=== PATIENT | female | born 1990 | race Caucasian/White ===

== ENCOUNTER 2020-03-29 14:25 | Outpatient (REF) | payer OTHER, SELFPAY | END 2020-03-29 14:26 | disposition home or self-care (01) | LOC: HO.LAB 14:25 | PROVIDERS: Visit Provider Internal Medicine | DX: Z20.828 Contact with and (suspected) exposure to other viral communicable diseases (principal) | CPT/HCPCS: C9803; U0003 ==

== ENCOUNTER 2020-04-06 12:52 | Outpatient (REF) | payer OTHER, SELFPAY ==
[2020-04-06 14:15] LABS: MANUAL DIFF FLAG NO
[2020-04-06 14:22] LABS: Basophils Percent Auto 0.3 % (0-2); Eosinophils Absolute Auto 0.1 X10*3/uL (0.0-0.4); Eosinophils Percent Auto 1.5 % (0-4); Hematocrit 43.2 % (37-47); Hemoglobin 13.6 g/dl (12.0-16.0); Imm Gran Abs Auto 0.03 X10*3/uL (0.00-0.03); Imm Gran Pct Auto 0.3 % (0.0-0.4); Lymphocytes Absolute Auto 2.8 X10*3/uL (1.2-4.9); Lymphocytes Percent Auto 29.3 % (20-40); Mean Corpuscular HGB Conc 31.5 g/dl (31.0-35.0); Mean Corpuscular Hemoglobin 27.3 pg (27.0-33.0); Mean Corpuscular Volume 86.6 fL (80-98); Mean Platelet Volume 9.9 fL (9.4-12.3); Monocytes Absolute Auto 0.7 X10*3/uL (0.1-1.2); Monocytes Percent Auto 6.8 % (2-11); Neutrophils Percent Auto 61.8 % (45-73); Platelet Count 393 X10*3/uL (160-400); Red Blood Count 4.99 X10*6/uL (4.20-5.50); Red Cell Distribution Width 13.4 % (11.0-16.0); White Blood Count 9.6 X10*3/uL (4.8-10.8)
[2020-04-06 14:43] LABS: Glucose Urine UA NEG (NEG); Leukocyte Esterase Urine NEG (NEG); Nitrite Urine NEG (NEG); PH 5.5 (5.0-8.0); Specific Gravity - Urine >= 1.030 (1.005-1.025); Urine Blood 2+ (NEG); Urine Ketones NEG (NEG); Urine Protein NEG (NEG-TRACE)
[2020-04-06 14:44] LABS: Carbon Dioxide 27 mmol/L (22-29); Chloride 106 mmol/L (96-108); Potassium 4.4 mmol/l (3.3-5.1); Sodium 140 mmol/L (135-145)
[2020-04-06 14:44] LABS: Appearance Urine HAZY; Color Urine YELLOW
[2020-04-06 14:45] LABS: Alanine Aminotransferase 14 U/L (0-31); Albumin Level 4.3 g/dL (3.5-5.0); Alkaline Phosphatase 104 U/L (39-117); Anion Gap 11 (12-20); Aspartate Amino Transferase 13 U/L (5-31); Bilirubin Total 0.4 mg/dL (0.0-1.0); Blood Urea Nitrogen 11 mg/dL (9-16); C Reactive Protein 1.68 mg/dL (< or = 0.50); Calcium 9.6 mg/dL (8.4-10.2); Estimated Glomerular Filt Rate > 60; Glucose Random 107 mg/dL (60-115); Rheumatoid Factor < 15.0 IU/mL (<15.0); Total Protein 7.6 g/dL (6.5-8.0)
[2020-04-06 14:53] LABS: Bacteria Urine 2+ /LPF; Mucus Urine TRACE /LPF; Squamous Epithelial Cell Urine 3+ /LPF; WBC Urine 0 /HPF (0-4)
[2020-04-06 15:24] LABS: Erythrocyte Sedimentation Rate 14 MM/HR (0-20)
[2020-04-07 12:47] LABS: Anti DNA DS Antibody 2 IU/mL; Antibody to SS-A Antigen <1.0 NEG AI (<1.0 NEG); Antibody to SS-B Antigen <1.0 NEG AI (<1.0 NEG)
[2020-04-09 11:43] LABS: Cyclic Citrullinated Peptide 16 UNITS
[2020-04-09 14:02] LABS: Complement C3 173 mg/dL (83-193)
== END 2020-04-06 12:53 | disposition home or self-care (01) ==
LOC: HO.LAB 12:52
PROVIDERS: PCP Internal Medicine; Visit Provider Student in an Organized Health Care Education/Training Program
DX: R76.8 Other specified abnormal immunological findings in serum (principal)
CPT/HCPCS: 36415; 80053; 81001; 85025; 85652; 86140; 86160; 86200; 86225; 86235; 86431; 99202

== ENCOUNTER 2020-04-23 14:50 | Outpatient (REF) | payer OTHER, SELFPAY | END 2020-04-23 14:51 | disposition home or self-care (01) | LOC: HO.LAB 14:50 | PROVIDERS: Visit Provider Internal Medicine | DX: Z20.822 Contact with and (suspected) exposure to COVID-19 (principal) | CPT/HCPCS: 36415; C9803; U0003 ==

== ENCOUNTER → 2020-05-03 13:33 | Outpatient (BNVA) | payer OTHER, SELFPAY | PROVIDERS: PCP Internal Medicine; Visit Provider Student in an Organized Health Care Education/Training Program | DX: Z76.89 Persons encountering health services in other specified circumstances (principal) ==

== ENCOUNTER 2020-05-07 14:54 | Outpatient (REF) | payer OTHER, SELFPAY | END 2020-05-07 14:55 | disposition home or self-care (01) | LOC: HO.LAB 14:54 | PROVIDERS: Visit Provider Internal Medicine | DX: Z20.822 Contact with and (suspected) exposure to COVID-19 (principal) | CPT/HCPCS: 36415; C9803; U0003 ==

== ENCOUNTER 2020-07-19 13:51 | Outpatient (REF) | payer OTHER, SELFPAY ==
[2020-07-19 14:22] LABS: MANUAL DIFF FLAG NO
[2020-07-19 14:28] LABS: Basophils Percent Auto 0.3 % (0-2); Eosinophils Absolute Auto 0.1 X10*3/uL (0.0-0.4); Eosinophils Percent Auto 0.7 % (0-4); Hematocrit 42.6 % (37-47); Hemoglobin 13.5 g/dl (12.0-16.0); Imm Gran Abs Auto 0.03 X10*3/uL (0.00-0.03); Imm Gran Pct Auto 0.3 % (0.0-0.4); Lymphocytes Absolute Auto 2.4 X10*3/uL (1.2-4.9); Lymphocytes Percent Auto 22.6 % (20-40); Mean Corpuscular HGB Conc 31.7 g/dl (31.0-35.0); Mean Corpuscular Hemoglobin 27.2 pg (27.0-33.0); Mean Corpuscular Volume 85.9 fL (80-98); Mean Platelet Volume 10.4 fL (9.4-12.3); Monocytes Absolute Auto 0.8 X10*3/uL (0.1-1.2); Monocytes Percent Auto 6.9 % (2-11); Neutrophils Absolute Auto 7.5 X10*3/uL (2.0-8.3); Neutrophils Percent Auto 69.2 % (45-73); Platelet Count 327 X10*3/uL (160-400); Red Blood Count 4.96 X10*6/uL (4.20-5.50); Red Cell Distribution Width 13.3 % (11.0-16.0); White Blood Count 10.8 X10*3/uL (4.8-10.8)
[2020-07-19 14:53] LABS: Alanine Aminotransferase 14 U/L (0-31); Albumin Level 4.5 g/dL (3.5-5.0); Alkaline Phosphatase 104 U/L (39-117); Anion Gap 13 (12-20); Aspartate Amino Transferase 13 U/L (5-31); Bilirubin Total 0.7 mg/dL (0.0-1.0); Blood Urea Nitrogen 8 mg/dL (9-16); Calcium 9.4 mg/dL (8.4-10.2); Carbon Dioxide 25 mmol/L (22-29); Chloride 105 mmol/L (96-108); Cholesterol 171 mg/dL; Estimated Glomerular Filt Rate > 60; Glucose Fasting 87 mg/dL (60-99); HDL Cholesterol 33 mg/dL; LDL Cholesterol Calculated 123 mg/dl; Potassium 3.9 mmol/L (3.3-5.1); Sodium 139 mmol/L (135-145); Total Protein 7.6 g/dL (6.5-8.0); Triglycerides 77 mg/dL
[2020-07-19 15:13] LABS: TSH reflex Free T4 1.62 uIU/mL (0.32-4.0); Vitamin D 25-OH Total 13.6 ng/mL (>30)
[2020-07-19 17:06] LABS: Glucose Urine UA NEG (NEG); Leukocyte Esterase Urine TRACE (NEG); Nitrite Urine NEG (NEG); Specific Gravity - Urine 1.025 (1.005-1.025); UACC Culture Trigger YES; Urine Blood 2+ (NEG); Urine Ketones 5 MG/DL (NEG); Urine Protein NEG (NEG-TRACE)
[2020-07-19 17:39] LABS: Appearance Urine HAZY; Color Urine YELLOW
[2020-07-19 18:02] LABS: Bacteria Urine 1+ /LPF; RBC Urine 0-2 /HPF (0); Squamous Epithelial Cell Urine 2+ /LPF; WBC Urine 0-2 /HPF (0-4)
== END 2020-07-19 13:52 | disposition home or self-care (01) ==
LOC: HO.LAB 13:51
PROVIDERS: PCP Internal Medicine; Visit Provider Internal Medicine
DX: Z00.00 Encounter for general adult medical examination without abnormal findings (principal); E55.9 Vitamin D deficiency, unspecified; K21.9 Gastro-esophageal reflux disease without esophagitis; G43.909 Migraine, unspecified, not intractable, without status migrainosus; J30.9 Allergic rhinitis, unspecified; E66.9 Obesity, unspecified
CPT/HCPCS: 36415; 80053; 80061; 81001; 81003; 82306; 84443; 85025; 87086

== ENCOUNTER 2020-08-23 10:01 | Outpatient (REF) | payer OTHER, SELFPAY ==
[2020-08-23 10:19] LABS: COVID-19 Test Positive (Negative)
== END 2020-08-23 10:02 | disposition home or self-care (01) ==
LOC: HO.LAB 10:01
PROVIDERS: Visit Provider Internal Medicine
DX: Z20.822 Contact with and (suspected) exposure to COVID-19 (principal)
CPT/HCPCS: 36415; 87635; C9803

== ENCOUNTER 2020-09-05 05:57 | Emergency (ER) | payer OTHER, SELFPAY ==
[2020-09-05 07:42] VITALS: BP 155/100; PULSE 68; RESP 16; TEMP 36.6; O2SAT 99; BMI 30.2
--- NOTE | 2020-09-05 07:51 | ED_ITS ---
HPI - Back Pain/Injury General Chief Complaint: Back Pain/Injury Stated Complaint: Back Pain Time Seen by Provider: 09/05/20 06:22 Source: patient Mode of arrival: ambulatory Limitations: no limitations History of Present Illness HPI Narrative: 30-year-old female who presents emergency department for evaluation of midthoracic back pain x2 days. Patient states that she has recovered from COVID-19 and tested positive 2 weeks prior. She states that 2 days prior she had a gradual onset of mid thoracic pain. She describes as a sharp pain which is intermittent. The pain is worse with movement. The pain does not change with breathing. She denied fever, chills, shortness of breath or cough. She denied dyspnea on exertion. The pain does not radiate to her arms or legs. She states the pain is an intermittent, sharp pain which is 10/10 at its worst. She has been taking Advil without any relief of her discomfort. She states she has had similar pain in the past and has had relief with tramadol. She does not recall any injury to her back. Related Data Previous Rx's Medication Instructions Recorded loratadine 10 mg tablet 10 mg PO DAILY PRN 30 Days #30 tab 03/23/20 omeprazole 40 mg capsule,delayed 40 mg PO DAILY PRN 30 Days #30 cap 03/23/20 release tramadol 50 mg tablet 50 mg PO .2 to 3 times PRN 28 Days 03/23/20 #84 tab azithromycin 250 mg tablet See Rx Instructions PO .COMPLEX #6 05/15/20 tab fluticasone propionate 50 2 spray INTRANASAL DAILY PRN 30 05/20/20 mcg/actuation nasal Days #16 g spray,suspension cyclobenzaprine 10 mg PO TID PRN #20 tab 09/05/20 tramadol 50 mg PO Q6H PRN 3 Days #10 tab 09/05/20 Allergies Allergy/AdvReac Type Severity Reaction Status Date / Time naproxen [NAPROXEN] Allergy Unknown RASH, Verified 05/20/20 16:54 SWOLLEN FEET, rash nitrofurantoin Allergy Unknown RASH, rash Verified 05/20/20 16:54 [NITROFURANTOIN] + nausea Review of Systems Review of Systems: Yes all other systems are reviewed and are negative Neurologic: Reports Abnormal speech present [facility] Past Medical History [facility] Narrative: Social history: She denies tobacco, and drug use. She states she drinks alcohol occasionally. Medical History Allergic rhinitis NILDA positive GERD without esophagitis Migraine Obesity (BMI 30-39.9) Patellofemoral arthralgia of left knee Pilar cyst Vitamin D deficiency Surgical History Hx of carpal tunnel repair Family History Family History Father HTN (hypertension) Mother HTN (hypertension) Brother No problems noted. Brother No problems noted. Brother No problems noted. Sister No problems noted. Social History Social History Alcohol intake: never Smoking Status: Former smoker Advance Directives: No Advance Directives Information Provided: No Patient : No Physical Exam Vital Signs: Vital Signs: Last Vital Signs Temp 97.9 F 09/05/20 07:42 Pulse 68 09/05/20 07:42 Resp 16 09/05/20 07:42 BP 155/100 H 09/05/20 07:42 Pulse Ox 99 09/05/20 07:42 Body Mass Index 30.2 Const: General: cooperative and healthy appearing Nutritional Appearance: overweight Orientation/consciousness: oriented to person and oriented to place Limitations: no limitations HENMT: Head: Yes normal to inspection, Yes normocephalic and Yes atraumatic Ears: external ears normal General nose exam: Normal external nose present Face and sinus: Yes normal facial exam Mouth: Normal oral and palatal mucosa present Throat: Yes posterior oropharynx normal Eyes: Periorbital: periorbital findings normal Eyelids: Yes eyelids normal Conjunctivae: conjunctivae normal Sclerae: sclerae normal Corneas: corneas normal Pupils: Equal, round and reactive pupils present Direct Ophthalmoscopy: normal light reflex Neck: Neck: Yes full ROM, Yes no lymphadenopathy, Yes no meningeal signs, Yes trachea midline and Yes supple Chest: Chest palpation & inspection: normal inspection of the chest and normal palpation of entire chest wall Resp: Effort & Inspection: normal respiratory effort and able to speak in complete sentences Auscultation: clear to auscultation bilaterally Cardio: Rate: regular rate Rhythm: regular rhythm Heart sounds: S1 normal heart sound present, S2 normal heart sound present and no murmurs GI: Inspection: Yes normal to inspection Palpation (GI): Soft to palpation, nontender, no guarding, not rigid and No hepatosplenomegaly present : General: Yes no CVA tenderness Back/Spine/Pelvis: Back: no CVA tenderness Cervical Spine: normal cervical lordosis Thoracic/Lumbar Spine: thoracic and lumbar spine normal to inspection, straight leg raise negative bilaterally and paraspinal muscle tenderness bilaterally in the mid thoracic Skin: Lesions: no lesions Rashes: no rashes Wounds: no wounds Neuro: General: oriented to person, oriented to place and no meningeal signs Cranial nerves: Yes CN's II-XII intact bilaterally and Yes Equal, round and reactive pupils present Cognition (Neuro): normal cognition Speech: Abnormal speech present Motor exam (neuro): 5/5 motor strength present throughout Extrem: General: Yes normal to inspection and Yes full ROM Psych: Appearance: well kempt Mental Status: mental status grossly normal Speech and movement: Normal speech and movement present Affect: normal affect Attitude: cooperative Thought process: Normal thought process present Thought content: Normal thought content present Course Course Course Narrative: 30-year-old female who is COVID positive 2 weeks prior and is now asymptomatic from her COVID infection but presents with 2 days of midthoracic back pain. The pain changes with movement and is not worse with breathing. She has had no shortness of breath or dyspnea on exertion. Vital signs reveal that she was hypertensive with a blood pressure of 155/100 otherwise were normal with a respiratory rate of 16, pulse of 68 and O2 saturation of 99% on room air. She was also afebrile. Her examination did reveal tenderness with palpation of the paraspinal muscles in the midthoracic area. At this time I do not think that her back pain is related to her COVID-19 infection and is more consistent with musculoskeletal strain. Patient was advised to take Advil (ibuprofen) and Tylenol. She was prescribed tramadol since this has helped her in the past with back pain and she was also prescribed Flexeril. She was given verbal and printed instructions and discharged home. Mass PAT revealed 5 prescriptions for controlled medications, 3 for tramadol in the past, with the last prescription being filled in March 2020. Discharge Plan Discharge Clinical Impression: Back strain Qualifiers: Encounter type: initial encounter Qualified Code(s): S39.012A - Strain of muscle, fascia and tendon of lower back, initial encounter Patient Disposition: Home, Self-Care Instructions: Thoracic Back Strain (ED) Additional Instructions: Back Pain Discharge Instructions: Take Advil (ibuprofen) 200 mg pills, 3 pills every 6 hours as needed for pain. Take Tyleno(acetaminophen) 500 mg pills, 2 pills every 6 hours as needed for pain. Take Flexerl(cyclobenzaprine) 10 mg pills, 1 pill every 8 hours as needed for pain or muscle spasm. This is a prescription medication. This medication will make you sleepy, therefore do not drive or work while taking this medication. For pain not relieved by Advil and Tylenol take tramadol 50 mg tablets, 1 pill every 6 hours as needed for pain. This medication will make you sleepy, do not drive or work while taking this medication. This medication can be addicting, if you are worried about addiction then you can ask the pharmacist for less pills than prescribed or not get the prescription filled. Apply ice for 15 minutes to the area that hurts on your back, then apply a heating a pad on low for 15 minutes. Do this 4-6 times a day to help reduce the pain in your back. Continue with normal activities as tolerated since staying in bed and not moving around will make your pain worse. You can also try over the counter lidocaine patches as directed on the box to help with the pain. Please return to the Emergency Department or see your doctor immediately if your symptoms get worse or if you develop any new symptoms that are concerning you. Follow up with your doctor in 2 day. Please read the other printed discharge instructions on back pain. Prescriptions: New tramadol 50 mg tablet 50 mg PO Q6H PRN (Reason: pain) 3 Days Qty: 10 RF: 0 cyclobenzaprine 10 mg tablet 10 mg PO TID PRN (Reason: muscle pain or spasm) Qty: 20 RF: 0 No Action loratadine 10 mg tablet 10 mg PO DAILY PRN (Reason: allergy symptoms) 30 Days Qty: 30 RF: 12 omeprazole 40 mg capsule,delayed release(DR/EC) 40 mg PO DAILY PRN (Reason: heartburn or abdominal pain) 30 Days Qty: 30 RF: 12 tramadol 50 mg tablet 50 mg PO .2 to 3 times PRN (Reason: pain) 28 Days Qty: 84 RF: 0 azithromycin 250 mg tablet See Rx Instructions PO .COMPLEX Qty: 6 RF: 0 fluticasone propionate 50 mcg/actuation spray,suspension 2 spray intranasal DAILY PRN (Reason: allergy symptoms) 30 Days Qty: 16 RF: 12
== END 2020-09-05 08:23 | disposition home or self-care (01) ==
PROVIDERS: Emergency Provider Emergency Medicine Emergency Medical Services; PCP Internal Medicine
DX: S39.012A Strain of muscle, fascia and tendon of lower back, initial encounter (principal); M54.6 Pain in thoracic spine; X58.XXXA Exposure to other specified factors, initial encounter; Y93.9 Activity, unspecified; Y92.9 Unspecified place or not applicable; Y99.9 Unspecified external cause status; Z86.16 Personal history of COVID-19; Z87.891 Personal history of nicotine dependence; Z79.899 Other long term (current) drug therapy
CPT/HCPCS: 99284

== ENCOUNTER 2020-10-05 21:24 | Emergency (ER) | payer OTHER, SELFPAY ==
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
[2020-10-05 21:25] VITALS: BP 151/97; PULSE 96; RESP 18; TEMP 36.9; O2SAT 98; BMI 29.2
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
[2020-10-06] MEDS: Cyclobenzaprine HCl 10 MG TABLET PO
[2020-10-06 00:15] LABS: Glucose Urine UA NEG (NEG); Leukocyte Esterase Urine NEG (NEG); Nitrite Urine NEG (NEG); Urine Blood NEG (NEG); Urine Ketones NEG (NEG); Urine Protein NEG (NEG-TRACE)
[2020-10-06 00:18] LABS: Appearance Urine CLEAR; Color Urine YELLOW; UPreg QC Valid YES; Urine Pregnancy NEGATIVE (NEGATIVE)
== END 2020-10-06 02:28 | disposition home or self-care (01) ==
PROVIDERS: Nurse Practitioner Family; Emergency Provider Internal Medicine; PCP Internal Medicine
DX: Z04.1 Encounter for examination and observation following transport accident (principal)
CPT/HCPCS: 71046; 81003; 81025; 99283; 99284

== ENCOUNTER → 2020-10-18 14:25 | Outpatient (BNVA) | payer OTHER, SELFPAY | PROVIDERS: PCP Internal Medicine; Referring Provider Internal Medicine; Visit Provider Surgery | DX: L72.11 Pilar cyst (principal) | CPT/HCPCS: 99212 ==

== ENCOUNTER 2020-10-24 08:36 | Day surgery (SDC) | payer OTHER, SELFPAY ==
--- NOTE | 2020-10-23 12:48 | P.CONAN_ITS ---
Documented by User: Poppy Garcíaney 10/23/20 12:50 HPI - Anesthesia Eval Consult details Narrative: 30yo F for Excision of Recurrent Pilar Cysts x3 PMFSH Active Problems Active Problems: All Active Problems (Updated 10/18/20 @ 14:56 by Aaron Carolina MD) Pilar cyst (Acute) Insect bites (Acute) Upper respiratory tract infection (Acute) Obesity (BMI 30-39.9) (Acute) GERD without esophagitis (Acute) Vitamin D deficiency (Acute) Allergic rhinitis (Acute) Migraine (Acute) Annual physical exam (Acute) NILDA positive (Acute) Past Medical History Medical History Allergic rhinitis NILDA positive GERD without esophagitis Migraine Obesity (BMI 30-39.9) Patellofemoral arthralgia of left knee Pilar cyst Vitamin D deficiency Family History Family History Father HTN (hypertension) Mother HTN (hypertension) Brother No problems noted. Brother No problems noted. Brother No problems noted. Sister No problems noted. Surgical History Surgical History History of excision of mass Hx of carpal tunnel repair Social History Social History Alcohol intake: current Alcohol intake frequency: holidays/special occasions only Patient Tobacco Use Status: Former Tobacco user Use of substances other than those prescribed or required for medical reasons: No Have you been hit, kicked, punched, or otherwise hurt by someone within the past year? If so, by whom?: No Are you DNR?: No Advance Directives: No Advance Directives Information Provided: Yes Recently lost weight without trying: No Nutrition Risks: No Nutritional Risk Patient : No (pt sts has her menses now) Meds Allergies Allergy/AdvReac Type Severity Reaction Status Date / Time naproxen [NAPROXEN] Allergy Unknown RASH, Verified 10/05/20 23:33 SWOLLEN FEET, rash nitrofurantoin Allergy Unknown RASH, rash Verified 10/05/20 23:33 [NITROFURANTOIN] + nausea Home Medications Medication Instructions Recorded Confirmed Last Taken Type albuterol sulfate 90 mcg/actuation 2 puff INHALATION Q6H PRN 09/12/20 10/18/20 Unknown History aerosol inhaler tramadol 50 mg tablet 50 mg PO Q6H PRN tab 09/17/20 10/18/20 Unknown History Exam Exam Date and Time: October 23, 2020 1248 Pertinent Lab Results Pertinent Lab Results: Laboratory Tests 07/19/20 07/19/20 14:00 14:00 WBC 10.8 Hgb 13.5 Hct 42.6 Sodium 139 Potassium 3.9 Chloride 105 Carbon Dioxide 25 BUN 8 L Creatinine 0.70 Assessment and Plan Assessment Anesthesia Assessment: Chart Reviewed Documented by User: Heidy Holguin 10/24/20 09:16 [facility] Past Medical History Medical History Allergic rhinitis NILDA positive GERD without esophagitis Migraine Obesity (BMI 30-39.9) Patellofemoral arthralgia of left knee Pilar cyst Vitamin D deficiency Family History Family History Father HTN (hypertension) Mother HTN (hypertension) Brother No problems noted. Brother No problems noted. Brother No problems noted. Sister No problems noted. Surgical History Surgical History History of excision of mass Hx of carpal tunnel repair Social History Social History Alcohol intake: current Alcohol intake frequency: holidays/special occasions only Patient Tobacco Use Status: Former Tobacco user Use of substances other than those prescribed or required for medical reasons: No Have you been hit, kicked, punched, or otherwise hurt by someone within the past year? If so, by whom?: No Are you DNR?: No Advance Directives: No Advance Directives Information Provided: Yes Recently lost weight without trying: No Nutrition Risks: No Nutritional Risk Patient : No (pt sts has her menses now) Meds Allergies Allergy/AdvReac Type Severity Reaction Status Date / Time naproxen [NAPROXEN] Allergy Unknown RASH, Verified 10/05/20 23:33 SWOLLEN FEET, rash nitrofurantoin Allergy Unknown RASH, rash Verified 10/05/20 23:33 [NITROFURANTOIN] + nausea Home Medications Medication Instructions Recorded Confirmed Last Taken Type albuterol sulfate 90 mcg/actuation 2 puff INHALATION Q6H PRN 09/12/20 10/18/20 Unknown History aerosol inhaler tramadol 50 mg tablet 50 mg PO Q6H PRN tab 09/17/20 10/18/20 Unknown History Exam Airway Mallampati Class: II TM Dist: >3cm Neck ROM: Full Assessment and Plan Assessment Anesthesia Assessment: Anesthesia Plan Discussed and Chart Reviewed Final Anesthetic Review NPO: Yes ASA Class: II Final Preanesthetic Review: No Changes in Pt Med Stat, Consent Obtained/Reviewed and Anes Risks/Benef Reviewed Patient Risk: Low Procedure Risk: Low Anesthetic Plan Anesthetic Plan: MAC: Disposition: Standard PACU
[2020-10-24 07:17] VITALS: BMI 29.2
[2020-10-24 08:59] VITALS: BP 140/67; PULSE 89; RESP 18; TEMP 36.9; O2SAT 98
--- NOTE | 2020-10-24 09:23 | MHC.SHP ---
Pre-Procedural Eval Section A Date of Service: 10/24/20 The patient is an INPATIENT: No Changes since office visit: Yes Patient answered all questions; No Cold of Flu in the past 2 weeks, No New Medical Problems and No Changes in Medication The History & Physical has been completed within 30 days and I have reviewed it.: Yes Section B Chief Complaint: Pilar Cysts Allergies: Allergies Allergy/AdvReac Type Severity Reaction Status Date / Time naproxen [NAPROXEN] Allergy Unknown RASH, Verified 10/05/20 23:33 SWOLLEN FEET, rash nitrofurantoin Allergy Unknown RASH, rash Verified 10/05/20 23:33 [NITROFURANTOIN] + nausea Plan Diagnosis/Plan: Unchanged I have reviewed the history and physical and performed a pertinent physical examination on my patient. No changes have occurred unless specified.
[2020-10-24] MEDS: Lactated Ringers 1,000 ML 100 ML IVCONT (09:25)
[2020-10-24 09:30] LABS: UPreg QC Valid YES; Urine Pregnancy NEGATIVE (NEGATIVE)
--- NOTE | 2020-10-24 10:11 | W.PM.OPN ---
Operative Note Operative Note Date of Service: 10/24/20 Narrative: Preoperative diagnosis: Pilar cyst x3 Postoperative diagnosis: same Procedure: excision of Pilar cyst x3 Surgeon: Aaron Carolina MD [employer]rrigation Equipment Mechanic: no physician Anesthesia: mac Indications for procedure: 30-year-old female presenting with a previous history of Pilar cyst excised under local anesthesia. Patient now has 3 new Pilar cyst which are causing discomfort she is requesting vision under seizure. Operative findings: Pilar cyst x3, including frontal scalp cyst measuring 1 cm, left parietal cyst measuring 1 cm, and right occipital cyst measuring 1.5 cm Specimen: Pilar cyst x3 Estimated blood loss: 2 mL Complications: none Procedure details: patient was brought to the OR and placed in a supine position. After administering light sedation the patient's scalp was prepped with Betadine and draped in a sterile fashion. A surgical time-out was called the consent confirmed. Patient received preoperative antibiotics and Venodyne boots were in place. Local anesthesia consisting of 0.25% Sensorcaine with epinephrine was then infiltrated over each of the cyst. Beginning with the frontal scalp incision was made directly over the cyst. This was carried down through to subcutaneous tissue. Blunt dissection was then used using a hemostat to dissect out a complete Pilar cyst. This was sent to pathology for further examination. Skin was then closed using a single 2-0 Prolene suture. Attention was then directed to the left parietal cyst which again was anesthetized with local anesthesia. Incision was then made over the cystic carried out through the subcutaneous tissue. Blunt dissection was then used to dissect the cyst from the subcutaneous tissue. This was sent to pathology for further examination. Skin was then closed using a single 2-0 Prolene suture. Attention was then directed to the occipital lesion on the right side. Additional local was infiltrated around the cyst. Incision was then made with a scalpel carried out through subcutaneous tissue. Blunt dissection was then used to dissect the cyst completely from the subcutaneous tissue. Skin was then closed using the 2 0 Prolene suture. The patient tolerated the procedure well. Sponge, instrument, needle counts reported as correct. She was transferred to PACU in stable condition.
[2020-10-24 10:17] VITALS: BP 118/68; PULSE 112; RESP 16; TEMP 36.3; O2SAT 97
[2020-10-24 10:33] VITALS: BP 133/71; PULSE 78; RESP 16; TEMP 36.3; O2SAT 97
== END 2020-10-24 11:00 | disposition home or self-care (01) ==
PROVIDERS: Nurse Practitioner; PCP Internal Medicine; Visit Provider Surgery
PROC: (CPT 11422; principal; 2020-10-24 10:20)
DX: L72.11 Pilar cyst (principal); E55.9 Vitamin D deficiency, unspecified; J30.9 Allergic rhinitis, unspecified; R76.0 Raised antibody titer; Z79.899 Other long term (current) drug therapy; Z87.891 Personal history of nicotine dependence
CPT/HCPCS: 11422; 11421 ×2; 81025; 88304; J0690; J2250; J2405; J3010

== ENCOUNTER → 2020-11-02 14:37 | Outpatient (BNVA) | payer OTHER, SELFPAY | PROVIDERS: PCP Internal Medicine; Referring Provider Internal Medicine; Visit Provider Surgery | DX: Z48.817 Encounter for surgical aftercare following surgery on the skin and subcutaneous tissue (principal); Z87.2 Personal history of diseases of the skin and subcutaneous tissue | CPT/HCPCS: 99212 ==

== ENCOUNTER 2021-02-12 17:00 | Outpatient (RCR) | payer OTHER, SELFPAY ==
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
--- NOTE | 2021-02-12 18:33 | MHC.PT.DC ---
[facility] [place] Office [place] Office [place] Office [address] Clement Tidwell [address] [phone] F: [phone] F: [phone] F: [phone] F: [phone] Physical Therapy Discharge Report Diagnosis: Low Back Pain Date of Surgery: Date of Evaluation: 12/17/20 Date of Discharge: 02/12/21 Treatments to Date: 12 Cancellations to Date: No Shows to Date: 1 Discharge Status: Achieved Goals Improved Function Independent with HEP Discharge Summary: Pt has made good progress since SOC and has had a decrease in pain and improved tolerance for exercise. She has made good progress toward her goals and is being D/C from skilled PT services as she has reached a functional plateau. Pt reports no further questions or concerns for PT at this time. She has printed copy of HEP and has theraband to perform HEP. No further PT indicated at this time. Electronically signed by: Cindy Dhillon, PT, DPT Please sign and return to therapist. Thank you for your referral.
== END 2021-02-12 18:31 | disposition home or self-care (01) ==
LOC: HO.PT 17:00
PROVIDERS: PCP Internal Medicine; Visit Provider Internal Medicine
DX: M54.5 Low back pain (principal)
CPT/HCPCS: 97014; 97110; 97162; 97530

== ENCOUNTER 2021-08-09 11:05 | Outpatient (REF) | payer OTHER, SELFPAY ==
[2021-08-09 11:34] LABS: Basophils Absolute Auto 0.1 X10*3/uL (0.0-0.2); Basophils Percent Auto 0.5 % (0-2); Eosinophils Absolute Auto 0.1 X10*3/uL (0.0-0.4); Eosinophils Percent Auto 1.4 % (0-4); Hematocrit 45.5 % (37.0-47.0); Imm Gran Abs Auto 0.03 X10*3/uL (0.00-0.03); Imm Gran Pct Auto 0.3 % (0.0-0.4); Lymphocytes Absolute Auto 2.5 X10*3/uL (1.2-4.9); Lymphocytes Percent Auto 25.7 % (20-40); MANUAL DIFF FLAG SCAN; Mean Corpuscular HGB Conc 30.8 g/dl (31.0-35.0); Mean Corpuscular Hemoglobin 26.6 pg (27.0-33.0); Mean Corpuscular Volume 86.3 fL (80.0-98.0); Monocytes Absolute Auto 0.7 X10*3/uL (0.1-1.2); Monocytes Percent Auto 7.4 % (2-11); Neutrophils Absolute Auto 6.4 x10*3/uL (2.0-8.3); Neutrophils Percent Auto 64.7 % (45-73); PLT CLUMP 1; Red Blood Count 5.27 X10*6/uL (4.20-5.50); Red Cell Distribution Width 13.8 % (11.0-16.0); SCAN SMEAR FLAG 1
[2021-08-09 12:07] LABS: White Blood Count 9.9 X10*3/uL (4.8-10.8)
[2021-08-09 12:08] LABS: SLIDE REVIEW VERIFIED
[2021-08-09 12:20] LABS: TSH reflex Free T4 2.01 uIU/mL (0.32-4.0); Vitamin D 25-OH Total 8.7 ng/mL (>30)
[2021-08-09 12:22] LABS: Appearance Urine CLOUDY; Color Urine YELLOW; Glucose Urine UA NEG (NEG); Leukocyte Esterase Urine NEG (NEG); Nitrite Urine NEG (NEG); PH 5.5 (5.0-8.0); Specific Gravity - Urine >= 1.030 (1.005-1.025); UACC Culture Trigger NO; Urine Blood 2+ (NEG); Urine Ketones NEG (NEG); Urine Protein NEG (NEG-TRACE)
[2021-08-09 12:26] LABS: Alanine Aminotransferase 10 U/L (0-31); Albumin Level 4.1 g/dL (3.5-5.0); Alkaline Phosphatase 97 U/L (39-117); Anion Gap 13 (12-20); Aspartate Amino Transferase 15 U/L (5-31); Bilirubin Total 0.3 mg/dL (0.0-1.0); Blood Urea Nitrogen 13 mg/dL (9-16); Calcium 9.6 mg/dL (8.4-10.2); Carbon Dioxide 23 mmol/L (22-29); Chloride 108 mmol/L (96-108); Cholesterol 174 mg/dL; Estimated Glomerular Filt Rate > 60; Glucose Fasting 113 mg/dL (60-99); HDL Cholesterol 34 mg/dL; LDL Cholesterol Calculated 123 mg/dl; Potassium 4.8 mmol/L (3.3-5.1); Sodium 139 mmol/L (135-145); Total Protein 7.5 g/dL (6.5-8.0); Triglycerides 85 mg/dL
[2021-08-09 13:16] LABS: Squamous Epithelial Cell Urine 3+ /LPF
[2021-08-09 13:17] LABS: Amorphous Sediment Urine 2+ /LPF
== END 2021-08-09 11:06 | disposition home or self-care (01) ==
LOC: HO.LAB 11:05
PROVIDERS: PCP Internal Medicine; Visit Provider Internal Medicine
DX: Z00.00 Encounter for general adult medical examination without abnormal findings (principal); E66.9 Obesity, unspecified; E55.9 Vitamin D deficiency, unspecified
CPT/HCPCS: 36415; 80053; 80061; 81001; 82306; 84443; 85025

== ENCOUNTER 2022-01-01 15:57 | Emergency (ER) | payer OTHER, SELFPAY ==
[2022-01-01 16:19] VITALS: BP 144/95; PULSE 114; RESP 18; O2SAT 99; BMI 30.2
[2022-01-01 16:43] LABS: Strep A Nucleic Acid Negative (Negative)
[2022-01-01 16:47] LABS: Influenza A Negative (Negative); Influenza B2 Negative (Negative)
[2022-01-01 16:48] LABS: COVID-19 Test Negative (Negative); IDNOW Serial# 55D5AD1C
--- NOTE | 2022-01-01 18:52 | ED_ITS ---
HPI - General Adult General Chief complaint: General Medical Stated complaint: Throat Pain Time Seen by Provider: 01/01/22 18:50 History of Present Illness HPI narrative: Patient is a 31-year-old female presented today with having sore throat that has been ongoing for few days. No fever no chills. Pain on swallowing. Both sides are hurting. No coughing or congestion or respiratory symptoms. Patient is from home. No history of DC in the past. No history diabetes. Question scarlett rgies to naproxen patient claims that she swells up. It had Motrin in the past without any issues.. Related Data Previous Rx's Medication Instructions Recorded mometasone 0.1 % topical cream 1 appl topical DAILY PRN skin 09/25/20 irritation/rash #45 grams albuterol sulfate 90 mcg/actuation 2 puff inhalation Q6H PRN 04/02/21 aerosol inhaler shortness of breath or wheezing 30 days #8.5 grams loratadine 10 mg tablet 10 mg PO DAILY PRN allergy 04/02/21 symptoms 30 days #30 tabs omeprazole 40 mg capsule,delayed 40 mg PO DAILY PRN heartburn or 04/02/21 release abdominal pain 30 days #30 caps tramadol 50 mg tablet 50 mg PO .2 to 3 times PRN pain 28 04/02/21 days #84 tabs fluticasone propionate 50 2 spray intranasal DAILY PRN 10/15/21 mcg/actuation nasal allergy symptoms 30 days #16 grams spray,suspension amoxicillin 500 mg tablet 500 mg PO BID #10 tabs 11/13/21 cholecalciferol (vitamin D3) 1,250 1,250 mcg PO QWEEK #12 caps 11/13/21 mcg (50,000 unit) capsule lidocaine 4 % topical patch 1 patch topical DAILY PRN pain #15 11/13/21 (Aspercreme (lidocaine)) ea ibuprofen 400 mg tablet 400 mg PO Q6H PRN pain #20 tabs 01/01/22 penicillin V potassium 500 mg 500 mg PO TID 10 days #30 tabs 01/01/22 tablet Allergies Allergy/AdvReac Type Severity Reaction Status Date / Time naproxen [NAPROXEN] Allergy Unknown RASH, Verified 11/13/21 17:06 SWOLLEN FEET, rash nitrofurantoin Allergy Unknown RASH, rash Verified 11/13/21 17:06 [NITROFURANTOIN] + nausea Review of Systems Review of Systems: Positive sore throat, no difficulty swallowing. No change in voice Yes all other systems are reviewed and are negative [facility] Past Medical History Attestation statement: The following information was validated with the patient. Medical History Allergic rhinitis NILDA positive GERD without esophagitis Migraine Obesity (BMI 30-39.9) Patellofemoral arthralgia of left knee Vitamin D deficiency Surgical History History of excision of mass Hx of carpal tunnel repair Pilar cyst Family History Family History Father HTN (hypertension) Mother HTN (hypertension) Brother No problems noted. Brother No problems noted. Brother No problems noted. Sister No problems noted. Social History Social History Housing: House Alcohol intake: current Alcohol intake frequency: holidays/special occasions only Patient Tobacco Use Status: Former Tobacco user Second Hand Smoke Exposure: Yes service: No Current occupational status: employed Cognitive needs: No Hearing needs: No Vision needs: Yes Physical Exam ED Vital Signs: Vital Signs - 24 hr 01/01/22 16:19 Pulse Rate 114 H Respiratory Rate 18 Blood Pressure 144/95 H Pulse Oximetry 99 Oxygen Delivery Method Room Air BMI result Body Mass Index 30.2 Appearance: Alert. Oriented X3. No acute distress. Eyes: Pupils equal, round and reactive to light. ENT: Pharynx positive redness in the posterior pharynx. Tonsils are enlarged with exudate is noted bilaterally. Neck: Normal inspection. Neck supple. No lymph nodes noted. No crepitus CVS: Normal heart rate and rhythm. Pulses normal. Normal S1 and S2 Respiratory: No respiratory distress. Breath sounds normal. No Wheezing. No rales Abdomen: Soft and nontender. No rigidity. No distention. good BS x4 Skin: Skin warm and dry. Normal skin color. Normal skin turgor. Extremities: No lower extremity edema. Neurovascular intact to all extremities. No Lacerations. No Rash Neuro: Oriented X 3. No motor deficit. No sensory deficit. Moving all extermities. No slurred speech Medical Decision Making MDM Narrative Medical decision making narrative: Positive pharyngitis. Will start antibiotics. Patient's strep was negative. However given the appearance of the pharyngitis. Will prescribe patient with penicillin. Motrin for pain. Patient had Motrin past without any difficulties. Being discharged home in stable condition. No change in voice. Able to tolerate fluids. Lab Data Labs: Lab Results 01/01/22 01/01/22 01/01/22 Range/Units 16:22 16:22 16:22 COVID-19 ([facility]) Negative (Negative) COVID-19 Clin Com See Note Influenza Type A ([facility]) Negative (Negative) Influenza Type B ([facility]) Negative (Negative) Influenza A & B Note See Note S. pyogenes GrpA [facility] Negative (Negative) Discharge Plan Discharge Clinical Impression: Acute pharyngitis Patient Disposition: Home, Self-Care Instructions: Pharyngitis (ED) Prescriptions: New ibuprofen 400 mg tablet 400 mg PO Q6H PRN (Reason: pain) Qty: 20 0RF penicillin V potassium 500 mg tablet 500 mg PO TID 10 Days Qty: 30 0RF No Action tramadol 50 mg tablet 50 mg PO .2 to 3 times PRN (Reason: pain) 28 Days Qty: 84 0RF Rx Instructions: take 1 tablet 2 to 3 times a day as needed for increased pain albuterol sulfate 90 mcg/actuation HFA aerosol inhaler 2 puff inhalation Q6H PRN (Reason: shortness of breath or wheezing) 30 Days Qty: 8.5 1RF Rx Instructions: 2 puffs as needed Inhalation every 6 hrs loratadine 10 mg tablet 10 mg PO DAILY PRN (Reason: allergy symptoms) 30 Days Qty: 30 12RF omeprazole 40 mg capsule,delayed release(DR/EC) 40 mg PO DAILY PRN (Reason: heartburn or abdominal pain) 30 Days Qty: 30 12RF fluticasone propionate 50 mcg/actuation spray,suspension 2 spray intranasal DAILY PRN (Reason: allergy symptoms) 30 Days Qty: 16 12RF Rx Instructions: administer into each nostril mometasone 0.1 % cream 1 appl topical DAILY PRN (Reason: skin irritation/rash) Qty: 45 1RF cholecalciferol (vitamin D3) 1,250 mcg (50,000 unit) capsule 1,250 mcg PO QWEEK Qty: 12 0RF lidocaine [Aspercreme (lidocaine)] 4 % adhesive patch,medicated 1 patch topical DAILY PRN (Reason: pain) Qty: 15 0RF amoxicillin 500 mg tablet 500 mg PO BID Qty: 10 0RF Referrals: Nico Riley MD [Primary Care Provider] -
[2022-01-01 19:13] VITALS: BP 134/96; PULSE 127; RESP 16; O2SAT 98
== END 2022-01-01 19:44 | disposition home or self-care (01) ==
PROVIDERS: Emergency Provider Emergency Medicine Emergency Medical Services; PCP Internal Medicine
DX: J02.9 Acute pharyngitis, unspecified (principal); Z20.822 Contact with and (suspected) exposure to COVID-19; Z79.899 Other long term (current) drug therapy
CPT/HCPCS: 87502; 87635; 87651; 99283

== ENCOUNTER 2022-05-22 09:31 | Outpatient (REF) | payer OTHER, SELFPAY ==
[2022-05-22 09:43] LABS: MANUAL DIFF FLAG NO
[2022-05-22 10:01] LABS: Basophils Absolute Auto 0.1 X10*3/uL (0.0-0.2); Basophils Percent Auto 0.5 % (0-2); Eosinophils Absolute Auto 0.1 X10*3/uL (0.0-0.4); Hematocrit 45.3 % (37.0-47.0); Hemoglobin 14.3 g/dl (12.0-16.0); Imm Gran Abs Auto 0.04 X10*3/uL (0.00-0.03); Imm Gran Pct Auto 0.3 % (0.0-0.4); Lymphocytes Absolute Auto 2.6 X10*3/uL (1.2-4.9); Lymphocytes Percent Auto 19.7 % (20-40); Mean Corpuscular HGB Conc 31.6 g/dl (31.0-35.0); Mean Corpuscular Hemoglobin 26.3 pg (27.0-33.0); Mean Corpuscular Volume 83.4 fL (80.0-98.0); Mean Platelet Volume 10.2 fL (9.4-12.3); Monocytes Absolute Auto 0.7 X10*3/uL (0.1-1.2); Monocytes Percent Auto 5.5 % (2-11); Neutrophils Absolute Auto 9.6 x10*3/uL (2.0-8.3); Platelet Count 436 X10*3/uL (160-400); Red Blood Count 5.43 X10*6/uL (4.20-5.50); Red Cell Distribution Width 13.8 % (11.0-16.0); White Blood Count 13.1 X10*3/uL (4.8-10.8)
[2022-05-22 10:17] LABS: Appearance Urine Cloudy; Color Urine Yellow; Glucose Urine UA Negative (Negative); Leukocyte Esterase Urine Moderate (2+) (Negative); Nitrite Urine Negative (Negative); PH 5.5 (5.0-9.0); Specific Gravity - Urine 1.015 (1.005-1.025); UMIC TRIGGER UACC YES; Urine Blood Trace (Negative); Urine Ketones Negative (Negative); Urine Protein Negative (Neg-Trace)
[2022-05-22 10:22] LABS: Bacteria Urine Trace (None Seen); Hyaline Casts Urine 0-2 /LPF (0-2); UACC Culture Trigger YES
[2022-05-22 10:28] LABS: Alanine Aminotransferase 16 U/L (0-31); Albumin Level 4.5 g/dL (3.5-5.0); Alkaline Phosphatase 100 U/L (39-117); Anion Gap 11 (12-20); Aspartate Amino Transferase 16 U/L (5-31); Bilirubin Total 0.7 mg/dL (0.0-1.0); Blood Urea Nitrogen 7 mg/dL (9-16); Calcium 9.8 mg/dL (8.4-10.2); Carbon Dioxide 28 mmol/L (22-29); Chloride 105 mmol/L (96-108); Cholesterol 167 mg/dL; Estimated Glomerular Filt Rate > 60; Glucose Fasting 105 mg/dL (60-99); HDL Cholesterol 42 mg/dL; LDL Cholesterol Calculated 115 mg/dl; Potassium 4.4 mmol/L (3.3-5.1); Sodium 140 mmol/L (135-145); Total Protein 7.5 g/dL (6.5-8.0); Triglycerides 51 mg/dL
[2022-05-22 10:45] LABS: TSH reflex Free T4 1.92 uIU/mL (0.32-4.0); Vitamin D 25-OH Total 17.2 ng/mL (>30)
== END 2022-05-22 09:32 | disposition home or self-care (01) ==
LOC: HO.LAB 09:31
PROVIDERS: PCP Internal Medicine; Visit Provider Internal Medicine
DX: Z00.00 Encounter for general adult medical examination without abnormal findings (principal); E78.00 Pure hypercholesterolemia, unspecified; E55.9 Vitamin D deficiency, unspecified
CPT/HCPCS: 36415; 80053; 80061; 81001; 82306; 84443; 85025; 87086

== ENCOUNTER 2022-06-10 00:44 | Emergency (ER) | payer OTHER, SELFPAY ==
[2022-06-10 00:57] VITALS: BP 128/78; PULSE 66; RESP 16; O2SAT 99; BMI 25.0
--- NOTE | 2022-06-10 01:44 | ED_ITS ---
HPI - Allergic Reaction General Chief complaint: Allergic Reaction Stated complaint: allergic reaction Time Seen by Provider: 06/10/22 01:39 Source: patient Mode of arrival: ambulatory Limitations: no limitations History of Present Illness HPI narrative: Patient complaining of with the creation to cats feels whole body is burning with slight erythema of the cheek in the forearm no hives noticed patient claimed that she had hives earlier and she took loratadine no shortness of breath patient very limited in answering the questions Related Data Previous Rx's Medication Instructions Recorded ibuprofen 400 mg tablet 400 mg PO Q6H PRN pain #20 tabs 01/01/22 mometasone 0.1 % topical cream 1 appl topical DAILY PRN skin 05/13/22 irritation/rash #45 grams Ventolin HFA 90 mcg/actuation 2 puff inhalation Q6H PRN 05/22/22 aerosol inhaler (albuterol sulfate) shortness of breath or wheezing #18 grams cholecalciferol (vitamin D3) 1,250 1,250 mcg PO QWEEK 3 months #13 05/22/22 mcg (50,000 unit) capsule caps fluticasone propionate 50 2 spray intranasal DAILY PRN 05/22/22 mcg/actuation nasal allergy symptoms 30 days #16 grams spray,suspension lidocaine 4 % topical patch 1 patch topical DAILY PRN pain #15 05/22/22 (Aspercreme (lidocaine)) ea omeprazole 40 mg capsule,delayed 40 mg PO DAILY PRN heartburn or 05/22/22 release abdominal pain 30 days #30 caps diphenhydramine HCl 25 mg capsule 50 mg PO TID PRN allergic reaction 06/10/22 (Benadryl) #30 caps prednisone 20 mg tablet 40 mg PO DAILY #10 tabs 06/10/22 Allergies Allergy/AdvReac Type Severity Reaction Status Date / Time naproxen [NAPROXEN] Allergy Unknown RASH, Verified 05/22/22 09:12 SWOLLEN FEET, rash nitrofurantoin Allergy Unknown RASH, rash Verified 05/22/22 09:12 [NITROFURANTOIN] + nausea Review of Systems Review of Systems: Yes all other systems are reviewed and are negative PMF[facility] Past Medical History Medical History Allergic rhinitis NILDA positive GERD without esophagitis Migraine Obesity (BMI 30-39.9) Patellofemoral arthralgia of left knee Vitamin D deficiency Surgical History History of excision of mass Hx of carpal tunnel repair Pilar cyst Family History Family History Father HTN (hypertension) Mother HTN (hypertension) Brother No problems noted. Brother No problems noted. Brother No problems noted. Sister No problems noted. Social History Social History Housing: House Alcohol intake: current Alcohol intake frequency: holidays/special occasions only Patient Tobacco Use Status: Former Tobacco user Second Hand Smoke Exposure: Yes Advance Directives: No Advance Directives Information Provided: Yes service: No Current occupational status: employed Cognitive needs: No Hearing needs: No Vision needs: Yes Physical Exam ED Vital Signs: Vital Signs - 24 hr 06/10/22 00:57 Pulse Rate 66 Respiratory Rate 16 Blood Pressure 128/78 Pulse Oximetry 99 Oxygen Delivery Method Room Air BMI result Body Mass Index 25.0 Appearance: Alert. Oriented X3. No acute distress. ENT: Pharynx normal. Oral Mucosa moist lips and tongue normal Neck: Normal inspection. Neck supple. CVS: Normal heart rate and rhythm. Pulses normal. Respiratory: No respiratory distress. Equal air entry bilateral, no wheezing/rales/rhonchi Abdomen: Soft and nontender. Bowel sounds are present, Skin: Skin warm and dry. Normal skin color. Normal skin turgor. Some erythema of the of cheeks and forearm no hives noticed Extremities: No lower extremity edema. No calf tenderness Neuro: Oriented X 3. Medications Administered Discontinued Medications Generic Name Dose Route Start Last Admin Trade Name Freq PRN Reason Stop Dose Admin Acetaminophen 650 mg 06/10/22 02:06 06/10/22 02:08 Acetaminophen 325 Mg Tablet PO 06/10/22 02:07 650 mg ONCE ONE Administration Diphenhydramine HCl 50 mg 06/10/22 01:45 06/10/22 02:00 Diphenhydramine Hcl 25 Mg Capsule PO 06/10/22 01:46 50 mg ONCE ONE Administration Prednisone 40 mg 06/10/22 01:45 06/10/22 02:00 Prednisone 20 Mg Tablet PO 06/10/22 01:46 40 mg ONCE ONE Administration Medical Decision Making Medical Decision Making [facility] Narrative: Patient with nonspecific allergic reaction to some external allergen will give prednisone along with Benadryl Discharge Plan Discharge Clinical Impression: Allergic reaction Patient Disposition: Home, Self-Care Instructions: General Allergic Reaction (ED) Additional Instructions: Take medications prescribed Follow-up with PCP if not better for further testing Prescriptions: New prednisone 20 mg tablet 40 mg PO DAILY Qty: 10 0RF diphenhydramine HCl [Benadryl] 25 mg capsule 50 mg PO TID PRN (Reason: allergic reaction) Qty: 30 0RF No Action mometasone 0.1 % cream 1 appl topical DAILY PRN (Reason: skin irritation/rash) Qty: 45 1RF ibuprofen 400 mg tablet 400 mg PO Q6H PRN (Reason: pain) Qty: 20 0RF lidocaine [Aspercreme (lidocaine)] 4 % adhesive patch,medicated 1 patch topical DAILY PRN (Reason: pain) Qty: 15 3RF albuterol sulfate [Ventolin HFA] 90 mcg/actuation HFA aerosol inhaler 2 puff inhalation Q6H PRN (Reason: shortness of breath or wheezing) Qty: 18 2RF cholecalciferol (vitamin D3) 1,250 mcg (50,000 unit) capsule 1,250 mcg PO QWEEK 90 Days Qty: 13 3RF fluticasone propionate 50 mcg/actuation spray,suspension 2 spray intranasal DAILY PRN (Reason: allergy symptoms) 30 Days Qty: 16 12RF Rx Instructions: administer into each nostril omeprazole 40 mg capsule,delayed release(DR/EC) 40 mg PO DAILY PRN (Reason: heartburn or abdominal pain) 30 Days Qty: 30 12RF Stand Alone Forms: Work/School Release Interventions: ED Discharge Assessment Last Done: 06/10/22 02:16 Discharge Date/Time: 06/10/22 02:17
[2022-06-10] MEDS: diphenhydrAMINE HCL 25 MG CAPSULE 50 MG PO (02:00)
[2022-06-10] MEDS: predniSONE 20 MG TABLET 40 MG PO (02:00)
[2022-06-10] MEDS: Acetaminophen 325 MG TABLET 650 MG PO (02:08)
== END 2022-06-10 02:17 | disposition home or self-care (01) ==
PROVIDERS: Emergency Provider Internal Medicine; PCP Internal Medicine
DX: T78.40XA Allergy, unspecified, initial encounter (principal); X58.XXXA Exposure to other specified factors, initial encounter
CPT/HCPCS: 99283

== ENCOUNTER 2022-09-17 14:16 | Outpatient (REF) | payer OTHER, SELFPAY ==
[2022-09-18 02:38] LABS: CT PCR NOT DETECTED (Not Detect.); NG PCR NOT DETECTED (Not Detect.)
[2022-09-18 08:56] LABS: BV Int Neg Control Negative (Negative); BV Int Pos Control Positive (Positive)
[2022-09-20 01:04] LABS: HPV mRNA E6/E7 rflx Not Detected (Not Detected)
== END 2022-09-17 14:17 | disposition home or self-care (01) ==
LOC: HO.LNP 14:16
PROVIDERS: PCP Internal Medicine; Visit Provider Advanced Practice Midwife
DX: Z01.419 Encounter for gynecological examination (general) (routine) without abnormal findings (principal); Z20.2 Contact with and (suspected) exposure to infections with a predominantly sexual mode of transmission; Z79.899 Other long term (current) drug therapy
CPT/HCPCS: 0353U; 81025; 87480; 87510; 87624; 87660; 88142

== ENCOUNTER 2022-09-29 18:02 | Emergency (ER) | payer OTHER, SELFPAY ==
--- NOTE | ~2022-09-29 | XR_ITS ---
EXAMINATION: XR CHEST CLINICAL INFORMATION: Cough. COMPARISON: Chest radiographs dated 10/06/2020. TECHNIQUE: Frontal view of the chest was obtained. FINDINGS: No significant abnormality is noted involving the heart, lungs, mediastinum, bony thorax or soft tissues. XR/XR chest 1V IMPRESSION: Unremarkable examination.
--- NOTE | ~2022-09-29 | CT_ITS ---
EXAMINATION: CT HEAD WITHOUT CONTRAST CLINICAL INFORMATION: Dizziness and headache. Hypertension. COMPARISON: CT head 04/05/2015. TECHNIQUE: Contiguous axial imaging was performed from the skull base to vertex without intravenous administration of contrast. This CT examination was performed using dose optimization techniques as appropriate, variously including the following: *Automated exposure control *Adjustment of mA and/or kV according to patient size (this includes techniques or standardized protocols for targeted exams where dose is matched to indication/reason for exam; i.e. extremities or head) *Use of iterative reconstruction technique DLP: 965 mGy-cm FINDINGS: Patient motion degrades image quality therefore the diagnostic accuracy of this examination is limited. There is no acute intracranial hemorrhage or abnormal extra-axial collection. No intracranial mass effect or midline shift. Lateral and third ventricles are normal. No hydroceles. Mcgarry-white matter differentiation is grossly preserved and there is no evidence of acute territorial infarct. The calvarium and skull base are intact. Mastoid air cells and middle ear cavities are well-aerated. No active paranasal sinus disease. CT/CT head/brain wo IV con IMPRESSION: Patient motion degrades image quality therefore the diagnostic accuracy of this examination is limited. Grossly no evidence of acute territorial infarct or hemorrhage.
--- NOTE | ~2022-09-29 | US_ITS ---
EXAMINATION: US ABDOMEN LIMITED CLINICAL INFORMATION: Right upper quadrant pain. COMPARISON: None available. TECHNIQUE: Real-time imaging of the right upper quadrant abdominal viscera. FINDINGS: PANCREAS: Normal. LIVER: Normal. The liver is normal in size. The liver contour is normal. Parenchymal echogenicity is normal. No focal hepatic lesion. There is no intrahepatic biliary duct dilatation seen. GALLBLADDER: Normal. The gallbladder is physiologically distended without evidence of stones, sludge, polyps, wall thickening or pericholecystic fluid. COMMON BILE DUCT: Normal in caliber measuring 0.2 cm in diameter. RIGHT KIDNEY: Normal. No hydronephrosis. No renal calculi or focal parenchymal lesions. The kidney measures 12.1 cm in maximum dimension. FREE FLUID: None. US/US abdomen limited IMPRESSION: Negative exam. A cause for the patient's abdominal pain has not been found.
[2022-09-29 18:39] VITALS: BP 177/111; PULSE 79; RESP 18; TEMP 36.6; O2SAT 100; BMI 30.6
--- NOTE | 2022-09-29 18:39 | ED_ITS ---
HPI - Abdominal Pain General Chief Complaint: General Medical Stated Complaint: sharp abd pain, cough Time Seen by Provider: 09/29/22 19:47 Source: patient, RN notes reviewed and old records reviewed Mode of arrival: ambulatory Limitations: no limitations History of Present Illness HPI narrative: 32-year-old female presents for evaluation of multiple complaints. Patient reports for the last few days she has had a dry cough, she has had sharp, stabbing upper abdominal pain. She reports that she has also noticed that she is losing her voice. Denies any significant shortness of breath No fevers or chills Patient reports some nausea without vomiting. Denies any history abdominal surgeries Currently her pain is a 4/10 Denies any sick contacts or recent travel Related Data Home Medications Medication Instructions Recorded Confirmed epinephrine 0.3 mg/0.3 mL IM 09/17/22 09/17/22 injection, auto-injector Previous Rx's Medication Instructions Recorded ibuprofen 400 mg tablet 400 mg PO Q6H PRN pain #20 tabs 01/01/22 mometasone 0.1 % topical cream 1 appl topical DAILY PRN skin 05/13/22 irritation/rash #45 grams Ventolin HFA 90 mcg/actuation 2 puff inhalation Q6H PRN 05/22/22 aerosol inhaler (albuterol sulfate) shortness of breath or wheezing #18 grams cholecalciferol (vitamin D3) 1,250 1,250 mcg PO QWEEK 3 months #13 05/22/22 mcg (50,000 unit) capsule caps fluticasone propionate 50 2 spray intranasal DAILY PRN 05/22/22 mcg/actuation nasal allergy symptoms 30 days #16 grams spray,suspension lidocaine 4 % topical patch 1 patch topical DAILY PRN pain #15 05/22/22 (Aspercreme (lidocaine)) ea omeprazole 40 mg capsule,delayed 40 mg PO DAILY PRN heartburn or 05/22/22 release abdominal pain 30 days #30 caps Lubricant Eye Drops 0.5 % 2 drp ophthalmic (eye) TID PRN dry 06/10/22 (carboxymethylcellulose sodium) eye(s) #15 mL diphenhydramine HCl 25 mg capsule 50 mg PO TID PRN allergic reaction 06/10/22 (Benadryl) #30 caps prednisone 20 mg tablet 40 mg PO DAILY #10 tabs 02/21/23 lidocaine 5 % topical patch 1 patch topical DAILY PRN pain #30 06/11/22 ea cetirizine 10 mg tablet 10 mg PO DAILY PRN allergy 06/18/22 symptoms 90 days #90 tabs famotidine 20 mg tablet 20 mg PO BID 15 days #30 tabs 06/18/22 montelukast 10 mg tablet 10 mg PO DAILY 30 days #30 tabs 06/18/22 vitamin with calcium 1 tab PO DAILY #90 tabs 09/17/22 no.72-iron 27 mg-folic acid 1 mg tablet ( Vitamins Plus Low Iron) benzonatate 200 mg capsule 200 mg PO TID PRN cough #20 caps 09/29/22 cefpodoxime 200 mg tablet 200 mg PO BID #10 tabs 09/29/22 Allergies Allergy/AdvReac Type Severity Reaction Status Date / Time naproxen [NAPROXEN] Allergy Unknown RASH, Verified 09/29/22 18:39 SWOLLEN FEET, rash nitrofurantoin Allergy Unknown RASH, rash Verified 09/29/22 18:39 [NITROFURANTOIN] + nausea Review of Systems Constitutional: Reports as per HPI, Denies chills, Denies fatigue, Denies fever(s) and Reports headache(s) Reports headache(s) and Reports hoarseness Cardiovascular: Denies chest pain and Denies dyspnea Respiratory: Reports cough and Denies dyspnea Gastrointestinal: Reports abdominal pain, Denies constipation, Reports nausea and Denies vomiting Genitourinary: Denies dysuria Reports headache(s) and Denies focal weakness Endocrine: Denies fatigue PMFSH Past Medical History Medical History Allergic rhinitis NILDA positive GERD without esophagitis Migraine Obesity (BMI 30-39.9) Patellofemoral arthralgia of left knee Vitamin D deficiency Surgical History History of excision of mass Hx of carpal tunnel repair Pilar cyst Family History Family History Father HTN (hypertension) Mother HTN (hypertension) Brother No problems noted. Brother No problems noted. Brother No problems noted. Sister No problems noted. Social History Social History Housing: House Alcohol intake: current Alcohol intake frequency: holidays/special occasions only Patient Tobacco Use Status: Former Tobacco user Smoked in Last 30 Days: No e-Cigarette/Vaping Use: Never Used Second Hand Smoke Exposure: Yes Use of substances other than those prescribed or required for medical reasons: No Advance Directives: No Advance Directives Information Provided: No service: No Current occupational status: employed Cognitive needs: No Hearing needs: No Vision needs: Yes Physical Exam ED Vital Signs: Vital Signs - 24 hr 09/29/22 18:39 09/29/22 19:59 09/29/22 22:00 Temperature 97.8 F 98.1 F 98.3 F Pulse Rate 79 70 79 Respiratory Rate 18 14 16 Blood Pressure 177/111 H 173/105 H 168/99 H Pulse Oximetry 100 99 98 Oxygen Delivery Method Room Air Room Air Room Air BMI result Body Mass Index 30.6 Const General: healthy appearing, comfortable, no acute distress, alert and awake Nutritional Appearance: well nourished Orientation/consciousness: patient oriented x3 HENMT Head: Yes normocephalic and Yes atraumatic Eyes Eyelids: Yes eyelids normal Conjunctivae: conjunctivae normal Sclerae: sclerae normal Corneas: corneas normal Pupils: Equal, round and reactive pupils present EOM: EOMs intact bilaterally Neck Neck: Yes full ROM Resp Effort & Inspection: normal respiratory effort, able to speak in complete sentences, no audible wheezes and not labored Auscultation: clear to auscultation bilaterally Cardio Rate: regular rate Rhythm: regular rhythm GI Inspection: No distended Palpation (GI): Soft to palpation, not firm, Tenderness to palpation present (GI) (Tenderness in the epigastric region), no guarding and not rigid Auscultation: normoactive bowel sounds Skin General skin exam: no rashes or lesions noted and elasticity normal Neuro General: patient oriented x3 Cranial nerves: Yes Equal, round and reactive pupils present and Yes Bilaterally intact EOM present Cognition (Neuro): normal cognition Extrem Other: Moving all extremities well without any obvious deformities Course Course Course Narrative: RME: 32yo F w/PMHx asthma, GERD, migraines, c/o intermittent ARELLANO and neck pain x3 days with sharp epigastric abdominal pain and dry cough. Also reports dry throat and dizziness. denies CP/SOB or taking AC HTNsive 176/119, repeat 177/111 in contralateral arm, denies hx HTN EKG, labs, CXR, head CT ordered Full HPI, ROS and PE to be performed by primary ED provider. Reevaluation(s) Reevaluation #1: Patient workup largely unremarkable. The workup was discussed with the patient. She does however have a mild UTI. She will be discharged test some Perles for her cough. She is advised to follow-up with her PCP for her high blood pressure. Time: 22:16 Medical Decision Making Medical Decision Making [facility] Narrative: 32-year-old female presents for evaluation of multiple complaints. She complains of upper abdominal pain, hoarse voice and dry cough. Her physical exam is reassuring. She is tender in the epigastric region without guarding. Lungs are clear to auscultation. Patient's labs are significant for a very mild leukocytosis. No other significant lab abnormalities. Chest x-ray is clear. Will get an ultrasound of gallbladder. Patient had a CT scan of brain ordered by triage provider which did not show any concerning abnormalities. The patient a negative neurologic exam. At this time, viral etiology of her symptoms most likely. Differential Diagnosis Viral syndrome Bronchitis Pharyngitis Cholelithiasis Lab Data [facility] Lab Attestation statement: I reviewed the patient's lab results. 09/29/22 19:10 09/29/22 19:10 Labs: Lab Results 09/29/22 09/29/22 09/29/22 Range/Units 19:10 19:10 19:10 WBC 11.5 H (4.8-10.8) X10*3/uL RBC 5.00 (4.20-5.50) X10*6/uL Hgb 13.5 (12.0-16.0) g/dl Hct 43.1 (37.0-47.0) % MCV 86.2 (80.0-98.0) fL MCH 27.0 (27.0-33.0) pg MCHC 31.3 (31.0-35.0) g/dl RDW 15.0 (11.0-16.0) % Plt Count 358 (160-400) X10*3/uL MPV 9.8 (9.4-12.3) fL Immature Gran % (Auto) 0.2 (0.0-0.4) % Neut % (Auto) 64.1 (45-73) % Lymph % (Auto) 26.0 (20-40) % [place] % (Auto) 7.0 (2-11) % Eos % (Auto) 2.2 (0-4) % Baso % (Auto) 0.5 (0-2) % Lymph # (Auto) 3.0 (1.2-4.9) X10*3/uL [place] # (Auto) 0.8 (0.1-1.2) X10*3/uL Eos # (Auto) 0.3 (0.0-0.4) X10*3/uL Baso # (Auto) 0.1 (0.0-0.2) X10*3/uL Abs Immat Gran (auto) 0.02 (0.00-0.03) X10*3/uL Absolute Neuts (auto) 7.4 (2.0-8.3) x10*3/uL Absolute Nucleated RBC 0.000 (0.0-0.012) X10*3/uL Nucleated RBC % (auto) 0.0 (0.0-0.2) /100WBC Sodium 142 (135-145) mmol/L Potassium 4.4 (3.3-5.1) mmol/L Chloride 109 H (96-108) mmol/L Carbon Dioxide 25 (22-29) mmol/L Anion Gap 12 (12-20) BUN 11 (9-16) mg/dL Creatinine 0.73 (0.5-1.4) mg/dL Estim Creat Clear Calc 106.5 Estimated GFR > 60 Random Glucose 89 (60-115) mg/dL Calcium 9.5 (8.4-10.2) mg/dL Magnesium 1.9 (1.6-2.6) mg/dL Total Bilirubin 1.0 (0.0-1.0) mg/dL Direct Bilirubin 0.3 (0.0-0.5) mg/dL AST 18 (5-31) U/L ALT 19 (0-31) U/L Alkaline Phosphatase 91 (39-117) U/L Total Protein 6.9 (6.5-8.0) g/dL Albumin 3.9 (3.5-5.0) g/dL Urine Color Urine Appearance Urine pH (5.0-9.0) Ur Specific Plessis (1.005-1.025) Urine Protein (Neg-Trace) mg/dL Urine Glucose (UA) (Negative) mg/dL Urine Ketones (Negative) mg/dL Urine Blood (Negative) Urine Nitrite (Negative) Ur Leukocyte Esterase (Negative) Urine RBC (0-2) /HPF Urine WBC (0-5) /HPF Ur Squamous Epith Cells (0-2) /HPF Urine Bacteria (None Seen) Hyaline Casts (0-2) /LPF COVID-19 (CHIVO) (Negative) COVID-19 Clin Com Influenza Type A (DALTON) Negative (Negative) Influenza Type B (DALTON) Negative (Negative) Influenza A & B Note See Note S. pyogenes GrpA DALTON (Negative) 09/29/22 09/29/22 09/29/22 Range/Units 19:10 19:10 20:49 WBC (4.8-10.8) X10*3/uL RBC (4.20-5.50) X10*6/uL Hgb (12.0-16.0) g/dl Hct (37.0-47.0) % MCV (80.0-98.0) fL MCH (27.0-33.0) pg MCHC (31.0-35.0) g/dl RDW (11.0-16.0) % Plt Count (160-400) X10*3/uL MPV (9.4-12.3) fL Immature Gran % (Auto) (0.0-0.4) % Neut % (Auto) (45-73) % Lymph % (Auto) (20-40) % [place] % (Auto) (2-11) % Eos % (Auto) (0-4) % Baso % (Auto) (0-2) % Lymph # (Auto) (1.2-4.9) X10*3/uL [place] # (Auto) (0.1-1.2) X10*3/uL Eos # (Auto) (0.0-0.4) X10*3/uL Baso # (Auto) (0.0-0.2) X10*3/uL Abs Immat Gran (auto) (0.00-0.03) X10*3/uL Absolute Neuts (auto) (2.0-8.3) x10*3/uL Absolute Nucleated RBC (0.0-0.012) X10*3/uL Nucleated RBC % (auto) (0.0-0.2) /100WBC Sodium (135-145) mmol/L Potassium (3.3-5.1) mmol/L Chloride (96-108) mmol/L Carbon Dioxide (22-29) mmol/L Anion Gap (12-20) BUN (9-16) mg/dL Creatinine (0.5-1.4) mg/dL Estim Creat Clear Calc Estimated GFR Random Glucose (60-115) mg/dL Calcium (8.4-10.2) mg/dL Magnesium (1.6-2.6) mg/dL Total Bilirubin (0.0-1.0) mg/dL Direct Bilirubin (0.0-0.5) mg/dL AST (5-31) U/L ALT (0-31) U/L Alkaline Phosphatase (39-117) U/L Total Protein (6.5-8.0) g/dL Albumin (3.5-5.0) g/dL Urine Color Yellow Urine Appearance Clear Urine pH 5.5 (5.0-9.0) Ur Specific Plessis 1.020 (1.005-1.025) Urine Protein Negative (Neg-Trace) mg/dL Urine Glucose (UA) Negative (Negative) mg/dL Urine Ketones Negative (Negative) mg/dL Urine Blood Small (1+) H (Negative) Urine Nitrite Negative (Negative) Ur Leukocyte Esterase Trace H (Negative) Urine RBC 0-2 (0-2) /HPF Urine WBC 0-5 (0-5) /HPF Ur Squamous Epith Cells 3-5 (0-2) /HPF Urine Bacteria 1+ (None Seen) Hyaline Casts 0-2 (0-2) /LPF COVID-19 (CHIVO) Negative (Negative) COVID-19 Clin Com See Note Influenza Type A (DALTON) (Negative) Influenza Type B (DALTON) (Negative) Influenza A & B Note S. pyogenes GrpA DALTON Negative (Negative) Independent Interpretation I performed an independent interpretation of an: Plain X-Ray (Clear chest) Discharge Plan Discharge Clinical Impression: Cough, UTI (urinary tract infection) Patient Disposition: Home, Self-Care Instructions: Acute Cough (ED) Additional Instructions: Take Tessalon Perles as needed for coughing Take cefpodoxime twice daily for UTI Hydrate well Follow-up with your primary doctor Prescriptions: New benzonatate 200 mg capsule 200 mg PO TID PRN (Reason: cough) Qty: 20 0RF cefpodoxime 200 mg tablet 200 mg PO BID Qty: 10 0RF Rx Instructions: must administer with a meal/food No Action mometasone 0.1 % cream 1 appl topical DAILY PRN (Reason: skin irritation/rash) Qty: 45 1RF carboxymethylcellulose sodium [Lubricant Eye Drops] 0.5 % drops 2 drp ophthalmic (eye) TID PRN (Reason: dry eye(s)) Qty: 15 3RF lidocaine 5 % adhesive patch,medicated 1 patch topical DAILY PRN (Reason: pain) Qty: 30 3RF Rx Instructions: leave on most painful area for up to 12 hrs prednisone 20 mg tablet 40 mg PO DAILY Qty: 10 0RF diphenhydramine HCl [Benadryl] 25 mg capsule 50 mg PO TID PRN (Reason: allergic reaction) Qty: 30 0RF ibuprofen 400 mg tablet 400 mg PO Q6H PRN (Reason: pain) Qty: 20 0RF lidocaine [Aspercreme (lidocaine)] 4 % adhesive patch,medicated 1 patch topical DAILY PRN (Reason: pain) Qty: 15 3RF albuterol sulfate [Ventolin HFA] 90 mcg/actuation HFA aerosol inhaler 2 puff inhalation Q6H PRN (Reason: shortness of breath or wheezing) Qty: 18 2RF cholecalciferol (vitamin D3) 1,250 mcg (50,000 unit) capsule 1,250 mcg PO QWEEK 90 Days Qty: 13 3RF fluticasone propionate 50 mcg/actuation spray,suspension 2 spray intranasal DAILY PRN (Reason: allergy symptoms) 30 Days Qty: 16 12RF Rx Instructions: administer into each nostril omeprazole 40 mg capsule,delayed release(DR/EC) 40 mg PO DAILY PRN (Reason: heartburn or abdominal pain) 30 Days Qty: 30 12RF cetirizine 10 mg tablet 10 mg PO DAILY PRN (Reason: allergy symptoms) 90 Days Qty: 90 3RF famotidine 20 mg tablet 20 mg PO BID 15 Days Qty: 30 0RF montelukast 10 mg tablet 10 mg PO DAILY 30 Days Qty: 30 3RF epinephrine 0.3 mg/0.3 mL auto-injector IM Vitamin Plus Low Iron 27 mg iron- 1 mg tablet 1 tab PO DAILY Qty: 90 2RF Stand Alone Forms: Work/School Release
[2022-09-29 19:17] LABS: MANUAL DIFF FLAG NO
[2022-09-29 19:20] LABS: Basophils Absolute Auto 0.1 X10*3/uL (0.0-0.2); Basophils Percent Auto 0.5 % (0-2); Eosinophils Absolute Auto 0.3 X10*3/uL (0.0-0.4); Eosinophils Percent Auto 2.2 % (0-4); Hematocrit 43.1 % (37.0-47.0); Hemoglobin 13.5 g/dl (12.0-16.0); Imm Gran Abs Auto 0.02 X10*3/uL (0.00-0.03); Imm Gran Pct Auto 0.2 % (0.0-0.4); Mean Corpuscular HGB Conc 31.3 g/dl (31.0-35.0); Mean Corpuscular Volume 86.2 fL (80.0-98.0); Mean Platelet Volume 9.8 fL (9.4-12.3); Monocytes Absolute Auto 0.8 X10*3/uL (0.1-1.2); Neutrophils Absolute Auto 7.4 x10*3/uL (2.0-8.3); Neutrophils Percent Auto 64.1 % (45-73); Platelet Count 358 X10*3/uL (160-400); White Blood Count 11.5 X10*3/uL (4.8-10.8)
[2022-09-29 19:31] LABS: IDNOW Serial# 08D9AD1C; Strep A Nucleic Acid Negative (Negative)
[2022-09-29 19:40] LABS: Alanine Aminotransferase 19 U/L (0-31); Albumin Level 3.9 g/dL (3.5-5.0); Alkaline Phosphatase 91 U/L (39-117); Anion Gap 12 (12-20); Aspartate Amino Transferase 18 U/L (5-31); Bilirubin Direct 0.3 mg/dL (0.0-0.5); Blood Urea Nitrogen 11 mg/dL (9-16); Calcium 9.5 mg/dL (8.4-10.2); Carbon Dioxide 25 mmol/L (22-29); Chloride 109 mmol/L (96-108); Creatinine Clr Calc Pharmacy 106.5; Estimated Glomerular Filt Rate > 60; Glucose Random 89 mg/dL (60-115); Magnesium 1.9 mg/dL (1.6-2.6); Potassium 4.4 mmol/L (3.3-5.1); Sodium 142 mmol/L (135-145); Total Protein 6.9 g/dL (6.5-8.0)
[2022-09-29 19:41] LABS: COVID-19 Test Negative (Negative); IDNOW Serial# 6674DD1D
[2022-09-29 19:42] LABS: IDNOW Serial# BCCEAD1C; Influenza A Negative (Negative); Influenza B2 Negative (Negative)
[2022-09-29 19:59] VITALS: BP 173/105; PULSE 70; RESP 14; TEMP 36.7; O2SAT 99
--- NOTE | 2022-09-29 20:40 | PC.NURSE ---
Pt ca&ox3, no signs of distress. Pt reports 10/10 posterior mid neck pain for the past 2 days, cough, and mid abdm pain. Wctm.
--- NOTE | 2022-09-29 20:55 | PC.NURSE ---
Pt ambulated to the rest room with a steady gait. Clean catch collected and sent.
[2022-09-29 21:05] LABS: Appearance Urine Clear; Color Urine Yellow; Glucose Urine UA Negative (Negative); Leukocyte Esterase Urine Trace (Negative); Nitrite Urine Negative (Negative); PH 5.5 (5.0-9.0); UMIC TRIGGER UACC YES; Urine Blood Small (1+) (Negative); Urine Ketones Negative (Negative); Urine Protein Negative (Neg-Trace)
[2022-09-29 21:18] LABS: Bacteria Urine 1+ (None Seen); Hyaline Casts Urine 0-2 /LPF (0-2); RBC Urine 0-2 /HPF (0-2); WBC Urine 0-5 /HPF (0-5)
[2022-09-29 22:00] VITALS: BP 168/99; PULSE 79; RESP 16; TEMP 36.8; O2SAT 98
== END 2022-09-29 22:30 | disposition home or self-care (01) ==
PROVIDERS: Physician Assistant; Emergency Provider Emergency Medicine Emergency Medical Services
DX: R05.9 Cough, unspecified (principal); R10.10 Upper abdominal pain, unspecified; R51.9 Headache, unspecified; R49.0 Dysphonia; Z20.822 Contact with and (suspected) exposure to COVID-19
CPT/HCPCS: 70450; 71045; 76705; 80048; 80076; 81001; 81003; 83735; 85025; 87502; 87635; 87651; 99284

== ENCOUNTER 2022-11-17 17:00 | Outpatient (AMB) | payer OTHER, SELFPAY ==
[2022-11-17 17:01] VITALS: BP 116/80; PULSE 76; O2SAT 99; BMI 31.7
--- NOTE | 2022-11-17 17:01 | MHC.PC.OV ---
Vital Signs 11/17/22 17:01 Height 5 ft 2 in Weight 173 lb 4 oz BMI 31.7 BP 116/80 Blood Pressure Location Lt brachial Position Sitting Pulse 76 Pulse Source Pulse Oximeter Pulse Oximetry (%) 99 Oxygen Delivery Method Room Air Intake Visit Reasons: asthma, GERD Construction Consultant Required: No Accompanied by: Self / Same As Patient Allergies naproxen [NAPROXEN] Allergy (Unknown, Verified 11/17/22 17:26) RASH, SWOLLEN FEET, rash nitrofurantoin [NITROFURANTOIN] Allergy (Unknown, Verified 11/17/22 17:26) RASH, rash + nausea Medication List - Last Reconciled 11/17/22 by Nico Riley MD cetirizine 10 mg PO DAILY PRN 90 days cholecalciferol (vitamin D3) 1,250 mcg PO QWEEK 3 months cyclobenzaprine 5 mg PO BEDTIME PRN diclofenac sodium 1% (Arthritis Pain (diclofenac)) 2 grams topical QID PRN diphenhydramine HCl (Benadryl) 50 mg (2 x 25 mg) PO TID PRN epinephrine IM fluticasone propionate 50 mcg/actuation 2 sprays intranasal DAILY PRN 30 days ibuprofen 400 mg PO Q6H PRN lidocaine 4% (Aspercreme (lidocaine)) 1 patch topical DAILY PRN lidocaine 5% 1 patch topical DAILY PRN Lubricant Eye Drops 0.5% (carboxymethylcellulose sodium) 2 drps ophthalmic (eye) TID PRN NS mometasone 0.1% 1 appl topical DAILY PRN montelukast 10 mg PO DAILY 30 days omeprazole 40 mg PO DAILY PRN 30 days PNV,calcium 19-crdf-ackem acid 27 mg iron- 1 mg ( Vitamins Plus Low Iron) 1 tab PO DAILY Ventolin HFA 90 mcg/actuation (albuterol sulfate) 2 puffs inhalation Q6H PRN NS Tobacco use date assessed: 11/17/22 Dental Screening Dental Screen Date: 11/17/22 Did you have a dental visit in the last 12 months?: Yes Did you have a dental problem in the last 6 months where you did not have access to dental care?: No Was dental information given to patient?: Patient has dentist HPI asthma, GERD HPI Details Patient comes in today for her follow up visit She went to the ER last month for increased abdominal pain and multiple non-specific complaints Work ups done in the ER came out mostly normal except for findings suggestive of a UTI She was started on some Abx empirically and states that her symptoms gradually resolved She came in for follow up a week later and was complaining of increasing neck pain at the time and she was subsequently referred to physical therapy for further management States that she has been going to PT for a couple of weeks now for her neck pain and that the treatments she has been receiving has been helping with her neck pain a lot States that she feels okay otherwise Denies any headaches or dizziness Denies any chest pains, no SOB - asthma has been well-controlled lately No nausea/vomiting, no abdominal pain No change in bowel habits noted [facility] Medical History Allergic rhinitis NILDA positive GERD without esophagitis Migraine Obesity (BMI 30-39.9) Patellofemoral arthralgia of left knee Vitamin D deficiency Surgical History History of excision of mass Hx of carpal tunnel repair Pilar cyst Family History Father HTN (hypertension) Mother HTN (hypertension) Brother No problems noted. Brother No problems noted. Brother No problems noted. Sister No problems noted. Social History Housing: House Alcohol intake: current Alcohol intake frequency: holidays/special occasions only Patient Tobacco Use Status: Former Tobacco user e-Cigarette/Vaping Use: Never Used Second Hand Smoke Exposure: Yes service: No Current occupational status: employed Cognitive needs: No Hearing needs: No Vision needs: Yes Female Reproductive History Menstrual Age of Menarche: 18 Questionnaire PHQ-9 Over the last 2 weeks, how often have you been bothered by any of the following problems? 1. Little interest or pleasure in doing things: not at all 2. Feeling down, depressed, or hopeless: not at all 3. Trouble falling or staying asleep, or sleeping too much: not at all 4. Feeling tired or having little energy: not at all 5. Poor appetite or overeating: not at all 6. Feeling bad about yourself - or that you are a failure or have let yourself or your family down: not at all 7. Trouble concentrating on things, such as reading the newspaper or watching television: not at all 8. Moving or speaking so slowly that other people could have noticed. Or the opposite - being so fidgety or restless that you have been moving around a lot more than usual: not at all 9. Thoughts that you would be better off or of hurting yourself in some way: not at all Total score: 0 Depression Screening Interpretation: Negative 08254 - PHQ-9 Billing: Yes Source: Developed by Drs. Frederic Mandel, Eun Kilpatrick, Sherman Espinosa and colleagues, with an educational zev from [employer]. Thrive Questionnaire Date Thrive assessed: 11/17/22 I am a: Patient What is your living situation today?: I have a steady place to live Within the past 12 months, did the food you bought not last and you didn't have the money to get more?: Never true Within the past 12 months, did you worry whether your food would run out before you got money to buy more?: Never true Do you have trouble paying for medicines?: No Do you have trouble getting transportation to medical appointments?: No Do you have trouble paying your heating and electricity bill?: No Do you have trouble taking care of your child, family member or friend?: No Do you have trouble with day-to-day activities such as bathing, preparing meals, shopping, managing finances, etc.?: No Are you currently unemployed and looking for a job?: No Are you interested in more education?: No Please select the resources that you would like help with: None Currently or been in a relationship where the following occur: no concerns reported AUDIT C Alcohol Use Questionnaire (AUDIT-C) 1. How often do you have a drink containing alcohol?: Never 3. How often do you have six or more drinks on one occasion?: Never Total Score: 0 Score Reviewed/Action Taken: Yes MULU-7 AMB Questionnaire MULU-7 Date MULU - 7 assessed: 11/17/22 Feeling nervous, anxious, or on edge: 0 = Not at all Not being able to stop or control worryin = Not at all Worrying too much about different things: 0 = Not at all Trouble relaxin = Not at all Being so restless that it is hard to sit still: 0 = Not at all Becoming easily annoyed or irritable: 0 = Not at all Feeling afraid as if something awful might happen: 0 = Not at all Total MULU-7 score (0-4 normal; 5-9 mild; 10-14 moderate; 15-21 severe): 0 Source: Developed by Drs. Frederic Manedl, Eun Kilpatrick, Sherman Espinosa and colleagues, with an educational zev from [employer]. Review of Systems Const Denies fatigue, Denies fever(s) and Denies headache(s) ENT Denies dysphagia, Denies dizziness, Denies otalgia, Denies headache(s), Reports neck pain (improving), Denies odynophagia and Denies sore throat Card Denies chest pain, Denies palpitations and Denies dyspnea Resp Denies cough and Denies dyspnea GI Denies abdominal pain, Denies constipation, Denies dysphagia, Denies heartburn, Denies diarrhea, Denies nausea, Denies odynophagia and Denies vomiting Denies difficulty voiding, Denies nocturia and Denies dysuria Musc Reports back pain (over the lower back) and Reports neck pain (improving) Neuro Denies dizziness and Denies headache(s) Endo Denies fatigue and Denies palpitations Physical exam (Primary Care) Vital Signs: Last Vital Signs Pulse 76 11/17/22 17:01 BP 116/80 11/17/22 17:01 Pulse Ox 99 11/17/22 17:01 Oxygen Delivery Method Room Air 11/17/22 17:01 BMI result Body Mass Index 31.7 Tobacco/Smoking Status: Tobacco use Status Tobacco use date assessed 11/17/22 11/17/22 17:07 Patient Tobacco Use Status Former Tobacco user 11/17/22 17:07 e-Cigarette/Vaping Use Never Used 11/17/22 17:07 PHQ-9: PHQ-9 Score PHQ-9: Total score 0 11/17/22 17:38 Depression Screening Interpretation: Negative Thrive Assessment: Date of Thrive Assessment Date Thrive assessed 11/17/22 11/17/22 17:07 Currently or been in a relationship where the following occur: no concerns reported Const General: no acute distress and alert HENMT Ears: TM's normal bilaterally and EAC's normal Throat: Yes posterior oropharynx normal and Yes tonsils normal (no TP congestion) Neck Neck: Yes no lymphadenopathy and Yes supple Resp Auscultation: clear to auscultation bilaterally, no rales and no wheezes Cardio Rate: regular rate Rhythm: regular rhythm Heart sounds: no murmurs GI Palpation (GI): Soft to palpation and nontender Auscultation: normal bowel sounds Back/Spine/Pelvis Cervical Spine: cervical muscular tenderness Thoracic/Lumbar Spine: lumbar spinal tenderness (mild) Skin General skin exam: no rashes or lesions noted Extrem General: Yes no clubbing, cyanosis or edema Assessment and Plan Assessment & Plan (1) Migraine: Code(s): G43.909 - Migraine, unspecified, not intractable, without status migrainosus Qualifiers: Intractability: not intractable Migraine type: unspecified Status migrainosus presence: without status migrainosus Qualified Code(s): G43.909 - Migraine, unspecified, not intractable, without status migrainosus Plan: Stable - reinforced avoidance of migraine triggers Continue Ibuprofen 400 mg Q 6 to 8 hours PRN (2) Allergic rhinitis: Code(s): J30.9 - Allergic rhinitis, unspecified Qualifiers: Allergic rhinitis seasonality: unspecified Allergic rhinitis trigger: unspecified Qualified Code(s): J30.9 - Allergic rhinitis, unspecified Plan: Continue Cetirizine 10 mg QD PRN and Fluticasone 50 mcg nasal spray QD PRN (3) Asthma: Code(s): J45.909 - Unspecified asthma, uncomplicated Qualifiers: Asthma severity: mild Asthma persistence: intermittent Asthma complication type: uncomplicated Qualified Code(s): J45.20 - Mild intermittent asthma, uncomplicated Plan: Stable/controlled Continue Montelukast 10 mg Q PM and Ventolin HFA 2 inhalations Q 6 hours PRN (4) Vitamin D deficiency: Code(s): E55.9 - Vitamin D deficiency, unspecified Plan: Vitamin D level was still low when checked earlier this year Continue Vitamin D3 1250 mcg Q week Will have patient recheck her labs in 6 months for follow up - is instructed to get her labs done about 1 week before her next scheduled appointment (5) GERD without esophagitis: Code(s): K21.9 - Gastro-esophageal reflux disease without esophagitis Plan: Dietary restrictions reinforced Continue Omeprazole 40 mg QD - states that her symptoms are well-controlled as long as she stays on her Rx (6) Patellofemoral arthralgia of left knee: Code(s): M25.562 - Pain in left knee Plan: Continue Tramadol 50 mg TID PRN and Ibuprofen 400 mg Q 6 to 8 hours PRN for pain Follow up with orthopedics as scheduled (7) Neck pain: Code(s): M54.2 - Cervicalgia Plan: Symptoms are gradually improving with physical therapy - to continue with PT as scheduled Continue Cyclobenzaprine 5 mg Q HS PRN and Ibuprofen 400 mg Q 6 to 8 hours PRN for pain (8) Low back pain: Code(s): M54.50 - Low back pain, unspecified Qualifiers: Back pain laterality: midline Chronicity: unspecified Sciatica presence: without sciatica Qualified Code(s): M54.50 - Low back pain, unspecified Plan: Reinforced activity and weight-lifting restrictions Continue Lidocaine patches 5% QD PRN and Ibuprofen 400 mg Q 6 to 8 hours PRN for pain Consider referral to physical therapy if low back pain persists or progresses (9) Obesity (BMI 30-39.9): Code(s): E66.9 - Obesity, unspecified Plan: Reinforced diet/exercise as tolerated/lose weight Plan To return in 6 months for her next annual physical examination Orders: Orders Comprehensive [facility]. Panel Fast 05/14/23 E78.00 - Pure hypercholesterolemia, unspecified, Z00.00 - Encounter for general adult medical examination without abnormal findings Lipid Panel 05/14/23 E78.00 - Pure hypercholesterolemia, unspecified, Z00.00 - Encounter for general adult medical examination without abnormal findings TSH reflex Free T4 05/14/23 E78.00 - Pure hypercholesterolemia, unspecified, Z00.00 - Encounter for general adult medical examination without abnormal findings Vitamin D 25-OH Total 05/14/23 E55.9 - Vitamin D deficiency, unspecified, Z00.00 - Encounter for general adult medical examination without abnormal findings Complete Blood Count Auto Diff 05/14/23 J45.909 - Unspecified asthma, uncomplicated, K21.9 - Gastro-esophageal reflux disease without esophagitis, Z00.00 - Encounter for general adult medical examination without abnormal findings UA CC w/rflx Micro + Cult 05/14/23 R30.0 - Dysuria, Z00.00 - Encounter for general adult medical examination without abnormal findings Coding Level of Care Code Est Pt Level 4 (76627) Diagnoses Migraine G43.909 Intractability: not intractable Migraine type: unspecified Status migrainosus presence: without status migrainosus Allergic rhinitis J30.9 Allergic rhinitis seasonality: unspecified Allergic rhinitis trigger: unspecified Asthma J45.20 Asthma severity: mild Asthma persistence: intermittent Asthma complication type: uncomplicated Vitamin D deficiency E55.9 GERD without esophagitis K21.9 Patellofemoral arthralgia of left knee M25.562 Neck pain M54.2 Low back pain M54.50 Back pain laterality: midline Chronicity: unspecified Sciatica presence: without sciatica Obesity (BMI 30-39.9) E66.9
== END 2022-11-17 17:32 | disposition home or self-care (01) ==
PROVIDERS: PCP Internal Medicine; Visit Provider Internal Medicine
DX: G43.909 Migraine, unspecified, not intractable, without status migrainosus (principal); J45.20 Mild intermittent asthma, uncomplicated; E55.9 Vitamin D deficiency, unspecified; K21.9 Gastro-esophageal reflux disease without esophagitis; J30.9 Allergic rhinitis, unspecified; M25.562 Pain in left knee; M54.2 Cervicalgia; M54.50 Low back pain, unspecified; E66.9 Obesity, unspecified
CPT/HCPCS: 99214

== ENCOUNTER 2022-12-03 16:00 | Outpatient (RCR) | payer OTHER, SELFPAY ==
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
--- NOTE | 2023-01-27 12:15 | MHC.PT.DC ---
[facility] [place] Office [place] Office [place] Office [address] [place] [address] [facility] [phone] F: [phone] F: [phone] F: [phone] F: [phone] Physical Therapy Discharge Report Diagnosis: neck pain/cervicalgia Date of Surgery: Date of Evaluation: 11/05/22 Date of Discharge: 01/27/23 Treatments to Date: 5 Cancellations to Date: 0 No Shows to Date: 0 Discharge Status: Patient Elected to Stop Discharge Summary: Patient attended scheduled PT sessions but did not make more after her last session on 12/03/22. She was presenting with postural deficits and muscle imbalances. She is discharged from PT at this time. Electronically signed by: Viky Reina, PT, DPT Please sign and return to therapist. Thank you for your referral.
== END 2023-01-27 12:15 | disposition home or self-care (01) ==
LOC: HO.PT 16:00
PROVIDERS: PCP Internal Medicine; Visit Provider Nurse Practitioner Family
DX: M54.2 Cervicalgia (principal)
CPT/HCPCS: 97110; 97140; 97161

== ENCOUNTER 2023-05-25 17:22 | Outpatient (AMB) | payer OTHER, SELFPAY ==
--- NOTE | 2023-05-25 17:23 | A.OFFPC_ITS ---
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 Accompanied by: Self / Same As Patient Allergies naproxen [NAPROXEN] Allergy (Unknown, Verified 05/25/23 18:11) RASH, SWOLLEN FEET, rash nitrofurantoin [NITROFURANTOIN] Allergy (Unknown, Verified 05/25/23 18:11) RASH, rash + nausea Medication List - Last Reconciled 05/25/23 by Nico Riley MD cetirizine 10 mg PO DAILY PRN 90 days cholecalciferol (vitamin D3) 1,250 mcg PO QWEEK 3 months cyclobenzaprine 5 mg PO BEDTIME PRN diclofenac sodium 1% (Arthritis Pain (diclofenac)) 2 grams topical QID PRN diphenhydramine HCl (Benadryl) 50 mg (2 x 25 mg) PO TID PRN epinephrine IM fluticasone propionate 50 mcg/actuation 2 sprays intranasal DAILY PRN 30 days ibuprofen 400 mg PO Q6H PRN lidocaine 4% (Aspercreme (lidocaine)) 1 patch topical DAILY PRN lidocaine 5% 1 patch topical DAILY PRN Lubricant Eye Drops 0.5% (carboxymethylcellulose sodium) 2 drps ophthalmic (eye) TID PRN NS mometasone 0.1% 1 appl topical DAILY PRN montelukast 10 mg PO DAILY 30 days omeprazole 40 mg PO DAILY PRN 30 days PNV,calcium 94-[id number]-[id number] acid 27 mg iron- 1 mg ( Vitamins Plus Low Iron) 1 tab PO DAILY Ventolin HFA 90 mcg/actuation (albuterol sulfate) 2 puffs inhalation Q6H PRN NS Tobacco use date assessed: 05/25/23 Dental Screening Dental Screen Date: 05/25/23 Did you have a dental visit in the last 12 months?: Yes Did you have a dental problem in the last 6 months where you did not have access to dental care?: No Was dental information given to patient?: Patient has dentist HPI pe HPI Details Patient comes in today for her annual physical examination States that she currently has a small and painless nodule on the dorsum of her left hand that has been present for the past 1 month States that she feels okay otherwise She denies any increased headaches or dizziness - states that her migraine headaches have been well-controlled lately Denies any chest pains, no shortness of breath - her asthma has also been well- controlled for the past few months No nausea/vomiting, no abdominal pain No change in bowel habits noted She denies any acute urinary symptoms States that her low back pain and joint pains have been mostly manageable lately Needs a few of her Rx refilled She was not able to get her previously ordered labs prior to her visit today She is currently up-to-date with her annual pap smear and gynecology exam - had them last done in September 2022 and she is scheduled for her next gynecology appointment in September 2023 [facility] Medical History (Updated 05/26/23 @ 03:07 by Nico Riley MD) Asthma Obesity (BMI 30-39.9) GERD without esophagitis Vitamin D deficiency Allergic rhinitis Migraine NILDA positive Patellofemoral arthralgia of left knee Surgical History History of excision of mass Hx of carpal tunnel repair Pilar cyst Family History Father HTN (hypertension) Mother HTN (hypertension) Brother No problems noted. Brother No problems noted. Brother No problems noted. Sister No problems noted. Social History Housing: House Alcohol intake: current Alcohol intake frequency: holidays/special occasions only Patient Tobacco Use Status: Former Tobacco user e-Cigarette/Vaping Use: Never Used Second Hand Smoke Exposure: Yes service: No Current occupational status: employed Cognitive needs: No Hearing needs: No Vision needs: Yes Female Reproductive History Menstrual Age of Menarche: 18 Questionnaire PHQ-9 Over the last 2 weeks, how often have you been bothered by any of the following problems? 1. Little interest or pleasure in doing things: not at all 2. Feeling down, depressed, or hopeless: not at all 3. Trouble falling or staying asleep, or sleeping too much: not at all 4. Feeling tired or having little energy: not at all 5. Poor appetite or overeating: not at all 6. Feeling bad about yourself - or that you are a failure or have let yourself or your family down: not at all 7. Trouble concentrating on things, such as reading the newspaper or watching television: not at all 8. Moving or speaking so slowly that other people could have noticed. Or the opposite - being so fidgety or restless that you have been moving around a lot more than usual: not at all 9. Thoughts that you would be better off or of hurting yourself in some way: not at all Total score: 0 Depression Screening Interpretation: Negative Depression Screening Done: Yes 32245 - PHQ-9 Billing: Yes Source: Developed by Drs. Frederic Mandel, Eun Kilpatrick, Sherman Espinosa and colleagues, with an educational zev from [employer]. Thrive Questionnaire Date Thrive assessed: 05/25/23 I am a: Patient What is your living situation today?: I have a steady place to live Within the past 12 months, did the food you bought not last and you didn't have the money to get more?: Never true Within the past 12 months, did you worry whether your food would run out before you got money to buy more?: Never true Do you have trouble paying for medicines?: No Do you have trouble getting transportation to medical appointments?: No Do you have trouble paying your heating and electricity bill?: No Do you have trouble taking care of your child, family member or friend?: No Do you have trouble with day-to-day activities such as bathing, preparing meals, shopping, managing finances, etc.?: No Are you currently unemployed and looking for a job?: No Are you interested in more education?: No Please select the resources that you would like help with: None Currently or been in a relationship where the following occur: no concerns reported THRIVE Score: 0 AUDIT C Alcohol Use Questionnaire (AUDIT-C) 1. How often do you have a drink containing alcohol?: Never 3. How often do you have six or more drinks on one occasion?: Never Total Score: 0 Score Reviewed/Action Taken: Yes MULU-7 AMB Questionnaire MULU-7 Date MULU - 7 assessed: 05/25/23 Feeling nervous, anxious, or on edge: 0 = Not at all Not being able to stop or control worryin = Not at all Worrying too much about different things: 0 = Not at all Trouble relaxin = Not at all Being so restless that it is hard to sit still: 0 = Not at all Becoming easily annoyed or irritable: 0 = Not at all Feeling afraid as if something awful might happen: 0 = Not at all Total MULU-7 score (0-4 normal; 5-9 mild; 10-14 moderate; 15-21 severe): 0 Source: Developed by Drs. Frederic Mandel, Eun Kilpatrick, Sherman Espinosa and colleagues, with an educational zev from [employer]. Review of Systems Const Denies chills, Denies fatigue, Denies fever(s), Denies headache(s) and Denies malaise Eyes Denies blurry vision, Denies change in vision, Denies irritation and Denies itchy eyes ENT Denies dysphagia, Denies dizziness, Denies otalgia, Denies headache(s), Denies nasal congestion, Denies neck pain, Denies odynophagia, Denies sinus pain and Denies sore throat Card Denies chest pain, Denies rapid heart rate, Denies irregular heart rhythm, Denies palpitations and Denies dyspnea Resp Denies chest congestion, Denies cough, Denies dyspnea and Denies wheezing GI Denies abdominal pain, Denies bloating, Denies constipation, Denies dysphagia, Denies heartburn, Denies diarrhea, Denies nausea, Denies odynophagia and Denies vomiting Denies hematuria, Denies urinary frequency, Denies dysuria, Denies urinary incontinence and Denies urinary urgency Musc Reports back pain (on and off), Reports arthralgias (left knee, on and off), Denies joint swelling, Denies muscle weakness and Denies neck pain Skin/Breast Denies breast pain, Denies breast mass, Denies change in pigmentation, Denies lesions, Denies rash and Denies unusual bruising Neuro Denies dizziness, Denies headache(s) and Denies paresthesias Psych Denies anxiety and Denies depression Endo Denies fatigue and Denies palpitations Jayson/Lymph Denies easy bruising Aller/Immun Denies itchy eyes and Denies wheezing Physical exam (Primary Care) Vital Signs: Last Vital Signs Pulse 77 05/25/23 17:24 BP 110/80 05/25/23 17:24 Pulse Ox 97 05/25/23 17:24 Oxygen Delivery Method Room Air 05/25/23 17:24 BMI result Body Mass Index 34.1 Tobacco/Smoking Status: Tobacco use Status Tobacco use date assessed 05/25/23 05/25/23 17:28 Patient Tobacco Use Status Former Tobacco user 05/25/23 17:28 e-Cigarette/Vaping Use Never Used 05/25/23 17:28 PHQ-9: PHQ-9 Score PHQ-9: Total score 0 05/26/23 03:02 Depression Screening Interpretation: Negative Thrive Assessment: Date of Thrive Assessment Date Thrive assessed 05/25/23 05/25/23 17:28 Currently or been in a relationship where the following occur: no concerns reported Const General: no acute distress, alert and awake Orientation/consciousness: patient oriented x3 HENMT Head: Yes normocephalic and Yes atraumatic Ears: external ears normal, TM's normal bilaterally and EAC's normal General nose exam: No nasal discharge present Face and sinus: Yes normal facial exam and Yes sinuses nontender Teeth and gingiva: dentition normal Throat: Yes posterior oropharynx normal and Yes tonsils normal (no TP congestion) Eyes Eyelids: Yes eyelids normal Conjunctivae: conjunctivae normal Pupils: Equal, round and reactive pupils present EOM: EOMs intact bilaterally Neck Neck: Yes no lymphadenopathy and Yes supple Thyroid: Thyroid normal Resp Auscultation: clear to auscultation bilaterally, no rales and no wheezes Cardio Rate: regular rate Rhythm: regular rhythm Heart sounds: no murmurs GI Palpation (GI): Soft to palpation, nontender and No hepatosplenomegaly present Auscultation: normal bowel sounds General: Yes no CVA tenderness Back/Spine/Pelvis Back: no CVA tenderness Thoracic/Lumbar Spine: lumbar spinal tenderness (mild) Skin Lesions: no lesions Rashes: no rashes Neuro General: patient oriented x3, moves all extremities, no focal motor deficits and CN's II-XI intact bilaterally Cranial nerves: Yes Equal, round and reactive pupils present Cognition (Neuro): normal cognition Gait exam (Neuro): Normal gait present Extrem General: Yes no clubbing, cyanosis or edema Left lower extremity: knee Details: tenderness (mild) Location: of the tibial tuberosity and of the pre-patellar area and normal ROM; no swelling Assessment and Plan Assessment & Plan (1) Annual physical exam: Code(s): Z00.00 - Encounter for general adult medical examination without abnormal findings Plan: Check labs - will have patient use her current lab orders (updated) for her lab draw She is up-to-date with her annual cervical cancer screening Is not yet due to start routine mammograms and screening colonoscopy - has no increased personal or family Hx risks (2) Asthma: Code(s): J45.909 - Unspecified asthma, uncomplicated Qualifiers: Asthma complication type: uncomplicated Asthma persistence: intermittent Asthma severity: mild Qualified Code(s): J45.20 - Mild intermittent asthma, uncomplicated Plan: Stable/controlled Continue Montelukast 10 mg Q PM and Ventolin HFA 2 inhalations Q 6 hours PRN (3) Migraine: Code(s): G43.909 - Migraine, unspecified, not intractable, without status migrainosus Qualifiers: Intractability: not intractable Migraine type: unspecified Status migrainosus presence: without status migrainosus Qualified Code(s): G43.909 - Migraine, unspecified, not intractable, without status migrainosus Plan: Stable - reinforced avoidance of migraine triggers Continue Ibuprofen 400 mg Q 6 to 8 hours PRN - Rx refilled (4) Allergic rhinitis: Code(s): J30.9 - Allergic rhinitis, unspecified Qualifiers: Allergic rhinitis seasonality: unspecified Allergic rhinitis trigger: unspecified Qualified Code(s): J30.9 - Allergic rhinitis, unspecified Plan: Continue Cetirizine 10 mg QD PRN and Fluticasone 50 mcg nasal spray QD PRN (5) Vitamin D deficiency: Code(s): E55.9 - Vitamin D deficiency, unspecified Plan: Continue Vitamin D3 1250 mcg once a week (6) GERD without esophagitis: Code(s): K21.9 - Gastro-esophageal reflux disease without esophagitis Plan: Dietary restrictions reinforced Continue Omeprazole 40 mg QD - states that her symptoms are well-controlled as long as she stays on her Rx (7) Patellofemoral arthralgia of left knee: Code(s): M25.562 - Pain in left knee Plan: Continue Tramadol 50 mg TID PRN and Ibuprofen 400 mg Q 6 to 8 hours PRN for pain Follow up with orthopedics as scheduled (8) Neck pain: Code(s): M54.2 - Cervicalgia Plan: Cervical spine x-rays done in the past came out normal Continue Cyclobenzaprine 5 mg Q HS PRN and Ibuprofen 400 mg Q 6 to 8 hours PRN for pain (9) Low back pain: Code(s): M54.50 - Low back pain, unspecified Qualifiers: Back pain laterality: midline Chronicity: unspecified Sciatica presence: without sciatica Qualified Code(s): M54.50 - Low back pain, unspecified Plan: Reinforced activity and weight-lifting restrictions Continue Lidocaine patches 5% QD PRN and Ibuprofen 400 mg Q 6 to 8 hours PRN for pain Will consider referral to physical therapy if her low back pain persists or progresses (10) Obesity (BMI 30-39.9): Code(s): E66.9 - Obesity, unspecified Plan: Reinforced diet/exercise as tolerated/lose weight Plan Follow up in 6 months Medications: New multivitamin (Multiple Vitamins tablet) 1 tab PO DAILY 90 days 90 tabs 3RF Changed From omeprazole 40 mg PO DAILY 30 days PRN 30 caps 12RF heartburn or abdominal pain K21.9 - Gastro-esophageal reflux disease without esophagitis To omeprazole 40 mg PO DAILY 90 days PRN 90 caps 3RF heartburn or abdominal pain K21.9 - Gastro-esophageal reflux disease without esophagitis From ibuprofen 400 mg PO Q6H PRN 20 tabs 0RF pain To ibuprofen Take with food 400 mg PO Q6H PRN 90 tabs 1RF pain Refilled Ventolin HFA 90 mcg/actuation (albuterol sulfate) 2 puffs inhalation Q6H PRN 18 grams 2RF shortness of breath or wheezing NS Coding Level of Care Code Est Pt Prev Care 18-39y([id number]) Diagnoses Annual physical exam Z00.00 Mild intermittent asthma without complication J45.20 Asthma complication type: uncomplicated Asthma persistence: intermittent Asthma severity: mild Migraine without status migrainosus, not intractable, unspecified migraine type G43.909 Intractability: not intractable Migraine type: unspecified Status migrainosus presence: without status migrainosus Allergic rhinitis, unspecified seasonality, unspecified trigger J30.9 Allergic rhinitis seasonality: unspecified Allergic rhinitis trigger: unspecified Vitamin D deficiency E55.9 GERD without esophagitis K21.9 Patellofemoral arthralgia of left knee M25.562 Neck pain M54.2 Midline low back pain without sciatica, unspecified chronicity M54.50 Back pain laterality: midline Chronicity: unspecified Sciatica presence: without sciatica Obesity (BMI 30-39.9) E66.9
[2023-05-25 17:24] VITALS: BP 110/80; PULSE 77; O2SAT 97; BMI 34.1
== END 2023-05-25 18:18 | disposition home or self-care (01) ==
PROVIDERS: PCP Internal Medicine; Visit Provider Internal Medicine
DX: Z00.00 Encounter for general adult medical examination without abnormal findings (principal); J45.20 Mild intermittent asthma, uncomplicated; E66.9 Obesity, unspecified; Z68.34 Body mass index [BMI] 34.0-34.9, adult; G43.909 Migraine, unspecified, not intractable, without status migrainosus; J30.9 Allergic rhinitis, unspecified; E55.9 Vitamin D deficiency, unspecified; K21.9 Gastro-esophageal reflux disease without esophagitis; M25.562 Pain in left knee; M54.2 Cervicalgia; M54.50 Low back pain, unspecified
CPT/HCPCS: 99395

== ENCOUNTER 2023-06-06 16:42 | Emergency (ER) | payer OTHER, SELFPAY ==
[2023-06-06 17:00] VITALS: BP 149/98; PULSE 82; RESP 16; TEMP 36.6; O2SAT 97; BMI 29.3
--- NOTE | 2023-06-06 17:00 | ED_ITS ---
HPI - Back Pain/Injury General Chief Complaint: Back Pain/Injury Stated Complaint: lower back pain Time Seen by Provider: 06/06/23 17:03 Source: patient, RN notes reviewed and old records reviewed Mode of arrival: ambulatory History of Present Illness HPI Narrative: 33-year-old female with a past medical history of asthma, migraines, GERD, presenting to the ED complaining of bilateral low back pain x5 days without known injury/trauma or fall. Has been using heat packs at home with relief. Pain described as feeling stiff, worse with movement. States pain is nonradiating. Denies weakness, numbness/tingling, incontinence/retention, fever/chills MD elicited complaint: back pain Related Data Home Medications Medication Instructions Recorded Confirmed epinephrine 0.3 mg/0.3 mL IM 09/17/22 05/25/23 injection, auto-injector Previous Rx's Medication Instructions Recorded mometasone 0.1 % topical cream 1 appl topical DAILY PRN skin 05/13/22 irritation/rash #45 grams cholecalciferol (vitamin D3) 1,250 1,250 mcg PO QWEEK 3 months #13 05/22/22 mcg (50,000 unit) capsule caps fluticasone propionate 50 2 spray intranasal DAILY PRN 05/22/22 mcg/actuation nasal allergy symptoms 30 days #16 grams spray,suspension lidocaine 4 % topical patch 1 patch topical DAILY PRN pain #15 05/22/22 (Aspercreme (lidocaine)) ea Lubricant Eye Drops 0.5 % 2 drp ophthalmic (eye) TID PRN dry 06/10/22 (carboxymethylcellulose sodium) eye(s) #15 mL diphenhydramine HCl 25 mg capsule 50 mg (2 x 25 mg) PO TID PRN 06/10/22 (Benadryl) allergic reaction #30 caps lidocaine 5 % topical patch 1 patch topical DAILY PRN pain #30 06/11/22 ea cetirizine 10 mg tablet 10 mg PO DAILY PRN allergy 06/18/22 symptoms 90 days #90 tabs montelukast 10 mg tablet 10 mg PO DAILY 30 days #30 tabs 06/18/22 vitamin with calcium 1 tab PO DAILY #90 tabs 09/17/22 no.72-iron 27 mg-folic acid 1 mg tablet ( Vitamins Plus Low Iron) cyclobenzaprine 5 mg tablet 5 mg PO BEDTIME PRN muscle spasm 10/07/22 #14 tabs diclofenac sodium 1 % topical gel 2 g topical QID PRN pain #100 grams 10/07/22 (Arthritis Pain (diclofenac)) Ventolin HFA 90 mcg/actuation 2 puff inhalation Q6H PRN 05/25/23 aerosol inhaler (albuterol sulfate) shortness of breath or wheezing #18 grams ibuprofen 400 mg tablet 400 mg PO Q6H PRN pain #90 tabs 05/25/23 multivitamin (Multiple Vitamins 1 tab PO DAILY 90 days #90 tabs 05/25/23 tablet) omeprazole 40 mg capsule,delayed 40 mg PO DAILY PRN heartburn or 05/25/23 release abdominal pain 90 days #90 caps acetaminophen 500 mg tablet 500 mg PO Q6H PRN fever or pain 06/06/23 (Tylenol Extra Strength) #14 tabs cyclobenzaprine 5 mg tablet 5 mg PO Q8H PRN pain (scale score 06/06/23 7-10) 5 days #14 tabs lidocaine 5 % topical patch 1 patch topical DAILY PRN pain #30 06/06/23 (Lidoderm) ea Allergies Allergy/AdvReac Type Severity Reaction Status Date / Time naproxen [NAPROXEN] Allergy Unknown RASH, Verified 06/06/23 17:03 SWOLLEN FEET, rash nitrofurantoin Allergy Unknown RASH, rash Verified 06/06/23 17:03 [NITROFURANTOIN] + nausea Review of Systems Review of Systems: Constitutional: No Fever, No Chills ENT/Mouth: No Ear Pain, No Nasal Congestion, No sore throat, No Rhinorrhea Cardiovascular: No Chest Pain, No SOB Respiratory: No Cough Gastrointestinal: No Nausea, No Vomiting, No Abdominal pain Genitourinary: No Dysuria, No Hematuria, No Urinary Incontinence/retention, No Flank Pain Musculoskeletal: +joint pain, No Myalgias, No Joint Swelling Skin: No Skin Lesions, No rash Neuro: No Weakness, No Numbness, No Paresthesias Yes all other systems are reviewed and are negative Constitutional: Constitutional: Reports as per HPI Neurologic: Denies Sensory deficit (Neuro) [facility] Past Medical History Attestation statement: The following information was validated with the patient. Source: old records reviewed Medical History Asthma Obesity (BMI 30-39.9) GERD without esophagitis Vitamin D deficiency Allergic rhinitis Migraine NILDA positive Patellofemoral arthralgia of left knee Surgical History History of excision of mass Hx of carpal tunnel repair Pilar cyst Family History Family History Father HTN (hypertension) Mother HTN (hypertension) Brother No problems noted. Brother No problems noted. Brother No problems noted. Sister No problems noted. Social History Social History Housing: House Alcohol intake: current Alcohol intake frequency: holidays/special occasions only Patient Tobacco Use Status: Former Tobacco user e-Cigarette/Vaping Use: Never Used Second Hand Smoke Exposure: Yes service: No Current occupational status: employed Cognitive needs: No Hearing needs: No Vision needs: Yes Physical Exam Vital Signs: Vital Signs: Last Vital Signs Temp 97.8 F 06/06/23 17:00 Pulse 82 06/06/23 17:00 Resp 16 06/06/23 17:00 BP 149/98 H 06/06/23 17:00 Pulse Ox 97 06/06/23 17:00 O2 Del Method Room Air 06/06/23 17:00 BMI result Body Mass Index 29.3 Const: General: cooperative, healthy appearing and no acute distress Orientation/consciousness: patient oriented x3 Limitations: no limitations HEENT: Head: Yes normal to inspection and Yes atraumatic Ears: hearing gabriela ssly normal bilaterally General nose exam: Normal external nose present Face and sinus: Yes normal facial exam Eyes: General: appearance normal, both eyes and all related structures EOM: EOMs intact bilaterally Neck: Neck: Yes normal visual inspection and Yes no meningeal signs Resp: Effort & Inspection: normal respiratory effort and no respiratory distre ss Cardio: Rate: regular rate GI: Inspection: Yes normal to inspection Palpation (GI): Soft to palpation, nontender, no guarding and not rigid : General: Yes no CVA tenderness Back/Spine/Pelvis: Other: No midline cervical/thoracic/lumbar spinous tenderness/step-off or deformity. + bilateral lumbar paraspinal/MSK tenderness to palpation reproducing subjective complaint, greater on left. Appreciable muscle spasming noted. No erythema/warmth or rash Back: no CVA tenderness Skin: Rashes: no rashes Wounds: no wounds Neuro: Other: Strength intact throughout. No saddle anesthesia. Sensation intact to light touch. Neurovascular intact distally General: patient oriented x3, gait normal, tone normal, moves all extremities, no meningeal signs and no focal motor deficits Cranial nerves: Yes CN's II-XII intact bilaterally Gait exam (Neuro): Normal gait present Motor exam (neuro): 5/5 motor strength present throughout Sensory Exam: No Sensory deficit (Neuro) Extrem: General: Yes normal to inspection Medical Decision Making Medical Decision Making MDM Narrative: 33-year-old female with a past medical history of asthma, migraines, GERD, presenting to the ED complaining of bilateral low back pain x5 days without known injury/trauma or fall. On exam vital signs stable, NAD, nontoxic appearing, physical exam as noted above. No midline spinous tenderness throughout or red flag symptoms. Ambulating with steady gait. Abdomen soft/nontender. Concern for muscle spasming/strain vs possible herniated disc. Low suspicion for fracture, cauda equina/cord compression, epidural abscess, intra-abdominal pathology, renal stones/pyelo Plan: Pain control, PCP follow-up Please refer to course for remaining clinical decision making, interpretation of labs/imaging results, and discussions with consultants and/or family members. Results discussed with patient including worrisome signs and symptoms and strict return precautions, and when to return to the emergency department. They verbalized understanding and feel safe for discharge at this time. Differential Diagnosis Differential Diagnoses: The differential diagnosis associated with the presentation includes As above External Record Review External record reviewed: Inpatient record, Office record, Outpatient record, Prior outpatient labs, Prior outpatient radiology, Primary care record and Outside ED record Tests considered The following testing was considered but not selected: As above Prescription Management I considered prescription management with: Pain Medication Discharge Plan Discharge Clinical Impression: Low back pain Patient Disposition: Home, Self-Care Instructions: Acute Low Back Pain (ED) Additional Instructions: Your pain is likely musculoskeletal Flexeril is a muscle relaxer, take at night as it makes you drowsy, do not drive, drink alcohol, or operate machinery while taking it Lidoderm patches are numbing patches, apply to painful area In addition take Tylenol at home If symptoms persist or worsen, pain becomes unbearable, you developed urinary retention or incontinence, or weakness return to the ED Prescriptions: New acetaminophen [Tylenol Extra Strength] 500 mg tablet 500 mg PO Q6H PRN (Reason: fever or pain) Qty: 14 0RF lidocaine [Lidoderm] 5 % adhesive patch,medicated 1 patch topical DAILY MDD remove after 12 hours PRN (Reason: pain) Qty: 30 0RF Rx Instructions: leave on most painful area for up to 12 hrs cyclobenzaprine 5 mg tablet 5 mg PO Q8H PRN (Reason: pain (scale score 7-10)) 5 Days Qty: 14 0RF No Action mometasone 0.1 % cream 1 appl topical DAILY PRN (Reason: skin irritation/rash) Qty: 45 1RF carboxymethylcellulose sodium [Lubricant Eye Drops] 0.5 % drops 2 drp ophthalmic (eye) TID PRN (Reason: dry eye(s)) Qty: 15 3RF lidocaine 5 % adhesive patch,medicated 1 patch topical DAILY PRN (Reason: pain) Qty: 30 3RF Rx Instructions: leave on most painful area for up to 12 hrs diphenhydramine HCl [Benadryl] 25 mg capsule 50 mg PO TID PRN (Reason: allergic reaction) Qty: 30 0RF lidocaine [Aspercreme (lidocaine)] 4 % adhesive patch,medicated 1 patch topical DAILY PRN (Reason: pain) Qty: 15 3RF cholecalciferol (vitamin D3) 1,250 mcg (50,000 unit) capsule 1,250 mcg PO QWEEK 90 Days Qty: 13 3RF fluticasone propionate 50 mcg/actuation spray,suspension 2 spray intranasal DAILY PRN (Reason: allergy symptoms) 30 Days Qty: 16 12RF Rx Instructions: administer into each nostril cetirizine 10 mg tablet 10 mg PO DAILY PRN (Reason: allergy symptoms) 90 Days Qty: 90 3RF montelukast 10 mg tablet 10 mg PO DAILY 30 Days Qty: 30 3RF albuterol sulfate [Ventolin HFA] 90 mcg/actuation HFA aerosol inhaler 2 puff inhalation Q6H PRN (Reason: shortness of breath or wheezing) Qty: 18 2RF omeprazole 40 mg capsule,delayed release(DR/EC) 40 mg PO DAILY PRN (Reason: heartburn or abdominal pain) 90 Days Qty: 90 3RF multivitamin [Multiple Vitamins] Tablet 1 tab PO DAILY 90 Days Qty: 90 3RF ibuprofen 400 mg tablet 400 mg PO Q6H PRN (Reason: pain) Qty: 90 1RF Rx Instructions: Take with food cyclobenzaprine 5 mg tablet 5 mg PO BEDTIME PRN (Reason: muscle spasm) Qty: 14 0RF diclofenac sodium [Arthritis Pain (diclofenac)] 1 % gel 2 g topical QID PRN (Reason: pain) Qty: 100 0RF epinephrine 0.3 mg/0.3 mL auto-injector IM Vitamin Plus Low Iron 27 mg iron- 1 mg tablet 1 tab PO DAILY Qty: 90 2RF Referrals: Nico Riley MD [Primary Care Provider] - 1 week
== END 2023-06-06 17:24 | disposition home or self-care (01) ==
LOC: HO.ED 17:13
PROVIDERS: Emergency Provider Student in an Organized Health Care Education/Training Program; PCP Internal Medicine
DX: M54.50 Low back pain, unspecified (principal); Z87.891 Personal history of nicotine dependence
CPT/HCPCS: 99282; 99283; 99284

== ENCOUNTER 2023-10-07 16:00 | Outpatient (RCR) | payer OTHER, SELFPAY ==
--- NOTE | 2023-07-15 17:15 | MHC.PT.EP ---
[facility] [place] Office [place] Office [place] Office [address] Clement Tidwell [address] [phone] F: [phone] F: [phone] F: [phone] F: [phone] Physical Therapy Plan of Care Date of Evaluation: 07/15/23 Date of Surgery: Diagnosis: low back pain (RS) Assessment: Patient is a pleasant 33 y.o. 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 Nico Riley MD, with Dx of low back pain. She responds well to and would benefit from extension bias as well as core strengthening/stabilization exercises. Patient impairments include limited ROM, weakness in glutes and core, antalgic gait, poor body mechanics and posture. Patient current functional limitations are difficulty getting up out of bed in the morning, prolonged sitting. Patient will benefit from skilled PT to address aforementioned impairments and functional limitations to meet established goals. Frequency and Duration: The patient will be seen 1-2x/week for 4 weeks Short Term Goals: 2 weeks Patient demonstrates consistency and independence with HEP to self manage symptoms. [facility] Goals: 4 weeks Patient presents with increased lumbar extension 25 degrees to be able to sit for prolonged periods of time without sxs. Patitnet presents with increased bilateral glut med 5/5 to be able to get out of bed in the morning without sxs. Treatment Plan: Modalities to reduce pain, spasms and effusion. Manual therapy to restore motion and function. Therapeutic exercise to improve strength and flexibility. Neuromuscular re-education for posture and balance. Therapeutic activities to return to functional activities of daily living. Electronically signed by: Viky Reina, PT, DPT Please sign and return to therapist. Thank you for your referral.
--- NOTE | 2023-10-08 13:55 | MHC.PT.DC ---
[facility] [place] Office [place] Office [place] Office [address] Clement Tidwell [address] [phone] F: [phone] F: [phone] F: [phone] F: [phone] Physical Therapy Discharge Report Diagnosis: low back pain (RS) Date of Surgery: Date of Evaluation: 07/15/23 Date of Discharge: 10/07/23 Treatments to Date: 8 Cancellations to Date: No Shows to Date: Discharge Status: Improved Function Independent with HEP Discharge Summary: Sangita demonstrates reduction in pain, increased strength and ROM in her back and LEs, no longer having radicular sxs. I showed her core stabilization exercises in supine as to not stress her wrist. She is appropriate for discharge from PT to independent HEP. Electronically signed by: Viky Reina, PT, DPT Please sign and return to therapist. Thank you for your referral.
== END 2023-10-08 13:55 | disposition home or self-care (01) ==
LOC: HO.PT 16:00
PROVIDERS: PCP Internal Medicine; Visit Provider Internal Medicine
DX: M54.50 Low back pain, unspecified (principal)
CPT/HCPCS: 97110; 97140; 97161; 97530

== ENCOUNTER 2023-10-21 14:13 | Outpatient (REF) | payer OTHER, SELFPAY ==
[2023-10-22 06:05] LABS: CT PCR NOT DETECTED (Not Detect.); NG PCR NOT DETECTED (Not Detect.)
[2023-10-22 09:14] LABS: Bacterial Vaginosis PCR POSITIVE (Negative); Candida Group PCR NOT DETECTED (Not Detect); Candida glab krusei PCR NOT DETECTED (Not Detect); Trichomonas vaginalis PCR DETECTED (Not Detect)
== END 2023-10-21 14:14 | disposition home or self-care (01) ==
LOC: HO.LAB 14:13
PROVIDERS: PCP Internal Medicine; Visit Provider Advanced Practice Midwife
DX: Z11.3 Encounter for screening for infections with a predominantly sexual mode of transmission (principal); N89.8 Other specified noninflammatory disorders of vagina; E66.9 Obesity, unspecified
CPT/HCPCS: 0352U; 87491; 87591; 99395

== ENCOUNTER 2023-10-21 14:13 | Outpatient (AMB) | payer OTHER, SELFPAY ==
--- NOTE | 2023-10-21 14:14 | MHC.OFFVIS ---
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: No Steel Die Engraver Services: Steel Die Engraver Present Information Interpreted: clinical only Special Effects Person: Special Effects Person Present Allergies naproxen [NAPROXEN] Allergy (Unknown, Verified 10/21/23 14:22) RASH, SWOLLEN FEET, rash nitrofurantoin [NITROFURANTOIN] Allergy (Unknown, Verified 10/21/23 14:22) RASH, rash + nausea Medication List - Last Reconciled 10/21/23 by Vanessa Noel CNM acetaminophen (Tylenol Extra Strength) 500 mg PO Q6H PRN cetirizine 10 mg PO DAILY PRN 90 days cholecalciferol (vitamin D3) 1,250 mcg PO QWEEK 3 months cyclobenzaprine 5 mg PO Q8H PRN 5 days cyclobenzaprine 5 mg PO BEDTIME PRN diclofenac sodium 1% (Arthritis Pain (diclofenac)) 2 grams topical QID PRN diphenhydramine HCl (Benadryl) 50 mg (2 x 25 mg) PO TID PRN epinephrine IM fluticasone propionate 50 mcg/actuation 2 sprays intranasal DAILY PRN 30 days ibuprofen 400 mg PO Q6H PRN lidocaine 5% (Lidoderm) 1 patch topical DAILY PRN MDD remove after 12 hours lidocaine 4% (Aspercreme (lidocaine)) 1 patch topical DAILY PRN lidocaine 5% 1 patch topical DAILY PRN Lubricant Eye Drops 0.5% (carboxymethylcellulose sodium) 2 drps ophthalmic (eye) TID PRN NS mometasone 0.1% 1 appl topical DAILY PRN montelukast 10 mg PO DAILY 30 days multivitamin (Multiple Vitamins tablet) 1 tab PO DAILY 90 days omeprazole 40 mg PO DAILY PRN 90 days Ventolin HFA 90 mcg/actuation (albuterol sulfate) 2 puffs inhalation Q6H PRN NS Is last menstrual period known: Yes Last menstrual period: 10/09/23 HPI HPI 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 Riley and says he has not worried about anything and she has some blood work to do for him that is fasting. 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 she is enjoying the summer. She is open to if it happens but she has not trying right now. [facility] Medical History Asthma Obesity (BMI 30-39.9) GERD without esophagitis Vitamin D deficiency Allergic rhinitis Migraine NILDA positive Patellofemoral arthralgia of left knee Surgical History History of excision of mass Hx of carpal tunnel repair Pilar cyst Family History Father HTN (hypertension) Mother HTN (hypertension) Brother No problems noted. Brother No problems noted. Brother No problems noted. Sister No problems noted. Social History Housing: House Alcohol intake: current Alcohol intake frequency: holidays/special occasions only Patient Tobacco Use Status: Former Tobacco user e-Cigarette/Vaping Use: Never Used Second Hand Smoke Exposure: Yes service: No Current occupational status: employed Cognitive needs: No Hearing needs: No Vision needs: Yes Female Reproductive History Menstrual Age of Menarche: 18 Duration of menses: 6-7 days Date of last menstrual period: 10/09/23 control method: none Total pregnancies: 0 Date of last pap smear: 09/18/22 (negative) History of abnormal pap smear: Yes (hx abn. unsure date) Physical Exam Vital Signs: Last Vital Signs BP 112/66 10/21/23 14:22 BMI result Body Mass Index 33.5 Const General: healthy appearing, comfortable, no acute distress, well developed and alert Nutritional Appearance: average body habitus Orientation/consciousness: patient oriented x3 Limitations: no limitations HEENT Head: Yes normocephalic Neck Neck: Yes normal visual inspection Chest Chest palpation & inspection: normal inspection of the chest Breast/axilla inspection: normal inspection of the breasts and normal inspection of the axillae Breast/axilla palpation: normal palpation of the breasts and normal palpation of the axillae Resp Effort & Inspection: normal respiratory effort GI Inspection: Yes normal to inspection, No Abdominal wall edema and No distended Palpation (GI): Soft to palpation and nontender Other: External exam within normal limits vagina is pink and moist cervix nulliparous pink smooth round nontender mobile with normal scant white discharge consistent with phase of cycle uterus small midposition mobile nontender adnexa nontender good tone with Kegel instructed on Kegel's General: Yes bladder normal to palpation External Female Exam: normal external appearance and normal appearance of the urethra Speculum Exam - Vagina: normal appearance of the vagina, normal palpation and normal vaginal discharge Speculum Exam - Cervix: normal appearance of the cervix, normal palpation and nontender Bimanual exam- vagina & uterus: normal bimanual exam, normal palpation, uterine size normal, bladder normal to palpation, consistency normal, normal palpation, uterine mobility normal, uterine shape normal, No Cervical tenderness present, non-tender and no cervical motion tenderness Bimanual Exam- Adnexa, other: normal adnexae, no masses, normal and No adnexal tenderness Neuro General: patient oriented x3 Assessment & Plan Assessment & Plan (1) Screen for sexually transmitted diseases: Code(s): Z11.3 - Encounter for screening for infections with a predominantly sexual mode of transmission Category: Medical (2) Cervical cancer screening: Comment: History of abnormal unclear when last Pap normal 2017, Pap done 09/17/2022== negative with negative HPV.. Code(s): Z12.4 - Encounter for screening for malignant neoplasm of cervix Category: Medical (3) Well woman exam with routine gynecological exam: Code(s): Z01.419 - Encounter for gynecological examination (general) (routine) without abnormal findings Category: Medical (4) Obesity (BMI 30-39.9): Code(s): E66.9 - Obesity, unspecified Category: Medical Plan -----Discussed in this visit the following: healthy balanced diet, regular and consistent exercise, getting recommended health screens, doing the best she can for her particular health concerns, kegel exercises, pap smear screening and followup recommendations, mammography screening and SBE, normal changes in cycles in her life stage--- . Discussed being physically and emotionally ready and being in the best health she can be in. Discussed taking multivitamins with folic acid discussed trying to be best weight and having addressed as many healthcare challenges as might be necessary ahead of time.. Discussed options for care and delivery in the [facility] which include depending on where she lives delivering at either [facility], [facility], [facility], and/ or other options. Discussed that is she would be having her 1st baby I would strongly recommend that she consider starting care from the start with a practice that she would want to deliver with. Discussed the rationale in the there so many issues to think about and consider in 1st that she would want establish trusting relationships with providers who are going to deliver her baby so she can feel comfortable discussing anything that could come up. Discussed that while we CAN provide care here at [facility], because we are not delivering babies here here and do not have full scope obstetrical practice here, somebody having their 1st baby would be better served starting from the beginning where they would deliver. If somebody is low risk and chooses to come here for care any obstetrical ultrasounds and specialized testing would need to be done at [facility] and delivery occurs at [facility]. Because of the issues involved with transfer information sometimes information can sometimes not crossover as expected. RTC next year. Orders: Orders CT NG by PCR Today N89.8 - Other specified noninflammatory disorders of vagina, Z11.3 - Encounter for screening for infections with a predominantly sexual mode of transmission Bacterial Vaginosis Panel Today N89.8 - Other specified noninflammatory disorders of vagina Coding Level of Care Code Est Pt Prev Care [id number]([id number]) Diagnoses Screen for sexually transmitted diseases Z11.3 Cervical cancer screening Z12.4 Well woman exam with routine gynecological exam Z01.419 Obesity (BMI 30-39.9) E66.9
[2023-10-21 14:22] VITALS: BP 112/66; BMI 33.5
== END 2023-10-21 15:16 | disposition home or self-care (01) ==
LOC: HO.HWSM 14:13
PROVIDERS: PCP Internal Medicine; Visit Provider Advanced Practice Midwife
DX: Z01.419 Encounter for gynecological examination (general) (routine) without abnormal findings (principal); E66.9 Obesity, unspecified
CPT/HCPCS: 99395

== ENCOUNTER 2023-12-30 14:04 | Outpatient (REF) | payer OTHER, SELFPAY ==
[2023-12-31 06:37] LABS: CT PCR NOT DETECTED (Not Detect.); NG PCR NOT DETECTED (Not Detect.)
[2023-12-31 09:31] LABS: Bacterial Vaginosis PCR POSITIVE (Negative); Candida Group PCR NOT DETECTED (Not Detect); Candida glab krusei PCR NOT DETECTED (Not Detect); Trichomonas vaginalis PCR NOT DETECTED (Not Detect)
== END 2023-12-30 14:05 | disposition home or self-care (01) ==
LOC: HO.LAB 14:04
PROVIDERS: PCP Internal Medicine; Visit Provider Advanced Practice Midwife
DX: N89.8 Other specified noninflammatory disorders of vagina (principal); A59.9 Trichomoniasis, unspecified; Z11.3 Encounter for screening for infections with a predominantly sexual mode of transmission; Z12.4 Encounter for screening for malignant neoplasm of cervix
CPT/HCPCS: 0352U; 87491; 87591; 99212

== ENCOUNTER 2023-12-30 14:04 | Outpatient (AMB) | payer OTHER, SELFPAY ==
[2023-12-30 14:34] VITALS: BP 110/66; BMI 34.0
--- NOTE | 2023-12-30 14:34 | A.OFFVIS_ITS ---
Vital Signs 12/30/23 14:34 Height 5 ft 2 in Weight 186 lb BMI 34.0 BP 110/66 Intake Visit Reasons: MONO Audiometric Technician Required: No Information Interpreted: clinical only Strap Stitcher: Strap Stitcher Present Allergies naproxen [NAPROXEN] Allergy (Unknown, Verified 12/30/23 14:36) RASH, SWOLLEN FEET, rash nitrofurantoin [NITROFURANTOIN] Allergy (Unknown, Verified 12/30/23 14:36) RASH, rash + nausea Medication List - Last Reconciled 12/30/23 by Vanessa Noel CNM acetaminophen (Tylenol Extra Strength) 500 mg PO Q6H PRN cetirizine 10 mg PO DAILY PRN 90 days cholecalciferol (vitamin D3) 1,250 mcg PO QWEEK 3 months cyclobenzaprine 5 mg PO Q8H PRN 5 days cyclobenzaprine 5 mg PO BEDTIME PRN diclofenac sodium 1% (Arthritis Pain (diclofenac)) 2 grams topical QID PRN diphenhydramine HCl (Benadryl) 50 mg (2 x 25 mg) PO TID PRN epinephrine IM fluticasone propionate 50 mcg/actuation 2 sprays intranasal DAILY PRN 30 days ibuprofen 400 mg PO Q6H PRN lidocaine 5% 1 patch topical DAILY PRN Lubricant Eye Drops 0.5% (carboxymethylcellulose sodium) 2 drps ophthalmic (eye) TID PRN NS mometasone 0.1% 1 appl topical DAILY PRN montelukast 10 mg PO DAILY 30 days multivitamin (Multiple Vitamins tablet) 1 tab PO DAILY 90 days omeprazole 40 mg PO DAILY PRN 90 days Ventolin HFA 90 mcg/actuation (albuterol sulfate) 2 puffs inhalation Q6H PRN NS Is last menstrual period known: Yes Last menstrual period: 12/07/23 HPI HPI MONO: Details: Patient is here for her a test of cure visit after being treated for trich in October. She noticed a big difference after taking medication she and her partner both to the medication and abstain from sex for quite some time. She also had an external rash and she called the nurses and they recommended that she try just cool water and then baking powder and it made huge difference and the rash cleared right up. She is open to getting blood work for STIs as well. [facility] Medical History (Updated 12/30/23 @ 14:52 by Vanessa Noel CNM) Asthma Obesity (BMI 30-39.9) GERD without esophagitis Vitamin D deficiency Allergic rhinitis Migraine NILDA positive Patellofemoral arthralgia of left knee Surgical History History of excision of mass Hx of carpal tunnel repair Pilar cyst Family History Father HTN (hypertension) Mother HTN (hypertension) Brother No problems noted. Brother No problems noted. Brother No problems noted. Sister No problems noted. Social History Housing: House Alcohol intake: current Alcohol intake frequency: holidays/special occasions only Patient Tobacco Use Status: Former Tobacco user e-Cigarette/Vaping Use: Never Used Second Hand Smoke Exposure: Yes service: No Current occupational status: employed Cognitive needs: No Hearing needs: No Vision needs: Yes Female Reproductive History Menstrual Age of Menarche: 18 Duration of menses: 6-7 days Date of last menstrual period: 12/07/23 control method: none Total pregnancies: 0 Date of last pap smear: 09/18/22 (negative) Physical Exam Vital Signs: Last Vital Signs BP 110/66 12/30/23 14:34 BMI result Body Mass Index 34.0 Other: External vulva appears ever so slightly swollen but not red or inflamed vagina is pink and moist with healthy appearing normal appearing white mucus consistent with luteal phase. Cervix is pink and smooth and clear. Testing done for gonorrhea chlamydia trichomoniasis Gardnerella BV. External Female Exam: normal external appearance and normal appearance of the urethra Speculum Exam - Vagina: normal appearance of the vagina and normal vaginal discharge Speculum Exam - Cervix: normal appearance of the cervix and Cervical os closed Results Reviewed Results Reviewed: Name: Sangita Johnson Age/Sex: 33/F : 1990 Unit#: [id number] Attend Dr: Vanessa Noel CNM Re10/21/23 Status: DEP REF Location: .LAB Disch: SPEC : [id number] ABDIRIZAK: 10/21/23-UNK STATUS: COMP REQ : [id number] RECD: 10/21/23-[address]: Vanessa Noel CNM COMP: 10/22/23-913 ENTERED: 10/21/23-[address]: Nico Riley MD ORDERED: BV Panel Test Result Flag Reference TV PCR DETECTED A Not Detect BV PCR POSITIVE A Negative The BV organism targets of the Xpert Xpress MVP test can be commensal in women; Xpert Xpress MVP positive results for bacterial vaginosis should be considered in conjunction with other clinical and patient information to determine the disease status. Organisms that are not detected by the Xpert Xpress MVP test have also been reported to be associated with BV and aerobic vaginitis. The Xpert Xpress MVP test performance has not been evaluated in patients under the age of 14. Danyell [facility]p PCR NOT DETECTED Not Detect Can gla-kru NOT DETECTED Not Detect END OF REPORT Assessment & Plan Assessment & Plan (1) Screen for sexually transmitted diseases: Code(s): Z11.3 - Encounter for screening for infections with a predominantly sexual mode of transmission Category: Medical (2) Cervical cancer screening: Comment: History of abnormal unclear when last Pap normal 2017, Pap done 09/17/2022== negative with negative HPV.. Code(s): Z12.4 - Encounter for screening for malignant neoplasm of cervix Category: Medical (3) Trichomoniasis: Comment: Treated 10/23/2023, test of cure 12/30/2023,,, Code(s): A59.9 - Trichomoniasis, unspecified Category: Medical Plan Test of cure done as well as testing for STIs and I offered her blood work for other STI screens. When placing the orders in the computer I noticed that she had a lot of fasting labs ordered for her primary care provider for basic metabolic screening and informed her of this so she is going to go get those done at hospital some morning as well I gave her information about portal so she can get the results herself and she is going to check to see if she has already signed in and if she isn't she may try it and if not she can call for the blood work results in a few days we would notify her about anything positive otherwise. Orders: Orders Hepatitis B Surface Antigen Today A59.9 - Trichomoniasis, unspecified, Z11.3 - Encounter for screening for infections with a predominantly sexual mode of transmission, Z12.4 - Encounter for screening for malignant neoplasm of cervix HIV Ab/Ag Today A59.9 - Trichomoniasis, unspecified, Z11.3 - Encounter for screening for infections with a predominantly sexual mode of transmission, Z12.4 - Encounter for screening for malignant neoplasm of cervix Syphilis Screen Today A59.9 - Trichomoniasis, unspecified, Z11.3 - Encounter for screening for infections with a predominantly sexual mode of transmission, Z12.4 - Encounter for screening for malignant neoplasm of cervix Hepatitis C Antibody Today A59.9 - Trichomoniasis, unspecified, Z11.3 - Encounter for screening for infections with a predominantly sexual mode of transmission, Z12.4 - Encounter for screening for malignant neoplasm of cervix Coding Level of Care Code Est Pt Level 3 (08563) Diagnoses Screen for sexually transmitted diseases Z11.3 Cervical cancer screening Z12.4 Trichomoniasis A59.9
== END 2023-12-30 15:08 | disposition home or self-care (01) ==
PROVIDERS: PCP Internal Medicine; Visit Provider Advanced Practice Midwife
DX: Z11.3 Encounter for screening for infections with a predominantly sexual mode of transmission (principal); Z12.4 Encounter for screening for malignant neoplasm of cervix; A59.9 Trichomoniasis, unspecified
CPT/HCPCS: 99213

== ENCOUNTER 2023-12-30 14:59 | Outpatient (REF) | payer OTHER, SELFPAY ==
[2023-12-31 04:35] LABS: Syphilis Screen Nonreactive (Nonreactive)
[2023-12-31 05:14] LABS: HIV AB/AG Nonreactive (Nonreactive); HIV Num 1 0.06 S/CO (0.00-0.99); Hepatitis B Surface Antigen Negative (Negative); ~HepC Num1 0.29 S/CO (0.00-0.79); ~Hepatitis C Antibody Nonreactive (Nonreactive)
== END 2023-12-30 15:00 | disposition home or self-care (01) ==
LOC: HO.HHCL 14:59
PROVIDERS: Visit Provider Advanced Practice Midwife
DX: A59.9 Trichomoniasis, unspecified (principal); Z11.3 Encounter for screening for infections with a predominantly sexual mode of transmission; Z12.4 Encounter for screening for malignant neoplasm of cervix
CPT/HCPCS: 36415; 86780; 86803; 87340; 87389

== ENCOUNTER 2024-02-09 20:39 | Emergency (ER) | payer OTHER, SELFPAY ==
[2024-02-09 21:44] VITALS: BP 127/94; PULSE 89; RESP 16; TEMP 36.8; O2SAT 99; BMI 32.7
[2024-02-09 22:33] LABS: IDNOW Serial# 08D9AD1C; Strep A Nucleic Acid Positive (Negative)
[2024-02-09 22:42] LABS: COVID-19 Test Negative (Negative); IDNOW Serial# 152EDE1D
[2024-02-09 23:01] LABS: IDNOW Serial# 08D9AD1C; Influenza A Negative (Negative); Influenza B2 Negative (Negative)
--- NOTE | 2024-02-09 23:59 | ED_ITS ---
HPI - URI/Sore Throat General Chief Complaint: Headache Stated Complaint: Flu like symptoms Time Seen by Provider: 02/09/24 23:50 Source: patient Mode of arrival: ambulatory Limitations: no limitations History of Present Illness HPI Narrative: Patient is a 33 year-old female who presents emergency department for evaluation of general myalgias, intermittent headache without vision changes dizziness lightheadedness neck pain, sore throat without inability to swallow, dry nonproductive cough and intermittent subjective fever over the past 2 days. Related Data Home Medications ?Medication ?Instructions ?Recorded ?Confirmed epinephrine 0.3 mg/0.3 mL IM 09/17/22 12/30/23 injection, auto-injector Previous Rx's ?Medication ?Instructions ?Recorded mometasone 0.1 % topical cream 1 appl topical DAILY PRN skin 05/13/22 irritation/rash #45 grams cholecalciferol (vitamin D3) 1,250 1,250 mcg PO QWEEK 3 months #13 05/22/22 mcg (50,000 unit) capsule caps fluticasone propionate 50 2 spray intranasal DAILY PRN 05/22/22 mcg/actuation nasal allergy symptoms 30 days #16 grams spray,suspension Lubricant Eye Drops 0.5 % 2 drp ophthalmic (eye) TID PRN dry 06/10/22 (carboxymethylcellulose sodium) eye(s) #15 mL diphenhydramine HCl 25 mg capsule 50 mg (2 x 25 mg) PO TID PRN 06/10/22 (Benadryl) allergic reaction #30 caps lidocaine 5 % topical patch 1 patch topical DAILY PRN pain #30 06/11/22 ea montelukast 10 mg tablet 10 mg PO DAILY 30 days #30 tabs 06/18/22 cyclobenzaprine 5 mg tablet 5 mg PO BEDTIME PRN muscle spasm 10/07/22 #14 tabs Ventolin HFA 90 mcg/actuation 2 puff inhalation Q6H PRN 05/25/23 aerosol inhaler (albuterol sulfate) shortness of breath or wheezing #18 grams ibuprofen 400 mg tablet 400 mg PO Q6H PRN pain #90 tabs 05/25/23 multivitamin (Multiple Vitamins 1 tab PO DAILY 90 days #90 tabs 05/25/23 tablet) omeprazole 40 mg capsule,delayed 40 mg PO DAILY PRN heartburn or 05/25/23 release abdominal pain 90 days #90 caps acetaminophen 500 mg tablet 500 mg PO Q6H PRN fever or pain 06/06/23 (Tylenol Extra Strength) #14 tabs cyclobenzaprine 5 mg tablet 5 mg PO Q8H PRN pain (scale score 06/06/23 7-10) 5 days #14 tabs cetirizine 10 mg tablet 10 mg PO DAILY PRN allergy 09/23/23 symptoms 90 days #90 tabs diclofenac sodium 1 % topical gel 2 g topical QID PRN pain #100 grams 10/14/23 (Arthritis Pain (diclofenac)) amoxicillin 500 mg capsule 1,000 mg (2 x 500 mg) PO DAILY 9 02/10/24 days #18 caps Allergies Allergy/AdvReac Type Severity Reaction Status Date / Time naproxen [NAPROXEN] Allergy Unknown RASH, Verified 02/09/24 21:47 SWOLLEN FEET, rash nitrofurantoin Allergy Unknown RASH, rash Verified 02/09/24 21:47 [NITROFURANTOIN] + nausea Review of Systems Review of Systems: Yes all other systems are reviewed and are negative PMFSH Past Medical History Attestation statement: The following information was validated with the patient. Source: old records reviewed Medical History Asthma Obesity (BMI 30-39.9) GERD without esophagitis Vitamin D deficiency Allergic rhinitis Migraine NILDA positive Patellofemoral arthralgia of left knee Surgical History History of excision of mass Hx of carpal tunnel repair Pilar cyst Family History Family History Father HTN (hypertension) Mother HTN (hypertension) Brother No problems noted. Brother No problems noted. Brother No problems noted. Sister No problems noted. Social History Social History Housing: House Alcohol intake: current Alcohol intake frequency: holidays/special occasions only Patient Tobacco Use Status: Former Tobacco user e-Cigarette/Vaping Use: Never Used Second Hand Smoke Exposure: Yes Advance Directives: No Advance Directives Information Provided: Yes Do you have a plan to hurt others: No Plan service: No Current occupational status: employed Cognitive needs: No Hearing needs: No Vision needs: Yes Physical Exam Vital Signs: Vital Signs: Last Vital Signs Temp 98.3 F 02/09/24 21:44 Pulse 89 02/09/24 21:44 Resp 16 02/09/24 21:44 BP 127/94 H 02/09/24 21:44 Pulse Ox 99 02/09/24 21:44 O2 Del Method Room Air 02/09/24 21:44 BMI result Body Mass Index 32.7 Appearance: Alert.?Oriented to person, place and time. No acute distress.?Normal affect. Eyes: Pupils equal, round and reactive to light.? ENT: TM normal bilaterally. Pharynx is erythematous with 2+ tonsillar hypertrophy bilaterally no exudates. Uvula midline. No trismus. No drooling. Neck: Normal inspection.? Neck supple.??No cervical adenopathy CVS: Heart sounds normal. Normal heart rate and rhythm.? Pulses normal.?? Respiratory: No respiratory distress.? Lung sounds clear to auscultation bilaterally?? Abdomen: Soft and non-tender. Normoactive bowel sounds. Skin: Skin warm and dry.? Normal skin color.? ? Extremities: No lower extremity edema.? Neuro: Moves all extremities spontaneously. Sensation intact bilaterally. No motor deficits. Ambulates with normal steady gait. Medical Decision Making Medical Decision Making MDM Narrative: Patient is a 33-year-old female presenting for evaluation as per HPI COVD- 19/influenza RSV testing is negative. 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 She received the first dose of amoxicillin while in the emergency department and remainder prescription was sent to her pharmacy. At this time history and physical exam not consistent with ACS/PE/pneumonia. Would defer CXR. Well-appearing, nontoxic, afebrile, no tachycardia or tachypnea/hypoxia. Speaking clear full sentences, ambulatory with steady gait. Discussed conservative treatment including rest, hydration, Tylenol/ibuprofen as needed for fever and body aches, saline nasal spray, humidifier, [id number] cold medication. Advised to follow-up with primary care provider as needed, discussed reasons to return back to the emergency department. All questions were answered. Patient discharged home in stable condition. Provided with a return to work/school note. Differential Diagnosis Differential Diagnoses: The differential diagnosis associated with the presentation includes ( See narrative above) Admission/Observation Consideration of admission/observation: Escalation of care including admission/observation considered ( see narrative above) Lab Data MDM Lab Attestation statement: I reviewed the patient's lab results. ( see narrative above) Labs: Lab Results 02/09/24 Range/Units 22:12 COVID-19 ([facility]) Negative (Negative) COVID-19 Clin Com See Note Influenza Type A ([facility]) Negative (Negative) Influenza Type B ([facility]) Negative (Negative) Influenza A & B Note See Note S. pyogenes GrpA [facility] Positive A (Negative) External Record Review External record reviewed: Outpatient record Tests considered The following testing was considered but not selected: See narrative above Prescription Management I considered prescription management with: Pain Medication ( acetaminophen/ibuprofen) and Antibiotic Discharge Plan Discharge Clinical Impression: Acute streptococcal pharyngitis Patient Disposition: Home, Self-Care Instructions: Strep Throat (DC) Prescriptions: New amoxicillin 500 mg capsule 1,000 mg PO DAILY 9 Days Qty: 18 0RF No Action mometasone 0.1 % cream 1 appl topical DAILY PRN (Reason: skin irritation/rash) Qty: 45 1RF carboxymethylcellulose sodium [Lubricant Eye Drops] 0.5 % drops 2 drp ophthalmic (eye) TID PRN (Reason: dry eye(s)) Qty: 15 3RF lidocaine 5 % adhesive patch,medicated 1 patch topical DAILY PRN (Reason: pain) Qty: 30 3RF Rx Instructions: leave on most painful area for up to 12 hrs cetirizine 10 mg tablet 10 mg PO DAILY PRN (Reason: allergy symptoms) 90 Days Qty: 90 11RF diclofenac sodium [Arthritis Pain (diclofenac)] 1 % gel 2 g topical QID PRN (Reason: pain) Qty: 100 0RF diphenhydramine HCl [Benadryl] 25 mg capsule 50 mg PO TID PRN (Reason: allergic reaction) Qty: 30 0RF acetaminophen [Tylenol Extra Strength] 500 mg tablet 500 mg PO Q6H PRN (Reason: fever or pain) Qty: 14 0RF cyclobenzaprine 5 mg tablet 5 mg PO Q8H PRN (Reason: pain (scale score 7-10)) 5 Days Qty: 14 0RF cholecalciferol (vitamin D3) 1,250 mcg (50,000 unit) capsule 1,250 mcg PO QWEEK 90 Days Qty: 13 3RF fluticasone propionate 50 mcg/actuation spray,suspension 2 spray intranasal DAILY PRN (Reason: allergy symptoms) 30 Days Qty: 16 12RF Rx Instructions: administer into each nostril montelukast 10 mg tablet 10 mg PO DAILY 30 Days Qty: 30 3RF albuterol sulfate [Ventolin HFA] 90 mcg/actuation HFA aerosol inhaler 2 puff inhalation Q6H PRN (Reason: shortness of breath or wheezing) Qty: 18 2RF omeprazole 40 mg capsule,delayed release(DR/EC) 40 mg PO DAILY PRN (Reason: heartburn or abdominal pain) 90 Days Qty: 90 3RF multivitamin [Multiple Vitamins] Tablet 1 tab PO DAILY 90 Days Qty: 90 3RF ibuprofen 400 mg tablet 400 mg PO Q6H PRN (Reason: pain) Qty: 90 1RF Rx Instructions: Take with food cyclobenzaprine 5 mg tablet 5 mg PO BEDTIME PRN (Reason: muscle spasm) Qty: 14 0RF epinephrine 0.3 mg/0.3 mL auto-injector IM Referrals: Nico Riley MD [Primary Care Provider] - Stand Alone Forms: Work/School Release Print Language: Vietnamese
[2024-02-10] MEDS: Amoxicillin 500 MG CAPSULE 1000 MG PO (00:13)
[2024-02-10 00:20] VITALS: BP 138/91; PULSE 83; RESP 16; TEMP 36.4; O2SAT 96
== END 2024-02-10 00:23 | disposition home or self-care (01) ==
PROVIDERS: Emergency Provider Emergency Medicine Emergency Medical Services; PCP Internal Medicine
DX: J02.0 Streptococcal pharyngitis (principal); R51.9 Headache, unspecified; R42 Dizziness and giddiness; R05.9 Cough, unspecified; R50.9 Fever, unspecified; M54.2 Cervicalgia; Z11.52 Encounter for screening for COVID-19; Z79.899 Other long term (current) drug therapy
CPT/HCPCS: 87502; 87635; 87651; 99283; 99284

== ENCOUNTER 2024-05-06 | Outpatient (REF) | payer OTHER, SELFPAY ==
[2024-05-06 16:55] LABS: Appearance Urine Clear; Color Urine Yellow; Glucose Urine UA Negative (Negative); Leukocyte Esterase Urine Negative (Negative); Nitrite Urine Negative (Negative); PH 5.5 (5.0-9.0); UMIC TRIGGER UACC YES; Urine Blood Small (1+) (Negative); Urine Ketones Negative (Negative); Urine Protein Negative (Neg-Trace)
[2024-05-06 17:09] LABS: Bacteria Urine 1+ (None Seen); Hyaline Casts Urine 0-2 /LPF (0-2); RBC Urine 0-2 /HPF (0-2); WBC Urine 0-5 /HPF (0-5)
--- OUTSIDE RECORDS SUMMARY | 2024-05-10 15:11 | XMS_ITS | Encounter Summary ---
Author Organization [facility] Address [address] [place] [phone] Phone Care Team Providers Care Tutor Name Role Phone Brionna Rey MD Primary Care Provider [phone] Encounter Details Date Type Department Care Team (Late st Contact Info) Description 11/18/2010 Documentation [facility] Family Medicine [address] [place] [address] Family Medicine, Physician [address] [place], [place] [id number] Social History Tobacco Use Types Packs/Day Years Used Date Smoking Tobacco: Never Assessed Comments Unknown Sex and Gender Information Value Date Recorded Sex Assigned at Not on file Legal Sex Female 4:44 PM EDT Gender Identity Not on file Sexual Orientation Not on file documented as of this encounter Plan of Treatment Not on file documented as of this encounter Visit Diagnoses Not on filedocumented in this encounter Care Teams Tutor Relationship Specialty Start Date End Date Brionna Rey MD [address] [place] [address] [place] [id number] PCP - General 11/28/16 07/31/22 documented as of this encounter
--- OUTSIDE RECORDS SUMMARY | 2024-05-10 15:11 | XMS_ITS | Clinical Summary ---
Author Organization [facility] Address [address] [place] [address] Care Team Providers Care Hyperbaric Technologist Name Role Phone Unavailable Primary Care Provider Unavailabl e Social History Tobacco Use Types Packs/Day Years Used Date Smoking Tobacco: Never Assessed Sex and Gender Information Value Date Recorded Sex Assigned at Not on file Gender Identity Not on file Sexual Orientation Not on file Plan of Treatment Health Maintenance Due Date Last Done Comments DTaP,Tdap,and Td Vaccines (1 - Tdap) 2010 Hepatitis B Vaccines (1 of 3 - 19+ 3-dose series) 2010 Cervical Cancer Screening: P ap Smear 02/12/2012 COVID-19 Vaccine (2023-2 5 season) 2023 Influenza Vaccine (#1) 2023 HIB Vaccines Aged Out No longer eligi ble based on patient's age to complete this topic HPV Vaccines Aged Out No longer eligi ble based on patient's age to complete this topic Hepatitis A Vaccines Aged Out No long er eligible based on patient's age to complete this topic IPV Vaccines Aged Out No longer eligi ble based on patient's age to complete this topic MMR Vaccines Aged Out No longer eligi ble based on patient's age to complete this topic Meningococcal ACWY Vaccine Aged Out N o longer eligible based on patient's age to complete this topic Pneumococcal Vaccine: Pediat rics (0 to 5 Years) and At-Risk Patients (6 to 64 Years) Aged Out No longer eligible b ased on patient's age to complete this topic RSV Immunization Patients Un ari 20 months Aged Out No longer eligible b ased on patient's age to complete this topic Varicella Vaccines Aged Out No longer eligible based on patient's age to complete this topic
--- OUTSIDE RECORDS SUMMARY | 2024-05-10 15:11 | XMS_ITS | Clinical Summary ---
Author Organization [facility] Address [address] [place] [phone] Phone Care Team Providers Care Pediatric Registered Nurse Name Role Phone Unavailable Primary Care Provider Unavailabl e Immunizations Name Administration Dates Next Due DTP 12/29/1995, 4,1991,08/04,1991 HPV, Quadrivalent 07/14/2007,03/10/2007,01/09/20 07 Hep B, ped/adol 02/02/1997,12/29/1995,11/13/1995 Hib (PRP-T) 07/23/1992, 2,1991,05/20 IPV 02/28/1994, 2,1991,05/20 MMR 11/13/1995,07/23/1992 Meningococcal Conj (Menactra) MCV4P 01/08/2007 Td (adult) (MBL), 2 Lf tetan us toxoid, PF, adsorbed 03/04/2002 Tdap 07/14/2008 Family History Relation Name Status Comments Father Alive Father: Alive a nd well Maternal Grandfather Alive Materna l grandfather: Alive and well Maternal Grandmother Materna l grandmother: Asthma Mother Mother: No Fami ly history of No history of Diabetes mellitus Other Family history of Cardiac Paternal Grandmother Paterna l grandmother: Cancer -, Social History Tobacco Use Types Packs/Day Years Used Date Smoking Tobacco: Never Comments:Never smoker Comments Unknown Sex and Gender Information Value Date Recorded Sex Assigned at Not on file Legal Sex Female 4:44 PM EDT Gender Identity Not on file Sexual Orientation Not on file Last Filed Vital Signs Vital Sign Reading Time Taken Comments Blood Pressure 112/66 07/02/2012 12:00 AM EDT Pulse - - Temperature 37.1 ??C (98.7 ??F) 07/02/2012 12:00 AM E DT Respiratory Rate - - Oxygen Saturation - - Inhaled Oxygen Concentration - - Weight 63 kg (139 lb) 07/02/2012 12:00 AM EDT Height 158.8 cm (5' 2.5 ) 07/02/2012 12:00 AM ED T Body Mass Index 25.02 07/02/2012 12:00 AM EDT Plan of Treatment Health Maintenance Due Date Last Done Comments Varicella Vaccines (1 of 2 - 13+ 2-dose series) 02/12/2004 DTaP,Tdap,and Td Vaccines (7 - Td or Tdap) 07/14/2018 07/14/2008, 03/04/2002, 12/29/1995, Additional history exists Influenza Vaccines (#1) 2023 COVID-19 Vaccine ( - 2023- season) 2023 HIB Vaccines Completed 07/23/1992, 09/19, 1991, Additional history exists IPV Vaccines Completed 02/28/1994, 09/20, 1991, Additional history exists MMR Vaccines Completed 11/13/1995, 07/23/1992 Hepatitis B Vaccines Completed 02/02/1997, 12/29/1995, 11/13/1995 Meningococcal Vaccine Aged Out 01/08/2007 No aundrea lili eligible based on patient's age to complete this topic HPV Vaccines Completed 07/14/2007, 02/19, 01/08/2007 Hepatitis A Vaccines Aged Out No long er eligible based on patient's age to complete this topic Men B Vaccine Aged Out No longer elig ible based on patient's age to complete this topic Pneumococcal Vaccine Aged Out No long er eligible based on patient's age to complete this topic Procedures * Due to [place] [employer] law, this organization might not be sharing sensitive test results. Procedure Name Priority Date/Time Associated Diagnosis Comments CHLAMYDIA AND GONORRHEA, AMPLIFIED Routine 10/08/2009 1:20 PM EDT from Last 3 Months or Most Recently Relevant to Health Maintenance Results * Due to [place] [employer] law, this organization might not be sharing sensitive test results. * Chlamydia and Gonorrhoea, Amplified (10/08/2009 1:20 PM EDT) URINE GC AMP PROBE NEGATIVE [facility] Comment: NO NEISSERIA GONORRHOEAE RNA DETECTED IN THIS PATIENT'S SAMPLE. ? (REFERENCE RANGE/NORMAL VALUE: NOT DETECTED) ? NOTE: THIS TEST USES BIOINFORMATICIST MEDIATED AMPLIFICATION METHOD TO DETECT rRNA FROM C.TRACHOMATIS AND N.GONORRHOEAE. A NEGATIVE RESULT DOES NOT PRECLUDE INFECTION WITH C.TRACHOMATIS OR N.GONORRHOEAE BECAUSE RESULTS ARE DEPENDENT ON ADEQUATE SPECIMEN COLLECTION, ABSENCE OF INHIBITORS, AND SUFFICIENT rRNA TO BE DETECTED. THE APTIMA COMBO2 ASSAY IS NOT INTENDED FOR THE EVALUATION OF SUSPECTED SEXUAL ABUSE OR FOR OTHER MEDICO LEGAL INDICATIONS. IS TRUE FOR ALL NON CULTURE METHODS, A POSITIVE SPECIMEN OBTAINED FROM A PATIENT AFTER THERAPEUTIC TREATMENT CANNOT BE INTERPRETED INDICATING THE PRESENCE OF VIABLE C.TRACHOMATIS OR N.GONORRHOEAE. THERAPEUTIC FAILURE OR SUCCESS CANNOT BE DETERMINED WITH THE APTIMA COMBO2 ASSAY SINCE NUCLEIC ACID MAY PERSIST FOLLOWING APPROPRIATE ANTIMICROBIAL THERAPY. A NEGATIVE URINE RESULT FOR A PATIENT WHO IS CLINICALLY SUSPECTED OF HAVING A CHLAMYDIAL OR GONOCOCCAL INFECTION DOES NOT RULE OUT THE PRESENCE OF C.TRACHOMATIS OR N.GONORRHOEAE IN THE UROGENITAL TRACT. TESTING OF AN ENDOCERVICAL(FEMALE) OR URETHRAL(MALE) SPECIMEN IS RECOMMENDED IF THERE IS HIGH CLINICAL SUSPICION OF INFECTION. PRESERVCYT LIQUID PAP AND URINE SAMPLING ARE NOT DESIGNED TO REPLACE CERVICAL EXAMS AND ENDOCERVICAL SAMPLES FOR DIAGNOSIS OF FEMALE UROGENITAL INFECTIONS. PATIENTS MAY HAVE CERVICITIS, URETHRITIS, URINARY TRACT INFECTIONS, OR VAGINAL INFECTIONS DUE TO OTHER CAUSES OR CONCURRENT INFECTIONS WITH OTHER AGENTS. URINE CHLAMYDIA AMP PROBE NEGATIVE [facility] Comment: NO CHLAMYDIA TRACHOMATIS RNA DETECTED IN THIS PATIENT'S SAMPLE. ? (REFERENCE RANGE/NORMAL VALUE: NOT DETECTED) ? 10/08/2009 1:20 PM EDT Narrative [facility] - 10/08/2009 1:20 PM EDT URINE CHLAMYDIA GC AMP PROBE us Brionna Rey MD LAB MICROBIOLOGY - GENERAL O RDERABLES Final Result [facility] [address] [place] [address], [place] from Last 3 Months or Most Recently Relevant to Health Maintenance
== END 2024-05-06 00:01 | disposition home or self-care (01) ==
LOC: HO.LNP
PROVIDERS: Visit Provider Internal Medicine
DX: M54.50 Low back pain, unspecified (principal)
CPT/HCPCS: 81001

== ENCOUNTER 2024-05-30 16:22 | Outpatient (AMB) | payer OTHER, SELFPAY ==
--- NOTE | 2024-05-30 16:26 | MHC.PC.OV ---
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 Required: No Accompanied by: Self / Same As Patient Allergies naproxen [NAPROXEN] Allergy (Unknown, Verified 05/30/24 16:55) RASH, SWOLLEN FEET, rash nitrofurantoin [NITROFURANTOIN] Allergy (Unknown, Verified 05/30/24 16:55) RASH, rash + nausea Medication List - Last Reconciled 05/30/24 by Nico Riley MD acetaminophen (Tylenol Extra Strength) 500 mg PO Q6H PRN amoxicillin 1,000 mg (2 x 500 mg) PO DAILY 9 days cetirizine 10 mg PO DAILY PRN 90 days cholecalciferol (vitamin D3) 1,250 mcg PO QWEEK 3 months cyclobenzaprine 5 mg PO Q8H PRN 5 days diclofenac sodium 1% (Arthritis Pain (diclofenac)) 2 grams topical QID PRN diphenhydramine HCl (Benadryl) 50 mg (2 x 25 mg) PO TID PRN epinephrine 0.3 mL IM ONCE PRN fluticasone propionate 50 mcg/actuation 2 sprays intranasal DAILY PRN 30 days ibuprofen 400 mg PO Q6H PRN lidocaine 5% 1 patch topical DAILY PRN Lubricant Eye Drops 0.5% (carboxymethylcellulose sodium) 2 drps ophthalmic (eye) TID PRN NS mometasone 0.1% 1 appl topical DAILY PRN montelukast 10 mg PO DAILY 30 days multivitamin (Multiple Vitamins tablet) 1 tab PO DAILY 90 days omeprazole 40 mg PO DAILY PRN 90 days Ventolin HFA 90 mcg/actuation (albuterol sulfate) 2 puffs inhalation Q6H PRN NS Tobacco use date assessed: 05/30/24 Dental Screening Dental Screen Date: 05/30/24 Did you have a dental visit in the last 12 months?: Yes Did you have a dental problem in the last 6 months where you did not have access to dental care?: No Was dental information given to patient?: Patient has dentist HPI pe HPI Details Patient comes in today for her annual physical examination States that she feels okay except for increased allergy symptoms lately, especially nasal congestion and recurrent drainage She denies any fever or sore throat She denies any headaches or dizziness Denies any chest pains, no shortness of breath; denies any recent cough No nausea/vomiting, no abdominal pain No change in bowel habits noted She denies any acute urinary symptoms Adds that she continues to experience recurrent neck pain and low back pain but feels that her low back pain has increased significantly lately Needs a few Rx refilled, including her allergy medications Patient states that she is up-to-date with her yearly gynecology exam and pap smear [facility] Medical History Asthma Obesity (BMI 30-39.9) GERD without esophagitis Vitamin D deficiency Allergic rhinitis Migraine NILDA positive Patellofemoral arthralgia of left knee Surgical History History of excision of mass Hx of carpal tunnel repair Pilar cyst Family History Father HTN (hypertension) Mother HTN (hypertension) Brother No problems noted. Brother No problems noted. Brother No problems noted. Sister No problems noted. Social History Housing: House Alcohol intake: never Patient Tobacco Use Status: Former Tobacco user e-Cigarette/Vaping Use: Never Used Second Hand Smoke Exposure: Yes service: No Current occupational status: employed Cognitive needs: No Hearing needs: No Vision needs: Yes Female Reproductive History Menstrual Age of Menarche: 18 Questionnaire PHQ-9 Over the last 2 weeks, how often have you been bothered by any of the following problems? 1. Little interest or pleasure in doing things: several days 2. Feeling down, depressed, or hopeless: not at all 3. Trouble falling or staying asleep, or sleeping too much: not at all 4. Feeling tired or having little energy: not at all 5. Poor appetite or overeating: not at all 6. Feeling bad about yourself - or that you are a failure or have let yourself or your family down: not at all 7. Trouble concentrating on things, such as reading the newspaper or watching television: not at all 8. Moving or speaking so slowly that other people could have noticed. Or the opposite - being so fidgety or restless that you have been moving around a lot more than usual: not at all 9. Thoughts that you would be better off or of hurting yourself in some way: not at all Total score: 1 Depression Screening Interpretation: Negative Depression Screening Done: Yes 31709 - PHQ-9 Billing: Yes Source: Developed by Drs. Frederic Mandel, Eun Kilpatrick, Sherman Espinosa and colleagues, with an educational zev from [employer]. Thrive Questionnaire Date Thrive assessed: 05/30/24 I am a: Patient What is your living situation today?: I have a steady place to live Within the past 12 months, did the food you bought not last and you didn't have the money to get more?: Never true Within the past 12 months, did you worry whether your food would run out before you got money to buy more?: Never true Do you have trouble paying for medicines?: No Do you have trouble getting transportation to medical appointments?: No Do you have trouble paying your heating and electricity bill?: No Do you have trouble taking care of your child, family member or friend?: No Do you have trouble with day-to-day activities such as bathing, preparing meals, shopping, managing finances, etc.?: No Are you currently unemployed and looking for a job?: No Are you interested in more education?: No Please select the resources that you would like help with: None Currently or been in a relationship where the following occur: No concerns reported THRIVE Score: 0 AUDIT C Alcohol Use Questionnaire (AUDIT-C) 1. How often do you have a drink containing alcohol?: Monthly or less 2. How many drinks containing alcohol do you have on a typical day when you are drinking?: 1 or 2 3. How often do you have six or more drinks on one occasion?: Less than monthly Total Score: 2 Score Reviewed/Action Taken: Yes MULU-7 AMB Questionnaire MULU-7 Date MULU - 7 assessed: 05/30/24 Feeling nervous, anxious, or on edge: 0 = Not at all Not being able to stop or control worryin = Not at all Worrying too much about different things: 0 = Not at all Trouble relaxin = Not at all Being so restless that it is hard to sit still: 0 = Not at all Becoming easily annoyed or irritable: 0 = Not at all Feeling afraid as if something awful might happen: 0 = Not at all Total MULU-7 score (0-4 normal; 5-9 mild; 10-14 moderate; 15-21 severe): 0 Source: Developed by Drs. Frederic Mandel, Eun Kilpatrick, Sherman Espinosa and colleagues, with an educational zev from [employer]. Review of Systems Const Denies chills, Denies fatigue, Denies fever(s), Denies headache(s) and Denies malaise Eyes Denies blurry vision, Denies change in vision, Denies irritation and Denies itchy eyes ENT Denies dysphagia, Denies dizziness, Denies otalgia, Denies headache(s), Reports nasal congestion (on and off), Reports nasal discharge (recurrent), Reports neck pain (recurrent), Denies odynophagia, Denies sinus pain and Denies sore throat Card Denies chest pain, Denies rapid heart rate, Denies irregular heart rhythm, Denies palpitations and Denies dyspnea Resp Denies chest congestion, Denies cough, Denies dyspnea and Denies wheezing GI Denies abdominal pain, Denies bloating, Denies constipation, Denies dysphagia, Denies heartburn, Denies diarrhea, Denies nausea, Denies odynophagia and Denies vomiting Denies hematuria, Denies urinary frequency, Denies dysuria, Denies urinary incontinence and Denies urinary urgency Musc Reports back pain (on and off, over the lower back), Reports arthralgias (on and off, involving multiple joints, especially in the L knee), Denies joint swelling, Denies muscle weakness and Reports neck pain (recurrent) Skin/Breast Denies breast pain, Denies breast mass, Denies lesions, Denies rash and Denies unusual bruising Neuro Denies dizziness, Denies headache(s) and Denies paresthesias Psych Denies anxiety and Denies depression Endo Denies fatigue and Denies palpitations Jayson/Lymph Denies easy bruising Aller/Immun Denies itchy eyes and Denies wheezing Physical exam (Primary Care) Vital Signs: Last Vital Signs Pulse 75 05/30/24 16:27 BP 104/68 05/30/24 16:27 Pulse Ox 98 05/30/24 16:27 Oxygen Delivery Method Room Air 05/30/24 16:27 BMI result Body Mass Index 32.1 Tobacco/Smoking Status: Tobacco use Status Tobacco use date assessed 05/30/24 05/30/24 16:31 Patient Tobacco Use Status Former Tobacco user 05/30/24 16:31 e-Cigarette/Vaping Use Never Used 05/30/24 16:31 PHQ-9: PHQ-9 Score PHQ-9: Total score 1 05/30/24 16:54 Depression Screening Interpretation: Negative Thrive Assessment: Date of Thrive Assessment Date Thrive assessed 05/30/24 05/30/24 16:31 Currently or been in a relationship where the following occur: No concerns reported Const General: no acute distress, alert and awake Orientation/consciousness: patient oriented x3 HENMT Head: Yes normocephalic and Yes atraumatic Ears: external ears normal, TM's normal bilaterally and EAC's normal General nose exam: No nasal discharge present Face and sinus: Yes normal facial exam and Yes sinuses nontender Teeth and gingiva: dentition normal Throat: Yes posterior oropharynx normal and Yes tonsils normal (no TP congestion) Eyes Eyelids: Yes eyelids normal Conjunctivae: conjunctivae normal Pupils: Equal, round and reactive pupils present EOM: EOMs intact bilaterally Neck Neck: No lymphadenopathy and Yes tender Thyroid: Thyroid normal Resp Auscultation: clear to auscultation bilaterally, no rales and no wheezes Cardio Rate: regular rate Rhythm: regular rhythm Heart sounds: no murmurs GI Palpation (GI): Soft to palpation, nontender and No hepatosplenomegaly present Auscultation: normal bowel sounds General: Yes no CVA tenderness Back/Spine/Pelvis Back: no CVA tenderness Cervical Spine: cervical muscular tenderness (bilateral; on and off) Thoracic/Lumbar Spine: lumbar spinal tenderness Skin Lesions: no lesions Rashes: no rashes Neuro General: patient oriented x3, moves all extremities, no focal motor deficits and CN's II-XI intact bilaterally Cranial nerves: Yes Equal, round and reactive pupils present Cognition (Neuro): normal cognition Gait exam (Neuro): Normal gait present Extrem General: Yes no clubbing, cyanosis or edema Left lower extremity: knee Details: tenderness Location: of the pre-patellar area and of the infrapatellar area; no swelling Coding Level of Care Code Est Pt Prev Care 18-39y(53548) Diagnoses Annual physical exam Z00.00 Mild intermittent asthma without complication J45.20 Asthma severity: mild Asthma persistence: intermittent Asthma complication type: uncomplicated Allergic rhinitis, unspecified seasonality, unspecified trigger J30.9 Allergic rhinitis trigger: unspecified Allergic rhinitis seasonality: unspecified Vitamin D deficiency E55.9 GERD without esophagitis K21.9 Migraine without status migrainosus, not intractable, unspecified migraine type G43.909 Migraine type: unspecified Status migrainosus presence: without status migrainosus Intractability: not intractable Midline low back pain without sciatica, unspecified chronicity M54.50 Chronicity: unspecified Back pain laterality: midline Sciatica presence: without sciatica Neck pain M54.2 Patellofemoral arthralgia of left knee M25.562 Obesity (BMI 30-39.9) E66.9 Additional Codes PHQ-9 - 05410 - PHQ-9 Billing: Yes ([id number]) Assessment & Plan Assessment & Plan (1) Annual physical exam: Code(s): Z00.00 - Encounter for general adult medical examination without abnormal findings Category: Medical Plan: Check labs Patient states that she is up-to-date with her annual gynecology exam and pap smear (2) Asthma: Code(s): J45.909 - Unspecified asthma, uncomplicated Category: Medical Qualifiers: Asthma severity: mild Asthma persistence: intermittent Asthma complication type: uncomplicated Qualified Code(s): J45.20 - Mild intermittent asthma, uncomplicated Plan: Controlled Continue Montelukast 10 mg Q PM and Ventolin HFA 2 inhalations Q 6 hours PRN (3) Allergic rhinitis: Code(s): J30.9 - Allergic rhinitis, unspecified Category: Medical Qualifiers: Allergic rhinitis trigger: unspecified Allergic rhinitis seasonality: unspecified Qualified Code(s): J30.9 - Allergic rhinitis, unspecified Plan: Continue Cetirizine 10 mg QD PRN and Fluticasone 50 mcg nasal spray QD PRN - Rx refilled (4) Vitamin D deficiency: Code(s): E55.9 - Vitamin D deficiency, unspecified Category: Medical Plan: Continue Vitamin D3 1250 mcg once a week (5) GERD without esophagitis: Code(s): K21.9 - Gastro-esophageal reflux disease without esophagitis Category: Medical Plan: Dietary restrictions reinforced Continue Omeprazole 40 mg QD - patient states that her symptoms are well-controlled as long as she stays on her Rx (6) Migraine: Code(s): G43.909 - Migraine, unspecified, not intractable, without status migrainosus Category: Medical Qualifiers: Migraine type: unspecified Status migrainosus presence: without status migrainosus Intractability: not intractable Qualified Code(s): G43.909 - Migraine, unspecified, not intractable, without status migrainosus Plan: Stable - reinforced avoidance of migraine triggers Continue Ibuprofen 400 mg Q 6 to 8 hours PRN (7) Low back pain: Code(s): M54.50 - Low back pain, unspecified Category: Medical Qualifiers: Chronicity: unspecified Back pain laterality: midline Sciatica presence: without sciatica Qualified Code(s): M54.50 - Low back pain, unspecified Plan: Reinforced activity and weight-lifting restrictions Continue Lidocaine patches 5% QD PRN (Rx refilled) and Ibuprofen 400 mg Q 6 to 8 hours PRN for pain Due to her increasing low back pain lately, will send her for repeat x-rays of the lumbar spine for further evaluation (she has not had any lumbar spine x-rays done in years) (8) Neck pain: Code(s): M54.2 - Cervicalgia Category: Medical Plan: Cervical spine x-rays done in the past came out normal Continue Cyclobenzaprine 5 mg Q HS PRN and Ibuprofen 400 mg Q 6 to 8 hours PRN for pain (9) Patellofemoral arthralgia of left knee: Code(s): M25.562 - Pain in left knee Category: Medical Plan: Continue Tramadol 50 mg TID PRN and Ibuprofen 400 mg Q 6 to 8 hours PRN for pain Follow up with orthopedics as scheduled (10) Obesity (BMI 30-39.9): Code(s): E66.9 - Obesity, unspecified Category: Medical Plan: Reinforced diet/exercise as tolerated/lose weight Plan Follow up in 6 months Orders: Orders Complete Blood Count Auto Diff 05/30/24 D64.9 - Anemia, unspecified, Z00.00 - Encounter for general adult medical examination without abnormal findings TSH reflex Free T4 05/30/24 E78.00 - Pure hypercholesterolemia, unspecified, Z00.00 - Encounter for general adult medical examination without abnormal findings UA CC w/rflx Micro + Cult 05/30/24 R30.0 - Dysuria, Z00.00 - Encounter for general adult medical examination without abnormal findings Vitamin D 25-OH Total 05/30/24 E55.9 - Vitamin D deficiency, unspecified, Z00.00 - Encounter for general adult medical examination without abnormal findings XR lumbar spine 2-3V 05/30/24 M54.50 - Low back pain, unspecified Comprehensive [place]. Panel Fast 05/30/24 E78.00 - Pure hypercholesterolemia, unspecified, Z00.00 - Encounter for general adult medical examination without abnormal findings Lipid Panel 05/30/24 E78.00 - Pure hypercholesterolemia, unspecified, Z00.00 - Encounter for general adult medical examination without abnormal findings Medications: Refilled cetirizine 10 mg PO DAILY 90 days PRN 90 tabs 11RF allergy symptoms fluticasone propionate 50 mcg/actuation administer into each nostril 2 sprays intranasal DAILY 30 days PRN 16 grams 12RF allergy symptoms J30.9 - Allergic rhinitis, unspecified lidocaine 5% leave on most painful area for up to 12 hrs 1 patch topical DAILY PRN 30 ea 3RF pain
[2024-05-30 16:27] VITALS: BP 104/68; PULSE 75; O2SAT 98; BMI 32.1
--- OUTSIDE RECORDS SUMMARY | 2024-05-30 16:39 | XMS_ITS | Clinical Summary ---
Author Organization [facility] Address [address] [place] [address] Care Team Providers Care Matchbook Maker Name Role Phone Unavailable Primary Care Provider Unavailabl e Social History Tobacco Use Types Packs/Day Years Used Date Smoking Tobacco: Never Assessed Comments Unknown Sex and Gender Information Value Date Recorded Sex Assigned at Not on file Legal Sex Female 2:16 AM EST Gender Identity Not on file Sexual Orientation Not on file Plan of Treatment Health Maintenance Due Date Last Done Comments DTaP,Tdap,and Td Vaccines (1 - Tdap) 2010 Hepatitis B Vaccines (1 of 3 - 19+ 3-dose series) 2010 Cervical Cancer Screening: P ap Smear 02/12/2012 COVID-19 Vaccine ( - 2023-2 5 season) 2023 Influenza Vaccine (#1) 2023 [...]
--- OUTSIDE RECORDS SUMMARY | 2024-05-30 16:39 | XMS_ITS | Encounter Summary ---
Author Organization [facility] Address [address] [place] [id number] Phone Care Team Providers Care Grocery Clerk Selling Name Role Phone Brionna Rey MD Primary Care Provider Encounter Details Date Type Department Care Team (Late st Contact Info) Description 11/18/2010 Documentation [facility] [facility] [place] [address] [place] [address] Family Medicine, Physician [address] [place], [place] [id number] Social History Tobacco Use Types Packs/Day Years [...] on filedocumented in this encounter Care Teams Grocery Clerk Selling Relationship Specialty Start Date End Date Brionna Rey MD [address] [place] [address] [place]EPHANIA Banda [id number] PCP - General 11/28/16 07/31/22 documented as of this encounter
--- OUTSIDE RECORDS SUMMARY | 2024-05-30 16:39 | XMS_ITS | Clinical Summary ---
Author Organization [facility] Address [address] [place] [address] Phone Care Team Providers Care Travel Registered Nurse Nicu Name Role Phone Unavailable Primary Care Provider Unavailabl e Immunizations Immunization Administration Dates Next Due DTP 12/29/1995, 4,1991,08/04,1991 [...] complete this topic Procedures * Due to [place] [employer] law, this organization might not be sharing sensitive test results. Procedure Name Priority Date/Time Associated Diagnosis Comments CHLAMYDIA AND GONORRHEA, AMPLIFIED Routine 10/08/2009 1:20 PM EDT from Last 3 Months or Most Recently Relevant to Health Maintenance Results * Due to [place] [employer] law, this organization might not be sharing sensitive test results. * Chlamydia and Gonorrhoea, Amplified (10/08/2009 1:20 PM EDT) URINE GC AMP PROBE NEGATIVE [facility] Comment: NO NEISSERIA GONORRHOEAE RNA DETECTED IN THIS PATIENT'S SAMPLE. ? (REFERENCE RANGE/NORMAL VALUE: NOT DETECTED) ? NOTE: THIS TEST USES FOREST FIREFIGHTER MEDIATED AMPLIFICATION METHOD TO DETECT rRNA FROM [...] OTHER AGENTS. URINE CHLAMYDIA AMP PROBE NEGATIVE [facility] Comment: NO CHLAMYDIA TRACHOMATIS RNA DETECTED IN THIS PATIENT'S SAMPLE. ? (REFERENCE RANGE/NORMAL VALUE: NOT DETECTED) ? 10/08/2009 1:20 PM EDT Narrative [facility] - 10/08/2009 1:20 PM EDT URINE CHLAMYDIA GC AMP PROBE us Brionna Rey MD LAB MICROBIOLOGY - GENERAL O RDERABLES Final Result [facility] [address] [place] [address], [place] from Last 3 Months or Most Recently Relevant to Health Maintenance
== END 2024-05-30 16:54 | disposition home or self-care (01) ==
PROVIDERS: PCP Internal Medicine; Visit Provider Internal Medicine
DX: Z00.00 Encounter for general adult medical examination without abnormal findings (principal); J45.20 Mild intermittent asthma, uncomplicated; E66.9 Obesity, unspecified; Z68.32 Body mass index [BMI] 32.0-32.9, adult; J30.9 Allergic rhinitis, unspecified; E55.9 Vitamin D deficiency, unspecified; K21.9 Gastro-esophageal reflux disease without esophagitis; G43.909 Migraine, unspecified, not intractable, without status migrainosus; M54.50 Low back pain, unspecified; M54.2 Cervicalgia; M25.562 Pain in left knee

== ENCOUNTER → 2024-05-30 16:22 | Outpatient (BNVA) | payer OTHER, SELFPAY | PROVIDERS: PCP Internal Medicine; Visit Provider Internal Medicine | DX: Z00.00 Encounter for general adult medical examination without abnormal findings (principal); J45.20 Mild intermittent asthma, uncomplicated; J30.9 Allergic rhinitis, unspecified; E55.9 Vitamin D deficiency, unspecified; K21.9 Gastro-esophageal reflux disease without esophagitis; G43.909 Migraine, unspecified, not intractable, without status migrainosus; M54.50 Low back pain, unspecified; M54.2 Cervicalgia; M25.562 Pain in left knee; E66.9 Obesity, unspecified | CPT/HCPCS: 96127; 99395 ==

== ENCOUNTER 2024-06-20 16:43 | Outpatient (REF) | payer OTHER, SELFPAY ==
--- NOTE | ~2024-06-20 | XR_ITS ---
EXAMINATION: XR LUMBOSACRAL SPINE CLINICAL INFORMATION: M54.50 - Low back pain, unspecified COMPARISON: None available. TECHNIQUE: Three views of the lumbosacral spine. FINDINGS: There is mild straightening of lumbar lordosis. The vertebral heights, alignment and disc heights are normal. There is no visible acute fracture, dislocation or subluxation seen. The SI joints are symmetrical and normal. The soft tissues are normal. XR/XR lumbar spine 2-3V IMPRESSION: Mild straightening of lumbar lordosis otherwise unremarkable lumbar spine x-rays. Electronically signed by: Magno Singh MD 06/21/2024 10:52 AM DESHAWN
--- OUTSIDE RECORDS SUMMARY | 2024-06-20 19:03 | XMS_ITS | Encounter Summary ---
Author Organization [facility] Address [address] [place] [phone] Phone Care Team Providers Care Handle Bar Assembler Name Role Phone Brionna Rey MD Primary Care Provider Encounter Details Date Type Department Care Team (Late st Contact Info) Description 11/18/2010 Documentation [facility] [place] [facility] Family Medicine [address] [place] [address] Family Medicine, Physician [address] [place], [place] [id number] Social History Tobacco Use Types Packs/Day Years [...] on filedocumented in this encounter Care Teams Handle Bar Assembler Relationship Specialty Start Date End Date Brionna Rey MD [address] [place] [address] ESTEPHANIA Banda [id number] PCP - General 11/28/16 07/31/22 documented as of this encounter
--- OUTSIDE RECORDS SUMMARY | 2024-06-20 19:03 | XMS_ITS | Clinical Summary ---
Author Organization [facility] Address [address] [place] [address] Care Team Providers Care Manager Managed Care Name Role Phone Unavailable Primary Care Provider [...] patient's age to complete this topic Meningococcal B Vacine Aged Out No lo nger eligible based on patient's age to complete [...]
--- OUTSIDE RECORDS SUMMARY | 2024-06-20 19:03 | XMS_ITS | Clinical Summary ---
Author Organization [facility] Address [address] [place] [phone] Phone Care Team Providers Care Big Data Hadoop Developer Name Role Phone Unavailable Primary Care Provider [...] complete this topic Procedures * Due to [place] [employer] law, this organization might not be sharing sensitive test results. Procedure Name Priority Date/Time Associated Diagnosis Comments CHLAMYDIA AND GONORRHEA, AMPLIFIED Routine 10/08/2009 1:20 PM EDT from Last 3 Months or Most Recently Relevant to Health Maintenance Results * Due to [place] [employer] law, this organization might not be sharing sensitive test results. * Chlamydia and Gonorrhoea, Amplified (10/08/2009 1:20 PM EDT) URINE GC AMP PROBE NEGATIVE [facility] Comment: NO NEISSERIA GONORRHOEAE RNA DETECTED IN THIS PATIENT'S SAMPLE. ? (REFERENCE RANGE/NORMAL VALUE: NOT DETECTED) ? NOTE: THIS TEST USES AUTO AP[employer]ENTICE MECHANIC MEDIATED AMPLIFICATION METHOD TO DETECT rRNA FROM [...] OTHER AGENTS. URINE CHLAMYDIA AMP PROBE NEGATIVE [facility] Comment: NO CHLAMYDIA TRACHOMATIS RNA DETECTED IN THIS PATIENT'S SAMPLE. ? (REFERENCE RANGE/NORMAL VALUE: NOT DETECTED) ? 10/08/2009 1:20 PM EDT Narrative [facility] - 10/08/2009 1:20 PM EDT URINE CHLAMYDIA GC AMP PROBE us Brionna Rey MD LAB MICROBIOLOGY - GENERAL O RDERABLES Final Result [facility] [address] [place] [address], [place] from Last 3 Months or Most Recently Relevant to Health Maintenance
== END 2024-06-20 16:44 | disposition home or self-care (01) ==
LOC: HO.XRAY 16:43
PROVIDERS: PCP Internal Medicine; Visit Provider Internal Medicine
DX: M54.50 Low back pain, unspecified (principal)
CPT/HCPCS: 72100

== ENCOUNTER → 2024-06-20 16:47 | Outpatient (BNV) | payer OTHER, SELFPAY | PROVIDERS: PCP Internal Medicine; Visit Provider Radiology Diagnostic Radiology | DX: M54.50 Low back pain, unspecified (principal) | CPT/HCPCS: 72100 ==

== ENCOUNTER 2024-10-25 19:52 | Emergency (ER) | payer OTHER, SELFPAY ==
--- NOTE | ~2024-10-25 | XR_ITS ---
CLINICAL HISTORY: lower back pain 3 views lumbar spine Comparison: X-rays of the lumbar spine from 06/20/2024 Findings: Normal heights of 5 lumbar type vertebrae. No significant listhesis. Redemonstration of the small Schmorl's nodes of the multifocal facet arthropathy. L4 and L5 pars are partly obscured without definite lysis. Posterior elements otherwise unremarkable for radiographs. Sacrum and SI joints are partly obscured. Hips are obscured. Moderate stool burden in the [id number]. IMPRESSION: 1. Degenerative changes include facet arthropathy by radiographs. 2. No acute compression fracture of the 5 lumbar vertebrae. This document has been electronically signed by: Saleem Baez MD on 10/25/2024 20:49:18
[2024-10-25 19:59] VITALS: BP 135/101; PULSE 77; RESP 18; TEMP 36.7; O2SAT 98; BMI 32.2
--- NOTE | 2024-10-25 20:03 | ED_ITS ---
HPI - General Adult General Chief complaint: Back Pain/Injury Stated complaint: Lower back pain Time Seen by Provider: 10/25/24 22:59 Source: patient Mode of arrival: ambulatory Limitations: no limitations History of Present Illness ED Provider: HPI narrative: Patient with history of chronic low back pain comes here for similar pain more on the right side in the lower back no recent trauma patient has had x-ray done prior to my evaluation which showed osteoarthritis no paresthesia no motor weakness no bladder or bowel involvement no recent trauma Related Data Home Medications ?Medication ?Instructions ?Recorded ?Confirmed epinephrine 0.3 mg/0.3 mL 0.3 ml IM ONCE PRN anaphylax is 05/30/24 05/30/24 injection, auto-injector Previous Rx's ?Medication ?Instructions ?Recorded mometasone 0.1 % topical cream 1 appl topical DAILY [place] N skin 05/13/22 irritation/rash #45 grams cholecalciferol (vitamin D3) 1,250 1,250 mcg PO QWEEK 3 months #13 05/22/22 mcg (50,000 unit) capsule caps Lubricant Eye Drops 0.5 % 2 drp ophthalmic (eye) TID P RN dry 06/10/22 (carboxymethylcellulose sodium) eye(s) #15 mL diphenhydramine HCl 25 mg capsule 50 mg (2 x 25 mg) PO TID PRN 06/10/22 (Benadryl) allergic reaction #30 caps montelukast 10 mg tablet 10 mg PO DAILY 30 days #30 t abs 06/18/22 acetaminophen 500 mg tablet 500 mg PO Q6H PRN fever or pain 06/06/23 (Tylenol Extra Strength) #14 tabs cyclobenzaprine 5 mg tablet 5 mg PO Q8H PRN pain (scal e score 06/06/23 7-10) 5 days #14 tabs diclofenac sodium 1 % topical gel 2 g topical QID PRN pain #100 grams 10/14/23 (Arthritis Pain (diclofenac)) amoxicillin 500 mg capsule 1,000 mg (2 x 500 mg) PO DA KAREN 9 02/10/24 days #18 caps cetirizine 10 mg tablet 10 mg PO DAILY PRN allergy 0 05/30/24 symptoms 90 days #90 tabs fluticasone propionate 50 2 spray intranasal DAILY PRN 05/30/24 mcg/actuation nasal allergy symptoms 30 days #16 grams spray,suspension lidocaine 5 % topical patch 1 patch topical DAILY PRN pain #30 05/30/24 ea Ventolin HFA 90 mcg/actuation 2 puff inhalation Q6H WI N 09/13/24 aerosol inhaler (albuterol sulfate) shortness of breat h or wheezing #18 grams multivitamin (Multiple Vitamins 1 tab PO DAILY 90 days #90 tabs 09/13/24 tablet) omeprazole 40 mg capsule,delayed 40 mg PO DAILY PRN he artburn or 09/13/24 release abdominal pain 90 days #90 c aps ibuprofen 400 mg tablet 400 mg PO Q6H PRN pain #90 t abs 09/17/24 tizanidine 4 mg tablet 4 mg PO Q8H PRN muscle spasm s 30 10/14/24 days #90 tabs cyclobenzaprine 10 mg tablet 10 mg PO Q8H #20 tabs 12/12 ibuprofen 600 mg tablet 600 mg PO Q6H PRN fever or p ain 10/25/24 #30 tabs lidocaine 4 % topical patch 1 patch topical DAILY PRN pain #30 10/25/24 ea Allergies Allergy/AdvReac Type Severity Reaction Status Date / Time naproxen (NAPROXEN) Allergy Unknown RASH, Verified 10/25/24 20:02 SWOLLEN FEET, rash nitrofurantoin Allergy Unknown RASH, rash Verified 10/25/24 20:02 (NITROFURANTOIN) + nausea Review of Systems Review of Systems: Yes all other systems are reviewed and are negative PMFSH Past Medical History Medical History Asthma Obesity (BMI 30-39.9) GERD without esophagitis Vitamin D deficiency Allergic rhinitis Migraine NILDA positive Patellofemoral arthralgia of left knee Surgical History History of excision of mass Hx of carpal tunnel repair Pilar cyst Family History Family History Father HTN (hypertension) Mother HTN (hypertension) Brother No problems noted. Brother No problems noted. Brother No problems noted. Sister No problems noted. Social History Social History Housing: House Alcohol intake: never Patient Tobacco Use Status: Former Tobacco user e-Cigarette/Vaping Use: Never Used Second Hand Smoke Exposure: Yes Advance Directives: No Advance Directives Information Provided: No service: No Current occupational status: employed Cognitive needs: No Hearing needs: No Vision needs: Yes Physical Exam ED Vital Signs: Vital Signs - 24 hr 10/25/24 19:59 10/25/24 23:02 Temperature 98.1 F 98 F Pulse Rate 77 71 Respiratory Rate 18 18 Blood Pressure 135/101 H 126/96 H Pulse Oximetry 98 98 Oxygen Delivery Method Room Air Room Air BMI result Body Mass Index 32.2 Appearance: Alert. Oriented X3. No acute distress. Eyes: no pallor or icterus ENT: Pharynx normal Oral Mucosa moist tympanic membrane intact no erythema, Neck: Normal inspection. Neck supple. CVS: Normal heart rate and rhythm. Pulses normal. Respiratory: No respiratory distress. Equal air entry bilateral, no wheezing/rales/rhonchi Abd: soft, not tender Skin: Skin warm and dry. Normal skin color. Normal skin turgor. Back: Diffuse tenderness especially in the right paraspinal lumbar area no CVA tenderness Extremities: No lower extremity edema, no calf tenderness SLR negative bilaterally Neuro: Oriented X 3. Course Course Course Narrative: RME: 33 year female presents to the ED for right-sided lower back pain radiating down leg without any genitourinary symptoms. Patient denies abdominal pain nausea vomiting. Urine spine x-ray ordered Medications Administered Discontinued Medications Generic Name Dose Route Start Last Admin Trade Name Freq PRN Reason Stop Dose Admin Cyclobenzaprine HCl 10 mg 10/25/24 23:22 10/25/24 23:48 Cyclobenzaprine Hcl 10 Mg Tablet PO 10/25/24 23:23 10 mg ONCE ONE Administration Ibuprofen 600 mg 10/25/24 23:22 10/25/24 23:48 Ibuprofen 600 Mg Tablet PO 10/25/24 23:23 600 mg ONCE ONE Administration Lidocaine 1 patch 10/25/24 23:22 10/25/24 23:48 Lidocaine 4 % Patch Adh..Patch TRANSDERMA 10/25/24 23:23 1 patch ONCE ONE Administration Protocol Medical Decision Making Lab Data [facility] Lab Attestation statement: I reviewed the patient's lab results. Labs: Lab Results 10/25/24 Range/Units 20:27 Urine Color Yellow Urine Appearance Cloudy Urine pH 5.5 (5.0-9.0) Ur Specific [place] >= 1.030 H (1.005-1.025) Urine Protein Trace (Neg-Trace) mg/dL Urine Glucose (UA) Negative (Negative) mg/dL Urine Ketones Negative (Negative) mg/dL Urine Blood Trace H (Negative) Urine Nitrite Negative (Negative) Ur Leukocyte Esterase Negative (Negative) Urine RBC 3-5 H (0-2) /HPF Urine WBC 11-20 H (0-5) /HPF Ur Squamous Epith Cells >20 (0-2) /HPF Urine Bacteria 2+ (None Seen) Hyaline Casts 0-2 (0-2) /LPF Urine Test NEGATIVE (NEGATIVE) Independent Interpretation I performed an independent interpretation of an: Plain X-Ray Discharge Plan Discharge Clinical Impression: Chronic low back pain Patient Disposition: Home, Self-Care Instructions: Chronic Back Pain (DC) Additional Instructions: Rest at home Apply Lidoderm patch daily and take muscle relaxant and pain medication as prescribed Follow with the PCP Prescriptions: New cyclobenzaprine 10 mg tablet 10 mg PO Q8H Qty: 20 0RF ibuprofen 600 mg tablet 600 mg PO Q6H PRN (Reason: fever or pain) Qty: 30 0RF lidocaine 4 % adhesive patch,medicated 1 patch topical DAILY PRN (Reason: pain) Qty: 30 0RF No Action mometasone 0.1 % cream 1 appl topical DAILY PRN (Reason: skin irritation/rash) Qty: 45 1RF carboxymethylcellulose sodium [Lubricant Eye Drops] 0.5 % drops 2 drp ophthalmic (eye) TID PRN (Reason: dry eye(s)) Qty: 15 3RF diclofenac sodium [Arthritis Pain (diclofenac)] 1 % gel 2 g topical QID PRN (Reason: pain) Qty: 100 0RF omeprazole 40 mg capsule,delayed release(DR/EC) 40 mg PO DAILY PRN (Reason: heartburn or abdominal pain) 90 Days Qty: 90 3RF albuterol sulfate [Ventolin HFA] 90 mcg/actuation HFA aerosol inhaler 2 puff inhalation Q6H PRN (Reason: shortness of breath or wheezing) Qty: 18 2RF multivitamin [Multiple Vitamins] Tablet 1 tab PO DAILY 90 Days Qty: 90 3RF ibuprofen 400 mg tablet 400 mg PO Q6H PRN (Reason: pain) Qty: 90 1RF Rx Instructions: Take with food tizanidine 4 mg tablet 4 mg PO Q8H PRN (Reason: muscle spasms) 30 Days Qty: 90 0RF diphenhydramine HCl [Benadryl] 25 mg capsule 50 mg PO TID PRN (Reason: allergic reaction) Qty: 30 0RF acetaminophen [Tylenol Extra Strength] 500 mg tablet 500 mg PO Q6H PRN (Reason: fever or pain) Qty: 14 0RF cyclobenzaprine 5 mg tablet 5 mg PO Q8H PRN (Reason: pain (scale score 7-10)) 5 Days Qty: 14 0RF amoxicillin 500 mg capsule 1,000 mg PO DAILY 9 Days Qty: 18 0RF cholecalciferol (vitamin D3) 1,250 mcg (50,000 unit) capsule 1,250 mcg PO QWEEK 90 Days Qty: 13 3RF montelukast 10 mg tablet 10 mg PO DAILY 30 Days Qty: 30 3RF epinephrine 0.3 mg/0.3 mL auto-injector 0.3 ml IM ONCE PRN (Reason: anaphylaxis) cetirizine 10 mg tablet 10 mg PO DAILY PRN (Reason: allergy symptoms) 90 Days Qty: 90 11RF fluticasone propionate 50 mcg/actuation spray,suspension 2 spray intranasal DAILY PRN (Reason: allergy symptoms) 30 Days Qty: 16 12RF Rx Instructions: administer into each nostril lidocaine 5 % adhesive patch,medicated 1 patch topical DAILY PRN (Reason: pain) Qty: 30 3RF Rx Instructions: leave on most painful area for up to 12 hrs Discharge Date/Time: 10/26/24 05:08 Print Language: Luxembourgish
[2024-10-25 20:55] LABS: Appearance Urine Cloudy; Glucose Urine UA Negative (Negative); PH 5.5 (5.0-9.0); Specific Gravity - Urine >= 1.030 (1.005-1.025); UMIC TRIGGER UACC YES
[2024-10-25 20:57] LABS: UPreg QC Valid YES
[2024-10-25 21:08] LABS: UACC Culture Trigger YES
[2024-10-25 23:02] VITALS: BP 126/96; PULSE 71; RESP 18; TEMP 36.6; O2SAT 98
[2024-10-25] MEDS: Lidocaine 4 % Patch ADH..PATCH 1 PATCH TRANSDERMA (23:48)
== END 2024-10-26 05:08 | disposition home or self-care (01) ==
PROVIDERS: Physician Assistant; Emergency Provider Internal Medicine; PCP Internal Medicine
DX: G89.29 Other chronic pain (principal); M54.50 Low back pain, unspecified
CPT/HCPCS: 72100; 81001; 81025; 87086; 99283

== ENCOUNTER → 2024-10-25 20:02 | Outpatient (BNV) | payer OTHER, SELFPAY | PROVIDERS: PCP Internal Medicine; Visit Provider Radiology Neuroradiology | DX: M47.816 Spondylosis without myelopathy or radiculopathy, lumbar region (principal) | CPT/HCPCS: 72100 ==

== ENCOUNTER 2025-02-07 15:10 | Outpatient (RCR) | payer OTHER, SELFPAY ==
--- NOTE | 2025-02-07 16:16 | MHC.PT.EP ---
[facility] [place] Office [place] Office [employer] Office [address] [place] [address] [phone] F: [phone] F: [phone] F: [phone] F: [phone] Physical Therapy Plan of Care Date of Evaluation: 02/07/25 Date of Surgery: N/A Diagnosis: low back pain (RL) Assessment: pt is a 34 y/o female presenting to physical therapy w/ referring diagnosis of low back pain. Impairments include pain, decreased range of motion, decreased strength, impaired functional mobility, impaired postural awareness, and altered ambulation mechanics. pt is a good candidate for skilled PT due to age, potential remediation of impairments, typical disease/condition progression and prognosis, comorbidities, and motivation. pt would benefit from skilled PT intervention to provide a tailored strengthening and stretching exercise program, functional training, gait training, postural re-training, neuromuscular re-education, modalities as needed for pain, equipment safety demonstration. Frequency and Duration: The patient will be seen 2x/wk for 4 wks Short Term Goals: pt will be I w/ HEP to promote self-management of condition. pt will demo proper sitting posture w/ lumbar roll to promote neutral spine w/ seated ADLs. 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 pt will improve lumbar extension AROM to at least 25% to promote ease in overhead lifting. Treatment Plan: Modalities to reduce pain, spasms and effusion. Manual therapy to restore motion and function. Therapeutic exercise to improve strength and flexibility. Neuromuscular re-education for posture and balance. Therapeutic activities to return to functional activities of daily living. Electronically signed by: Bibi Pride PT, DPT Please sign and return to therapist. Thank you for your referral.
--- NOTE | 2025-02-24 08:16 | MHC.PT.DC ---
[facility] [place] Office [place] Office [place] Office [address] 140 [facility] [phone] F: [phone] F: [phone] F: [phone] F: [phone] Physical Therapy Discharge Report Diagnosis: low back pain (RL) Date of Surgery: N/A Date of Evaluation: 02/07/25 Date of Discharge: 02/24/25 Treatments to Date: 1 Cancellations to Date: 1 No Shows to Date: 2 Discharge Status: Visit Non-compliance Discharge Summary: The patient has failed to comply with the attendance policy of [facility]. She is discharged at this time. Electronically signed by: Bibi Pride PT, DPT Please sign and return to therapist. Thank you for your referral.
== END 2025-02-24 08:17 | disposition home or self-care (01) ==
LOC: HO.PT 15:10
PROVIDERS: PCP Internal Medicine; Visit Provider Internal Medicine
DX: M54.50 Low back pain, unspecified (principal)
CPT/HCPCS: 97161; 97535

== ENCOUNTER 2025-02-21 18:42 | Emergency (ER) | payer OTHER, SELFPAY ==
--- NOTE | ~2025-02-21 | XR_ITS ---
CLINICAL HISTORY: cough 1 view chest x-ray Comparison: CR/SR - XR CHEST 2 VIEWS - 09/29/22 18:51 EDT Findings: No consolidation or effusion. Heart size is normal. No acute fracture. IMPRESSION: 1. No acute findings. This document has been electronically signed by: Ruth Webster MD on 02/21/2025 23:50:39
[2025-02-21 18:48] VITALS: BP 150/100; PULSE 80; RESP 20; TEMP 36.9; O2SAT 98; BMI 33.6
--- NOTE | 2025-02-21 18:48 | ED_ITS ---
HPI - General Adult General Chief complaint: Upper Respiratory Symptoms Stated complaint: Abd pain, headache, throat pain, bodyaches Time Seen by Provider: 02/21/25 22:55 Source: patient Limitations: no limitations History of Present Illness ED Provider: Kaitlynn Catalan PA-C HPI narrative: 35-year-old female with a history of asthma, who currently vapes, presents with viral syndrome x3 days. Associated dry repetitive cough, wheezing, sore throat, myalgias, and chills. Denies known fever. Related Data Home Medications ?Medication ?Instructions ?Recorded ?Confirmed epinephrine 0.3 mg/0.3 mL 0.3 ml IM ONCE PRN anaphylax is 05/30/24 05/30/24 injection, auto-injector Previous Rx's ?Medication ?Instructions ?Recorded mometasone 0.1 % topical cream 1 appl topical DAILY MI N skin 05/13/22 irritation/rash #45 grams cholecalciferol (vitamin D3) 1,250 1,250 mcg PO QWEEK 3 months #13 05/22/22 mcg (50,000 unit) capsule caps Lubricant Eye Drops 0.5 % 2 drp ophthalmic (eye) TID P RN dry 06/10/22 (carboxymethylcellulose sodium) eye(s) #15 mL diphenhydramine HCl 25 mg capsule 50 mg (2 x 25 mg) PO TID PRN 06/10/22 (Benadryl) allergic reaction #30 caps montelukast 10 mg tablet 10 mg PO DAILY 30 days #30 t abs 06/18/22 acetaminophen 500 mg tablet 500 mg PO Q6H PRN fever or pain 06/06/23 (Tylenol Extra Strength) #14 tabs cyclobenzaprine 5 mg tablet 5 mg PO Q8H PRN pain (scal e score 06/06/23 7-10) 5 days #14 tabs diclofenac sodium 1 % topical gel 2 g topical QID PRN pain #100 grams 10/14/23 (Arthritis Pain (diclofenac)) amoxicillin 500 mg capsule 1,000 mg (2 x 500 mg) PO DA KAREN 9 02/10/24 days #18 caps fluticasone propionate 50 2 spray intranasal DAILY PRN 05/30/24 mcg/actuation nasal allergy symptoms 30 days #16 grams spray,suspension lidocaine 5 % topical patch 1 patch topical DAILY PRN pain #30 05/30/24 ea Ventolin HFA 90 mcg/actuation 2 puff inhalation Q6H MI N 09/13/24 aerosol inhaler (albuterol sulfate) shortness of breat h or wheezing #18 grams multivitamin (Multiple Vitamins 1 tab PO DAILY 90 days #90 tabs 09/13/24 tablet) omeprazole 40 mg capsule,delayed 40 mg PO DAILY PRN he artburn or 09/13/24 release abdominal pain 90 days #90 c aps ibuprofen 400 mg tablet 400 mg PO Q6H PRN pain #90 t abs 09/17/24 tizanidine 4 mg tablet 4 mg PO Q8H PRN muscle spasm s 30 10/14/24 days #90 tabs cyclobenzaprine 10 mg tablet 10 mg PO Q8H #20 tabs 12/12 ibuprofen 600 mg tablet 600 mg PO Q6H PRN fever or p ain 10/25/24 #30 tabs lidocaine 4 % topical patch 1 patch topical DAILY PRN pain #30 10/25/24 ea cetirizine 10 mg tablet 10 mg PO DAILY PRN allergy 0 01/05/25 symptoms 90 days #90 tabs olopatadine 0.2 % eye drops 1 drp ophthalmic (eye) KEV LY PRN 01/05/25 itching/allergy #5 mL albuterol sulfate 90 mcg/actuation 2 puff inhalation Q 4-6H PRN 02/22/25 aerosol inhaler (Ventolin HFA) shortness of breath or wheezing #6.7 grams azithromycin 250 mg tablet 250 mg PO DAILY 4 days #4 t abs 02/22/25 prednisone 20 mg tablet 40 mg (2 x 20 mg) PO DAILY # 8 tabs 02/22/25 Allergies Allergy/AdvReac Type Severity Reaction Status Date / Time naproxen (NAPROXEN) Allergy Unknown RASH, Verified 02/21/25 18:51 SWOLLEN FEET, rash nitrofurantoin Allergy Unknown RASH, rash Verified 02/21/25 18:51 (NITROFURANTOIN) + nausea Review of Systems Review of Systems: Yes all other systems are reviewed and are negative Constitutional: Constitutional: Reports chills, Denies fatigue, Denies fever(s) and Reports malaise ENT: Reports sore throat Cardiovascular: Cardiovascular: Denies chest pain and Reports dyspnea Respiratory: Respiratory: Reports cough, Reports dyspnea and Reports wheezing Musculoskeletal: Musculoskeletal: Reports myalgias Endocrine: Endocrine: Denies fatigue Allergic/Immunologic: Allergic/Immunologic: Reports wheezing PMFSH Past Medical History Attestation statement: The following information was validated with the patient. Medical History Asthma Obesity (BMI 30-39.9) GERD without esophagitis Vitamin D deficiency Allergic rhinitis Migraine NILDA positive Patellofemoral arthralgia of left knee Surgical History History of excision of mass Hx of carpal tunnel repair Pilar cyst Family History Family History Father HTN (hypertension) Mother HTN (hypertension) Brother No problems noted. Brother No problems noted. Brother No problems noted. Sister No problems noted. Social History Social History Housing: House Alcohol intake: never Patient Tobacco Use Status: Former Tobacco user e-Cigarette/Vaping Use: Never Used Second Hand Smoke Exposure: Yes Advance Directives: No Advance Directives Information Provided: No Do you have a plan to hurt others: No Plan service: No Current occupational status: employed Cognitive needs: No Hearing needs: No Vision needs: Yes Physical Exam ED Vital Signs: Vital Signs - 24 hr 02/21/25 18:48 02/21/25 22:19 Temperature 98.4 F 98.4 F Pulse Rate 80 73 Respiratory Rate 20 16 Blood Pressure 150/100 H 150/100 H Pulse Oximetry 98 98 Oxygen Delivery Method Room Air Room Air BMI result Body Mass Index 33.6 Const Other: Alert well-appearing Orientation/consciousness: patient oriented x3 HENMT Other: Opiate erythematous without exudate, tonsils subtly swollen, uvula midline no sublingual fluctuance no swelling inferior to the jawline Resp Other: No wheezing, active bronchospasm cough Effort & Inspection: normal respiratory effort Cardio Other: Normal peripheral perfusion Skin Other: Warm dry no rash Neuro General: patient oriented x3, gait normal, no focal motor deficits and CN's II- XI intact bilaterally Psych Other: Cooperative Course Course Course Narrative: This is a rapid medical exam performed by Katina Kang NP: Additional HPI, ROS, PE not included below will be deferred to primary provider. Patient is a 35y/o F presenting with 3 days of sore throat, chills, body aches, headache and cough. Plan: strep and viral swabs Medications Administered Discontinued Medications Generic Name Dose Route Start Last Admin Trade Name Frank PRN Reason Stop Dose Admin Albuterol Sulfate 7.5 mg 02/21/25 23:10 02/21/25 23:41 Albuterol Sulfate (0.083%) 2.5 Mg/3 Ml Vial.Neb INHALE 02/21/25 23:11 7.5 mg ONCE ONE Administration Azithromycin 500 mg 02/21/25 23:10 02/21/25 23:18 Azithromycin 500 Mg Tablet PO 02/21/25 23:11 500 mg ONCE ONE Administration Ketorolac Tromethamine 15 mg 02/21/25 23:11 02/21/25 23:18 Ketorolac Tromethamine 15 Mg/Ml Vial IM 02/21/25 23:12 15 mg ONCE ONE Administration Prednisone 40 mg 02/21/25 23:10 02/21/25 23:18 Prednisone 20 Mg Tablet PO 02/21/25 23:11 40 mg ONCE ONE Administration Medical Decision Making Medical Decision Making [facility] Narrative: 35-year-old female with a history of asthma, who currently vapes, presents with viral syndrome x3 days. Associated dry repetitive cough, wheezing, sore throat, myalgias, and chills. Denies known fever. Problem: Asthma, vapes History: Per patient I have considered the following differential diagnoses: Asthma exacerbation, bronchitis, pneumonia, viral syndrome, strep pharyngitis, RPA, BED CONTROL SPECIALIST Plan: Viral panel ordered from triage I am adding on a chest x-ray. We will be treating the patient for bronchitis and her viral pharyngitis. There were no exam findings consistent with a RPA or BED CONTROL SPECIALIST. Adding on a Z-Kenyon secondary to her vaping history. Giving an updraft and steroid. I independently reviewed the following tests: Labs: Viral panel negative strep screen neg Chest x-ray:Findings: No consolidation or effusion. Heart size is normal. No acute fracture. IMPRESSION: 1. No acute findings. Differential Diagnosis Differential Diagnoses: The differential diagnosis associated with the presentation includes See medical decision-making Admission/Observation Consideration of admission/observation: Escalation of care including admission/observation considered Not applicable Lab Data [facility] Lab Attestation statement: I reviewed the patient's lab results. Labs: Lab Results 02/21/25 Range/Units 19:37 COVID-19 ([facility]) Negative (Negative) COVID-19 Clin Com See Note Influenza Type A ([facility]) Negative (Negative) Influenza Type B ([facility]) Negative (Negative) Influenza A & B Note See Note S. pyogenes GrpA [facility] Negative (Negative) Radiology Impression Discussion of test interpretation with radiology: I have reviewed the radiologist's reading. Discharge Plan Discharge Clinical Impression: Pharyngitis with viral syndrome, Bronchitis Patient Disposition: Home, Self-Care Instructions: Pharyngitis (ED), Acute Bronchitis (ED), Viral Syndrome (ED) Additional Instructions: You are being treated for viral syndrome with sore throat and bronchitis. See home care instructions. Warm saltwater gargles can help throat pain. You can also use [id number] ibuprofen 600 mg taken every 6 hours with food. The steroid you are taking for your bronchitis we will help alleviate the swelling as well. You were tested for COVID and influenza, the viral panel was negative. You were also tested for strep throat, the screening was negative. The chest x-ray is clear you do not have pneumonia. Take the azithromycin as directed complete the course of this antibiotic, this is for your bronchitis. Take the steroid as directed, use your home inhalers as needed for repetitive bron chospasm and wheezing. Follow up with your primary care provider as needed. Prescriptions: New azithromycin 250 mg tablet 250 mg PO DAILY 4 Days Qty: 4 0RF Rx Instructions: start on day 2 of therapy prednisone 20 mg tablet 40 mg PO DAILY Qty: 8 0RF albuterol sulfate [Ventolin HFA] 90 mcg/actuation HFA aerosol inhaler 2 puff inhalation Q4-6H PRN (Reason: shortness of breath or wheezing) Qty: 6.7 0RF No Action mometasone 0.1 % cream 1 appl topical DAILY PRN (Reason: skin irritation/rash) Qty: 45 1RF carboxymethylcellulose sodium [Lubricant Eye Drops] 0.5 % drops 2 drp ophthalmic (eye) TID PRN (Reason: dry eye(s)) Qty: 15 3RF diclofenac sodium [Arthritis Pain (diclofenac)] 1 % gel 2 g topical QID PRN (Reason: pain) Qty: 100 0RF omeprazole 40 mg capsule,delayed release(DR/EC) 40 mg PO DAILY PRN (Reason: heartburn or abdominal pain) 90 Days Qty: 90 3RF albuterol sulfate [Ventolin HFA] 90 mcg/actuation HFA aerosol inhaler 2 puff inhalation Q6H PRN (Reason: shortness of breath or wheezing) Qty: 18 2 RF multivitamin [Multiple Vitamins] Tablet 1 tab PO DAILY 90 Days Qty: 90 3RF ibuprofen 400 mg tablet 400 mg PO Q6H PRN (Reason: pain) Qty: 90 1RF Rx Instructions: Take with food tizanidine 4 mg tablet 4 mg PO Q8H PRN (Reason: muscle spasms) 30 Days Qty: 90 0RF cetirizine 10 mg tablet 10 mg PO DAILY PRN (Reason: allergy symptoms) 90 Days Qty: 90 11RF olopatadine 0.2 % drops 1 drp ophthalmic (eye) DAILY PRN (Reason: itching/allergy) Qty: 5 0RF Rx Instructions: Apply to BOTH eyes diphenhydramine HCl [Benadryl] 25 mg capsule 50 mg PO TID PRN (Reason: allergic reaction) Qty: 30 0RF acetaminophen [Tylenol Extra Strength] 500 mg tablet 500 mg PO Q6H PRN (Reason: fever or pain) Qty: 14 0RF cyclobenzaprine 5 mg tablet 5 mg PO Q8H PRN (Reason: pain (scale score 7-10)) 5 Days Qty: 14 0RF cyclobenzaprine 10 mg tablet 10 mg PO Q8H Qty: 20 0RF ibuprofen 600 mg tablet 600 mg PO Q6H PRN (Reason: fever or pain) Qty: 30 0RF lidocaine 4 % adhesive patch,medicated 1 patch topical DAILY PRN (Reason: pain) Qty: 30 0RF amoxicillin 500 mg capsule 1,000 mg PO DAILY 9 Days Qty: 18 0RF cholecalciferol (vitamin D3) 1,250 mcg (50,000 unit) capsule 1,250 mcg PO QWEEK 90 Days Qty: 13 3RF montelukast 10 mg tablet 10 mg PO DAILY 30 Days Qty: 30 3RF epinephrine 0.3 mg/0.3 mL auto-injector 0.3 ml IM ONCE PRN (Reason: anaphylaxis) fluticasone propionate 50 mcg/actuation spray,suspension 2 spray intranasal DAILY PRN (Reason: allergy symptoms) 30 Days Qty: 16 12RF Rx Instructions: administer into each nostril lidocaine 5 % adhesive patch,medicated 1 patch topical DAILY PRN (Reason: pain) Qty: 30 3RF Rx Instructions: leave on most painful area for up to 12 hrs Stand Alone Forms: Work/School Release Print Language: Tamazight
[2025-02-21 20:02] LABS: IDNOW Serial# 16C4AD1C; Strep A Nucleic Acid Negative (Negative)
[2025-02-21 20:11] LABS: COVID-19 Test Negative (Negative); IDNOW Serial# 55D5AD1C
[2025-02-21 20:12] LABS: IDNOW Serial# 58CA691E; Influenza B2 Negative (Negative)
[2025-02-21 22:19] VITALS: BP 150/100; PULSE 73; RESP 16; TEMP 36.9; O2SAT 98
--- OUTSIDE RECORDS SUMMARY | 2025-02-21 22:21 | XMS_ITS | Encounter Summary ---
Author Organization [facility] Address [address] [place] [phone] Phone Care Team Providers Care Apprentice Carpenter Name Role Phone Brionna Rey MD Primary Care Provider [phone] Encounter Details Date Type Department Care Team (Late st Contact Info) Description 11/18/2010 Documentation [facility] [address] [place] [address] Family Medicine, Physician [address] [place], [place] [id number] Social History Tobacco Use Types Packs/Day Years [...] on filedocumented in this encounter Care Teams Apprentice Carpenter Relationship Specialty Start Date End Date Brionna Rey MD [address] [place] [address] [place] Banda [id number] PCP - General 11/28/16 07/31/22 documented as of this encounter
--- OUTSIDE RECORDS SUMMARY | 2025-02-21 22:21 | XMS_ITS | Clinical Summary ---
Author Organization [facility] Address [address] [place] [address] Care Team Providers Care Donor Center Technician Name Role Phone Unavailable Primary Care Provider [...] Cervical Cancer Screening: P ap Smear 02/12/2012 HPV Vaccines (1 - 3-dose SCD M series) 2018 Depression Screening 04/20/2024 COVID-19 Vaccine ( - 2023-2 5 season) 2024 Influenza Vaccine (#1) 2024 RSV Immunization Adult Patie nts (1 - 1-dose 75+ series) 2066 HIB Vaccines Aged Out No longer eligi [...] age to complete this topic Meningococcal B Vaccine Aged Out No l onger eligible based on patient's age to complete this topic Pneumococcal Vaccine: Pediat rics (0 to 5 Years) and At-Risk Patients (6 to 49 Years) Aged Out No longer eligible b ased on patient's age to complete this topic RSV Immunization Patients Un ari 20 months Aged Out No longer eligible b ased on patient's age to complete this topic Varicella Vaccines Aged Out No longer eligible based on patient's age to complete this topic
--- OUTSIDE RECORDS SUMMARY | 2025-02-21 22:21 | XMS_ITS | Clinical Summary ---
Author Organization [facility] Address [address] [place] [phone] Phone Care Team Providers Care Energy Consultant Name Role Phone Unavailable Primary Care Provider [...] AM EDT Pulse - - Temperature 37.1 C (98.7 F) 07/02/2012 12:00 AM EDT Respiratory Rate - - Oxygen Saturation - [...] 12/29/1995, Additional history exists Influenza Vaccines (#1) 2024 COVID-19 Vaccine ( - 2024- season) 2024 HIB Vaccines Completed 07/23/1992, 09/19, 1991, Additional [...] this topic Procedures * Due to [place] VGBio law, this organization might not be sharing sensitive test results. Procedure Name Priority Date/Time Associated Diagnosis Comments CHLAMYDIA AND GONORRHEA, AMPLIFIED Routine 10/08/2009 1:20 PM EDT from Last 3 Months or Most Recently Relevant to Health Maintenance Results * Due to [place] VGBio law, this organization might not be sharing sensitive test results. * Chlamydia and Gonorrhoea, Amplified (10/08/2009 1:20 PM EDT) URINE GC AMP PROBE NEGATIVE [facility] Comment: NO NEISSERIA GONORRHOEAE RNA DETECTED IN THIS PATIENT'S SAMPLE. (REFERENCE RANGE/NORMAL VALUE: NOT DETECTED) NOTE: THIS TEST USES PROFESSOR CRIMINAL JUSTICE MEDIATED AMPLIFICATION METHOD TO DETECT rRNA FROM [...] OTHER AGENTS. URINE CHLAMYDIA AMP PROBE NEGATIVE [facility] Comment: NO CHLAMYDIA TRACHOMATIS RNA DETECTED IN THIS PATIENT'S SAMPLE. (REFERENCE RANGE/NORMAL VALUE: NOT DETECTED) 10/08/2009 1:20 PM EDT Narrative [facility] - 10/08/2009 1:20 PM EDT URINE CHLAMYDIA GC AMP PROBE us Brionna Rey MD LAB MICROBIOLOGY - GENERAL O RDERABLES Final Result [facility] [address] [place] [address], [place] from Last 3 Months or Most Recently Relevant to Health Maintenance
[2025-02-21] MEDS: Albuterol Sulfate (0.083%) 2.5 MG/3 ML VIAL.NEB 7.5 MG INHALE (23:41)
[2025-02-22 00:42] VITALS: BP 148/89; PULSE 98; RESP 20; TEMP 36.6; O2SAT 99
[2025-02-22 00:48] VITALS: BP 148/89; PULSE 98; RESP 20; TEMP 36.6; O2SAT 99
== END 2025-02-22 00:49 | disposition home or self-care (01) ==
PROVIDERS: Registered Nurse Emergency; Emergency Provider Emergency Medicine; PCP Internal Medicine
DX: B34.9 Viral infection, unspecified (principal); J02.9 Acute pharyngitis, unspecified; J45.909 Unspecified asthma, uncomplicated; F17.290 Nicotine dependence, other tobacco product, uncomplicated; Z88.6 Allergy status to analgesic agent
CPT/HCPCS: 71045; 87502; 87635; 87651; 96372; 99284; J1885

== ENCOUNTER → 2025-02-21 23:10 | Outpatient (BNV) | payer OTHER, SELFPAY | PROVIDERS: Emergency Provider Emergency Medicine; PCP Internal Medicine; Visit Provider Radiology Diagnostic Radiology | DX: R05.9 Cough, unspecified (principal) | CPT/HCPCS: 71045 ==

== ENCOUNTER 2025-03-14 14:15 | Outpatient (AMB) | payer OTHER, SELFPAY ==
[2025-03-14 14:23] VITALS: BP 122/90; PULSE 72; O2SAT 99; BMI 33.7
--- NOTE | 2025-03-14 14:23 | A.OFFPC_ITS ---
Vital Signs 03/14/25 14:23 Height 5 ft 2 in Weight 184 lb 2 oz BMI 33.7 BP 122/90 H Blood Pressure Location Lt brachial Position Sitting Pulse 72 Pulse Source Pulse Oximeter Pulse Oximetry (%) 99 Oxygen Delivery Method Room Air Intake Visit Reasons: 6 Months f/u Soft Metals Hand Engraver Required: No Accompanied by: Self / Same As Patient Allergies naproxen (NAPROXEN) Allergy (Unknown, Verified 03/14/25 14:59) RASH, SWOLLEN FEET, rash nitrofurantoin (NITROFURANTOIN) Allergy (Unknown, Verified 03/14/25 14:59) RASH, rash + nausea Medication List - Last Reconciled 03/14/25 by Nico Riley MD acetaminophen (Tylenol Extra Strength) 500 mg PO Q6H PRN albuterol sulfate 90 mcg/actuation (Ventolin HFA) 2 puffs inhalation Q4-6H PRN cetirizine 10 mg PO DAILY PRN 90 days cholecalciferol (vitamin D3) 1,250 mcg PO QWEEK 3 months cyclobenzaprine 10 mg PO Q8H diclofenac sodium 1% (Arthritis Pain (diclofenac)) 2 grams topical QID PRN diphenhydramine HCl (Benadryl) 50 mg (2 x 25 mg) PO TID PRN epinephrine 0.3 mL IM ONCE PRN fluticasone propionate 50 mcg/actuation 2 sprays intranasal DAILY PRN 30 days ibuprofen 600 mg PO Q6H PRN lidocaine 4% 1 patch topical DAILY PRN Lubricant Eye Drops 0.5% (carboxymethylcellulose sodium) 2 drps ophthalmic (eye) TID PRN NS mometasone 0.1% 1 appl topical DAILY PRN montelukast 10 mg PO DAILY 30 days multivitamin (Multiple Vitamins tablet) 1 tab PO DAILY 90 days olopatadine 0.2% 1 drp ophthalmic (eye) DAILY PRN omeprazole 40 mg PO DAILY PRN 90 days tizanidine 4 mg PO Q8H PRN 30 days Ventolin HFA 90 mcg/actuation (albuterol sulfate) 2 puffs inhalation Q6H PRN NS Tobacco use date assessed: 03/14/25 Dental Screening Dental Screen Date: 03/14/25 Did you have a dental visit in the last 12 months?: Yes Did you have a dental problem in the last 6 months where you did not have access to dental care?: No Was dental information given to patient?: Patient has dentist HPI 6 Months f/u HPI Details Patient comes in today for her follow up visit She recently went to the ER for increased cough and congestion and was diagnosed with bronchitis - she reports feeling much better now after finishing a course of antibiotics. Recent tests for COVID, flu and strep were negative. The patient reports ongoing/recurrent issues with allergies, including increased nasal congestion and recurrent headaches. Current allergy management includes Cetirizine, Flonase, and Benadryl as needed The patient also reports (+) persistent low back pain, for which a prior referral to physical therapy was made but had to be canceled due to illness. X-rays of the lumbar spine done back in June 2024 came back normal but more recent lumbar x-rays in October 2024 revealed (+) degenerative changes include facet arthropathy by radiographs. There are no acute compression fracture of the 5 lumbar vertebrae. The patient reports getting a lot of headaches lately and had a head CT scan about two years ago that came back normal She denies any dizziness Denies any chest pains No nausea/vomiting, no abdominal pain No change in bowel habits noted She has no follow up labs done recently The patient has never had a flu shot and expressed concern about getting sick from it. [facility] Medical History Asthma Obesity (BMI 30-39.9) GERD without esophagitis Vitamin D deficiency Allergic rhinitis Migraine NILDA positive Patellofemoral arthralgia of left knee Surgical History History of excision of mass Hx of carpal tunnel repair Pilar cyst Family History Father HTN (hypertension) Mother HTN (hypertension) Brother No problems noted. Brother No problems noted. Brother No problems noted. Sister No problems noted. Social History Housing: House Alcohol intake: never Patient Tobacco Use Status: Former Tobacco user e-Cigarette/Vaping Use: Never Used Second Hand Smoke Exposure: Yes service: No Current occupational status: employed Cognitive needs: No Hearing needs: No Vision needs: Yes Female Reproductive History Menstrual Age of Menarche: 18 Questionnaire PHQ-9 Over the last 2 weeks, how often have you been bothered by any of the following problems? 1. Little interest or pleasure in doing things: several days 2. Feeling down, depressed, or hopeless: not at all 3. Trouble falling or staying asleep, or sleeping too much: not at all 4. Feeling tired or having little energy: not at all 5. Poor appetite or overeating: not at all 6. Feeling bad about yourself - or that you are a failure or have let yourself or your family down: not at all 7. Trouble concentrating on things, such as reading the newspaper or watching television: not at all 8. Moving or speaking so slowly that other people could have noticed. Or the opposite - being so fidgety or restless that you have been moving around a lot more than usual: not at all 9. Thoughts that you would be better off or of hurting yourself in some way: not at all Total score: 1 Depression Screening Interpretation: Negative Depression Screening Done: Yes 10095 - PHQ-9 Billing: Yes Source: Developed by Drs. Frederic Mandel, Eun Kilpatrick, Sherman Espinosa and colleagues, with an educational zev from [employer]. Thrive Questionnaire Date Thrive assessed: 03/14/25 I am a: Patient What is your living situation today?: I have a steady place to live Within the past 12 months, did the food you bought not last and you didn't have the money to get more?: Never true Within the past 12 months, did you worry whether your food would run out before you got money to buy more?: Never true Do you have trouble paying for medicines?: No Do you have trouble getting transportation to medical appointments?: No Do you have trouble paying your heating and electricity bill?: No Do you have trouble taking care of your child, family member or friend?: No Do you have trouble with day-to-day activities such as bathing, preparing meals, shopping, managing finances, etc.?: No Are you currently unemployed and looking for a job?: No Are you interested in more education?: No Please select the resources that you would like help with: None Currently or been in a relationship where the following occur: No concerns reported THRIVE Score: 0 AUDIT C Alcohol Use Questionnaire (AUDIT-C) 1. How often do you have a drink containing alcohol?: Monthly or less 2. How many drinks containing alcohol do you have on a typical day when you are drinking?: 1 or 2 3. How often do you have six or more drinks on one occasion?: Less than monthly Total Score: 2 Score Reviewed/Action Taken: Yes MULU-7 AMB Questionnaire MULU-7 Date MULU - 7 assessed: 03/14/25 Feeling nervous, anxious, or on edge: 0 = Not at all Not being able to stop or control worryin = Not at all Worrying too much about different things: 0 = Not at all Trouble relaxin = Not at all Being so restless that it is hard to sit still: 0 = Not at all Becoming easily annoyed or irritable: 0 = Not at all Feeling afraid as if something awful might happen: 0 = Not at all Total MULU-7 score (0-4 normal; 5-9 mild; 10-14 moderate; 15-21 severe): 0 Source: Developed by Drs. Frederic Mandel, Eun Kilpatrick, Sherman Espinosa and colleagues, with an educational zev from [employer]. Review of Systems Const Denies chills, Denies fatigue, Denies fever(s) and Reports headache(s) (recurrent) ENT Denies dysphagia, Denies dizziness, Denies otalgia, Reports headache(s) (recurrent), Reports nasal congestion (on and off), Reports neck pain (recurrent ), Denies odynophagia, Denies sinus pain and Denies sore throat Card Denies chest pain, Denies irregular heart rhythm, Denies palpitations and Denies dyspnea Resp Denies chest congestion, Denies cough, Denies dyspnea and Denies wheezing GI Denies abdominal pain, Denies constipation, Denies dysphagia, Denies heartburn, Denies diarrhea, Denies nausea, Denies odynophagia and Denies vomiting Denies difficulty voiding, Denies dysuria and Denies urinary urgency Musc Reports back pain (on and off, over the lower back), Reports arthralgias (on and off, involving multiple joints, especially in the L knee) and Reports neck pain (recurrent) Skin/Breast Denies rash Neuro Denies dizziness, Reports headache(s) (recurrent) and Denies paresthesias Psych Denies anxiety and Denies depression Endo Denies fatigue and Denies palpitations Jayson/Lymph Denies easy bruising Aller/Immun Reports seasonal rhinorrhea and Denies wheezing Physical exam (Primary Care) Vital Signs: Last Vital Signs Pulse 72 03/14/25 14:23 BP 122/90 H 03/14/25 14:23 Pulse Ox 99 03/14/25 14:23 Oxygen Delivery Method Room Air 03/14/25 14:23 BMI result Body Mass Index 33.7 Tobacco/Smoking Status: Tobacco use Status Tobacco use date assessed 03/14/25 03/14/25 14:27 Patient Tobacco Use Status Former Tobacco user 03/14/25 14:27 e-Cigarette/Vaping Use Never Used 03/14/25 14:27 PHQ-9: PHQ-9 Score PHQ-9: Total score 1 03/14/25 15:13 Depression Screening Interpretation: Negative Thrive Assessment: Date of Thrive Assessment Date Thrive assessed 03/14/25 03/14/25 14:27 Currently or been in a relationship where the following occur: No concerns reported Const General: no acute distress and alert HENMT Ears: TM's normal bilaterally and EAC's normal Throat: Yes posterior oropharynx normal and Yes tonsils normal (no TP congestion) Neck Neck: No lymphadenopathy and Yes tender Thyroid: Thyroid normal Resp Auscultation: clear to auscultation bilaterally, no rales and no wheezes Cardio Rate: regular rate Rhythm: regular rhythm Heart sounds: no murmurs GI Palpation (GI): Soft to palpation and nontender Auscultation: normal bowel sounds General: Yes no CVA tenderness Back/Spine/Pelvis Back: no CVA tenderness Cervical Spine: cervical muscular tenderness (bilateral; on and off) Thoracic/Lumbar Spine: lumbar spinal tenderness Skin Rashes: no rashes Extrem General: Yes no clubbing, cyanosis or edema Left lower extremity: knee Details: tenderness Location: of the pre-patellar area and of the infrapatellar area; no swelling Coding Level of Care Code Est Pt Level 4 (13632) Diagnoses Midline low back pain without sciatica, unspecified chronicity M54.50 Back pain laterality: midline Chronicity: unspecified Sciatica presence: without sciatica Mild intermittent asthma without complication J45.20 Asthma complication type: uncomplicated Asthma persistence: intermittent Asthma severity: mild Allergic rhinitis, unspecified seasonality, unspecified trigger J30.9 Allergic rhinitis trigger: unspecified Allergic rhinitis seasonality: unspecified Vitamin D deficiency E55.9 GERD without esophagitis K21.9 Migraine without status migrainosus, not intractable, unspecified migraine type G43.909 Migraine type: unspecified Status migrainosus presence: without status migrainosus Intractability: not intractable Neck pain M54.2 Patellofemoral arthralgia of left knee M25.562 Obesity (BMI 30-39.9) E66.9 Additional Codes PHQ-9 - 79116 - PHQ-9 Billing: Yes ([id number]) Assessment & Plan Assessment & Plan (1) Low back pain: Code(s): M54.50 - Low back pain, unspecified Category: Medical Qualifiers: Back pain laterality: midline Chronicity: unspecified Sciatica presence: without sciatica Qualified Code(s): M54.50 - Low back pain, unspecified Plan: Reinforced activity and weight-lifting restrictions Continue Lidocaine patches 5% QD PRN and Ibuprofen 400 mg Q 6 to 8 hours PRN for pain X-rays of the lumbar spine done back in June 2024 came back normal but more recent lumbar x-rays in October 2024 revealed (+) degenerative changes include facet arthropathy by radiographs. There are no acute compression fracture of the 5 lumbar vertebrae Will go ahead and refer her to physical therapy for further evaluation and management of her low back pain (2) Asthma: Code(s): J45.909 - Unspecified asthma, uncomplicated Category: Medical Qualifiers: Asthma complication type: uncomplicated Asthma persistence: intermittent Asthma severity: mild Qualified Code(s): J45.20 - Mild intermittent asthma, uncomplicated Plan: Controlled Continue Montelukast 10 mg Q PM and Ventolin HFA 2 inhalations Q 6 hours PRN Per request, will provide her with Rx for a nebulizer for home use as needed (3) Allergic rhinitis: Code(s): J30.9 - Allergic rhinitis, unspecified Category: Medical Qualifiers: Allergic rhinitis trigger: unspecified Allergic rhinitis seasonality: unspecified Qualified Code(s): J30.9 - Allergic rhinitis, unspecified Plan: Continue Cetirizine 10 mg QD PRN, Fluticasone 50 mcg nasal spray QD PRN and OTC Benadryl PRN (4) Vitamin D deficiency: Code(s): E55.9 - Vitamin D deficiency, unspecified Category: Medical Plan: Continue Vitamin D3 1250 mcg once a week (5) GERD without esophagitis: Code(s): K21.9 - Gastro-esophageal reflux disease without esophagitis Category: Medical Plan: Dietary restrictions reinforced Continue Omeprazole 40 mg QD - patient states that her symptoms are well- controlled as long as she stays on her Rx (6) Migraine: Code(s): G43.909 - Migraine, unspecified, not intractable, without status migrainosus Category: Medical Qualifiers: Migraine type: unspecified Status migrainosus presence: without status migrainosus Intractability: not intractable Qualified Code(s): G43.909 - Migraine, unspecified, not intractable, without status migrainosus Plan: Reinforced avoidance of migraine triggers Continue Ibuprofen 400 mg Q 6 to 8 hours PRN Due to increasing frequency of headaches, will try starting her on a trial of topiramate 25 mg Q HS for headache prophylaxis (7) Neck pain: Code(s): M54.2 - Cervicalgia Category: Medical Plan: Cervical spine x-rays done in the past came out normal Continue Cyclobenzaprine 5 mg Q HS PRN and Ibuprofen 400 mg Q 6 to 8 hours PRN for pain (8) Patellofemoral arthralgia of left knee: Code(s): M25.562 - Pain in left knee Category: Medical Plan: Continue Tramadol 50 mg TID PRN and Ibuprofen 400 mg Q 6 to 8 hours PRN for pain Follow up with orthopedics as scheduled (9) Obesity (BMI 30-39.9): Code(s): E66.9 - Obesity, unspecified Category: Medical Plan: Reinforced diet/exercise as tolerated/lose weight Plan Follow up in 3 months Orders: Orders PT Evaluation and Treatment 03/14/25 M54.50 - Low back pain, unspecified Medications: New topiramate 25 mg PO BEDTIME 30 tabs 3RF headaches 30 days [NEBULIZER and all related accessories] As directed 1 ea 0RF J45.20 - Mild intermittent asthma, uncomplicated
--- OUTSIDE RECORDS SUMMARY | 2025-03-14 18:09 | XMS_ITS | Encounter Summary ---
Author Organization [facility] Address [address] [place] [address] Phone Care Team Providers Care Landcare Facilitator Name Role Phone Brionna Rey MD Primary Care Provider Encounter Details Date Type Department Care Team (Late st Contact Info) Description 11/18/2010 Documentation [facility] [place] Family Medicine [address] [place] [address] Family Medicine, Physician [address] [place], [place] [id number] Social History Tobacco Use Types Packs/Day Years [...] on filedocumented in this encounter Care Teams Landcare Facilitator Relationship Specialty Start Date End Date Brionna Rey MD [address] [place] [address] [place] Banda [id number] PCP - General 11/28/16 07/31/22 documented as of this encounter
--- OUTSIDE RECORDS SUMMARY | 2025-03-14 18:09 | XMS_ITS | Clinical Summary ---
Author Organization [facility] Address [address] [place] [phone] Phone Care Team Providers Care Chief Psychologist Name Role Phone Unavailable Primary Care Provider [...] complete this topic Procedures * Due to [employer] law, this organization might not be sharing sensitive test results. Procedure Name Priority Date/Time Associated Diagnosis Comments CHLAMYDIA AND GONORRHEA, AMPLIFIED Routine 10/08/2009 1:20 PM EDT from Last 3 Months or Most Recently Relevant to Health Maintenance Results * Due to [employer] law, this organization might not be sharing sensitive test results. * Chlamydia and Gonorrhoea, Amplified (10/08/2009 1:20 PM EDT) URINE GC AMP PROBE NEGATIVE [facility] Comment: NO NEISSERIA GONORRHOEAE RNA DETECTED IN THIS PATIENT'S SAMPLE. (REFERENCE RANGE/NORMAL VALUE: NOT DETECTED) NOTE: THIS TEST USES CERTIFIED MEDICAL TECHNICIAN ASSISTANT MEDIATED AMPLIFICATION METHOD TO DETECT rRNA FROM [...] AGENTS. URINE CHLAMYDIA AMP PROBE NEGATIVE [facility] Comment: NO CHLAMYDIA TRACHOMATIS RNA DETECTED IN THIS PATIENT'S SAMPLE. (REFERENCE RANGE/NORMAL VALUE: NOT DETECTED) 10/08/2009 1:20 PM EDT Narrative [facility] - 10/08/2009 1:20 PM EDT URINE CHLAMYDIA GC AMP PROBE us Brionna Rey MD LAB MICROBIOLOGY - GENERAL O RDERABLES Final Result [facility] [address] [place] [address], [place] from Last 3 Months or Most Recently Relevant to Health Maintenance
--- OUTSIDE RECORDS SUMMARY | 2025-03-14 18:09 | XMS_ITS | Clinical Summary ---
Author Organization [facility] it[facility] Address [address] [place] [address] Care Team Providers Care Concession Worker Name Role Phone Unavailable Primary Care Provider [...] series) 2018 Depression Screening 04/20/2024 COVID-19 Vaccine (1 - 2024-2 6 season) 2024 Influenza Vaccine (#1) 2024 RSV [...]
== END 2025-03-14 15:18 | disposition home or self-care (01) ==
LOC: HO.HMCH 14:16
PROVIDERS: PCP Internal Medicine; Visit Provider Internal Medicine
DX: M54.50 Low back pain, unspecified (principal); J45.20 Mild intermittent asthma, uncomplicated; E66.9 Obesity, unspecified; Z68.33 Body mass index [BMI] 33.0-33.9, adult; J30.9 Allergic rhinitis, unspecified; E55.9 Vitamin D deficiency, unspecified; K21.9 Gastro-esophageal reflux disease without esophagitis; G43.909 Migraine, unspecified, not intractable, without status migrainosus; M54.2 Cervicalgia; M25.562 Pain in left knee

== ENCOUNTER → 2025-03-14 14:15 | Outpatient (BNVA) | payer OTHER, SELFPAY | PROVIDERS: PCP Internal Medicine; Visit Provider Internal Medicine | DX: J45.20 Mild intermittent asthma, uncomplicated (principal); M54.50 Low back pain, unspecified; J30.9 Allergic rhinitis, unspecified; E55.9 Vitamin D deficiency, unspecified; K21.9 Gastro-esophageal reflux disease without esophagitis; G43.909 Migraine, unspecified, not intractable, without status migrainosus; M54.2 Cervicalgia; M25.562 Pain in left knee; E66.9 Obesity, unspecified; Z68.33 Body mass index [BMI] 33.0-33.9, adult | CPT/HCPCS: 96127; 99212 ==